=== PATIENT | male | born 1960 | race Asian ===

== ENCOUNTER 2020-03-11 10:15 | Outpatient (REF) | payer OTHER, SELFPAY ==
[2020-03-11 12:09] LABS: Hematocrit 39.6 % (42-52); Hemoglobin 13.7 g/dl (14.0-18.0); Mean Corpuscular HGB Conc 34.6 g/dl (31.0-36.0); Mean Corpuscular Hemoglobin 27.8 pg (27.0-33.0); Mean Corpuscular Volume 80.3 fL (80-98); Mean Platelet Volume 10.2 fL (9.4-12.4); Platelet Count 178 X10*3/uL (160-400); Red Blood Count 4.93 X10*6/uL (4.60-5.80); Red Cell Distribution Width 13.2 % (11.0-16.0); White Blood Count 4.4 X10*3/uL (4.8-10.8)
[2020-03-11 13:06] LABS: Folate 6.8 ng/mL (> or = 4.0); Vitamin B12 1566 pg/mL (200-900)
[2020-03-11 13:07] LABS: Erythrocyte Sedimentation Rate 48 MM/HR (0-15)
[2020-03-11 13:14] LABS: Lymphocytes Absolute Manual 0.8 X10*3/uL (0.6-4.8); Lymphocytes Percent Manual 18 % (20-40); Monocytes Absolute Manual 0.1 X10*3/uL (0.0-1.2); Monocytes Percent Manual 3 % (2-11); Neutrophils Percent Manual 79 % (45-73)
[2020-03-11 13:15] LABS: Band Neutrophils Percent 0 % (3-5); Platelet Estimate NORMAL (NORMAL); Platelet Morphology Comment NORMAL; RBC Morphology NORMAL
[2020-03-11 13:29] LABS: Neutrophils Absolute Manual 3.5 X10*3/uL (2.2-7.9)
[2020-03-11 13:39] LABS: Alanine Aminotransferase 20 U/L (0-40); Albumin Level 4.2 g/dL (3.5-5.0); Alkaline Phosphatase 53 U/L (39-117); Anion Gap 15 (12-20); Aspartate Amino Transferase 22 U/L (5-37); Bilirubin Total 0.9 mg/dL (0.0-1.0); Blood Urea Nitrogen 11 mg/dL (9-16); Calcium 8.7 mg/dL (8.4-10.2); Carbon Dioxide 29 mmol/L (22-29); Chloride 99 mmol/L (96-108); Estimated Glomerular Filt Rate > 60; Glucose Random 133 mg/dL (60-115); Lactate Dehydrogenase 407 U/L (118-273); Potassium 4.3 mmol/l (3.3-5.1); Sodium 139 mmol/L (135-145); Total Protein 6.8 g/dL (6.5-8.0)
[2020-03-11 13:47] LABS: Ferritin 816 ng/mL (20-250)
== END 2020-03-11 10:16 | disposition home or self-care (01) ==
LOC: HO.LAB 10:15
PROVIDERS: Visit Provider Internal Medicine Medical Oncology
DX: C83.00 Small cell B-cell lymphoma, unspecified site (principal); D70.9 Neutropenia, unspecified; I82.409 Acute embolism and thrombosis of unspecified deep veins of unspecified lower extremity
CPT/HCPCS: 36415; 80053; 82607; 82728; 82746; 83615; 85007; 85025; 85027; 85652; 87071; 87205

== ENCOUNTER 2020-03-15 13:07 | Outpatient (REF) | payer OTHER, SELFPAY ==
--- NOTE | 2020-03-15 | US_ITS ---
EXAMINATION: US VENOUS ULTRASOUND WITH DOPPLER LOWER EXTREMITY, RIGHT CLINICAL INFORMATION: Right leg pain and swelling. Lymphoma. Assess for occult DVT. COMPARISON: None TECHNIQUE: Ultrasound of the deep veins is performed from the hip to the calf with compression sonography and color and pulse Doppler assessment. Spectral analysis with color-flow imaging is performed. FINDINGS: There is normal venous compression and respiratory variation and augmented flow. The visualized common femoral vein, superficial femoral vein, profunda femoral vein, popliteal vein, and the trifurcation region shows no evidence of deep venous thrombosis. There is a small cystic area at the lateral calf in the area of symptoms with overall dimensions only 1.2 x 0.9 x 1.1 cm. This resides 2.7 cm deep to the skin. There is some surrounding hyperemia on color Doppler. No internal color flow. Finding is nonspecific. This may represent small residual extension of a popliteal fossa cyst, or, sequela from prior trauma. No solid mass soft tissue. No edema tracking in soft tissue planes. US/US venous duplex LE RT IMPRESSION: 1. No DVT demonstrated in the right lower extremity. 2. Small cystic area lateral calf in area of symptoms 1.2 cm in greatest dimension with some surrounding hyperemia on color Doppler. Finding is nonspecific, possibly residual extension of the popliteal fossa cyst, or sequela from prior trauma. No solid soft tissue mass or edema tracking in soft tissue planes.
== END 2020-03-15 13:08 | disposition home or self-care (01) ==
LOC: HO.HMGCX 13:07
PROVIDERS: Visit Provider Internal Medicine Medical Oncology
DX: C83.00 Small cell B-cell lymphoma, unspecified site (principal); I82.409 Acute embolism and thrombosis of unspecified deep veins of unspecified lower extremity
CPT/HCPCS: 93971

== ENCOUNTER 2020-04-12 13:59 | Outpatient (REF) | payer OTHER, SELFPAY ==
[2020-04-12 14:58] LABS: Blood Urea Nitrogen 8 mg/dL (9-16); Estimated Glomerular Filt Rate > 60
== END 2020-04-12 14:00 | disposition home or self-care (01) ==
LOC: HO.LAB 13:59
PROVIDERS: Visit Provider Internal Medicine Medical Oncology
DX: C83.00 Small cell B-cell lymphoma, unspecified site (principal)
CPT/HCPCS: 82565; 84520

== ENCOUNTER 2020-04-16 09:09 | Outpatient (REF) | payer OTHER, SELFPAY ==
--- NOTE | 2020-04-16 09:13 | CT_ITS ---
EXAMINATION: CT CHEST, ABDOMEN AND PELVIS WITH IV CONTRAST CLINICAL INFORMATION: Lymphoma COMPARISON: Previous CT scan most recent 08/08/2019 and PET/CT scan August 2017 TECHNIQUE: Axial images through the chest, abdomen and pelvis following oral and 85 mL Omnipaque 350 intravenous contrast. Sagittal and coronal reconstructions on the technologist workstation were performed. Patient dose 137+3 3 5 mg/cm. FINDINGS: Chest: The previously identified new small noncalcified right upper lobe nodules on August 2019 exam are no longer seen. There is a new 2 mm noncalcified left upper lobe nodule axial image 182 series 5. There is a 4 mm calcified superior segment left lower lobe nodule axial image 249 series 5 that is stable. The lungs are otherwise clear. There is a 2 cm left thyroid nodule that is stable. There are small mediastinal and hilar lymph nodes that are stable. No enlarged lymph nodes are seen. There is mild coronary artery calcification. The heart does not appear enlarged. There is no pericardial effusion. There is no pleural effusion or pleural thickening. No chest wall mass or enlarged axillary lymph nodes are seen. Abdomen and pelvis: There is a low-attenuation lesion in the posterior segment of the right lobe of the liver with slight peripheral enhancement. Probable likely represents a benign hemangioma. This is similar to previous exams. The liver is otherwise unremarkable. There is a small focus of low attenuation in the gallbladder questionable for cholesterol gallstone. The pancreas is unremarkable. The spleen is unremarkable. The adrenal glands and kidneys are unremarkable. Bladder is not optimally distended. There may be mild diffuse bladder wall thickening. The prostate gland does not appear enlarged. There is mild diverticulosis of the colon. No evidence of diverticulitis is seen. Small and large bowel is otherwise unremarkable. The appendix is unremarkable. The stomach is unremarkable. There are no enlarged lymph nodes. There is a small umbilical hernia containing fat. Vascular structures are unremarkable. There are mild degenerative changes of the spine. Bony structures are otherwise unremarkable. CT/CT abdomen pelvis w con IMPRESSION: Chest: Stable calcified left lower lobe nodule. New small noncalcified left upper lobe nodule. Previously identified small nodules in the right upper lobe on August 2019 exam are no longer seen. Coronary artery calcification. Stable thyroid nodule. Abdomen and pelvis: Stable liver lesion probably representing a hemangioma. Mild diverticulosis of the colon.
[2020-04-16] MEDS: iohexoL 350 MG/ML 100 ML INFUS..BTL 85 ML IV (09:48)
== END 2020-04-16 09:10 | disposition home or self-care (01) ==
LOC: HO.CT 09:09
PROVIDERS: Visit Provider Internal Medicine Medical Oncology
DX: C83.00 Small cell B-cell lymphoma, unspecified site (principal)
CPT/HCPCS: 71260; 74177; Q9967

== ENCOUNTER 2020-05-25 13:17 | Outpatient (REF) | payer OTHER, SELFPAY ==
[2020-05-25 13:56] LABS: Hematocrit 40.9 % (42-52); Hemoglobin 14.1 g/dl (14.0-18.0); Mean Corpuscular HGB Conc 34.5 g/dl (31.0-36.0); Mean Corpuscular Hemoglobin 27.6 pg (27.0-33.0); Mean Platelet Volume 9.9 fL (9.4-12.4); Platelet Count 193 X10*3/uL (160-400); Red Blood Count 5.11 X10*6/uL (4.60-5.80); Red Cell Distribution Width 13.5 % (11.0-16.0); White Blood Count 3.7 X10*3/uL (4.8-10.8)
[2020-05-25 14:25] LABS: Alanine Aminotransferase 22 U/L (0-40); Albumin Level 4.3 g/dL (3.5-5.0); Alkaline Phosphatase 64 U/L (39-117); Anion Gap 11 (12-20); Aspartate Amino Transferase 22 U/L (5-37); Bilirubin Total 0.4 mg/dL (0.0-1.0); Blood Urea Nitrogen 11 mg/dL (9-16); Calcium 9.6 mg/dL (8.4-10.2); Carbon Dioxide 33 mmol/L (22-29); Chloride 101 mmol/L (96-108); Estimated Glomerular Filt Rate > 60; Glucose Random 139 mg/dL (60-115); Lactate Dehydrogenase 318 U/L (118-273); Potassium 4.9 mmol/l (3.3-5.1); Sodium 140 mmol/L (135-145); Total Protein 6.4 g/dL (6.5-8.0)
[2020-05-25 14:40] LABS: Atypical Lymphs Percent Manual 1 % (0-6); Band Neutrophils Percent 2 % (3-5); Eosinophils Absolute Manual 0.2 X10*3/UL (0.0-0.8); Eosinophils Percent Manual 5 % (0-4); Lymphocytes Absolute Manual 0.7 X10*3/uL (0.6-4.8); Lymphocytes Percent Manual 18 % (20-40); Monocytes Absolute Manual 0.1 X10*3/uL (0.0-1.2); Monocytes Percent Manual 3 % (2-11); Myelocytes Percent 1 %; Neutrophils Absolute Manual 2.7 X10*3/uL (2.2-7.9); Neutrophils Percent Manual 70 % (45-73)
[2020-05-25 14:41] LABS: Platelet Estimate NORMAL (NORMAL); Platelet Morphology Comment NORMAL; RBC Morphology NORMAL
[2020-05-25 14:42] LABS: WBC Morphology Comment DYSMORPHIC
[2020-05-25 15:06] LABS: Erythrocyte Sedimentation Rate 14 MM/HR (0-15)
== END 2020-05-25 13:18 | disposition home or self-care (01) ==
LOC: HO.LAB 13:17
PROVIDERS: Visit Provider Internal Medicine Medical Oncology
DX: C83.00 Small cell B-cell lymphoma, unspecified site (principal); C88.0 Waldenstrom macroglobulinemia; E61.1 Iron deficiency
CPT/HCPCS: 36415; 80053; 83615; 85007; 85025; 85027; 85652

== ENCOUNTER → 2020-07-07 09:13 | Outpatient (BNVA) | payer OTHER, SELFPAY | PROVIDERS: Visit Provider Internal Medicine Cardiovascular Disease | DX: R06.00 Dyspnea, unspecified (principal); M79.603 Pain in arm, unspecified; I10 Essential (primary) hypertension; Z79.899 Other long term (current) drug therapy | CPT/HCPCS: 93005 ==

== ENCOUNTER 2020-07-30 06:25 | Outpatient (REF) | payer OTHER, SELFPAY ==
[2020-07-30 07:54] LABS: Basophils Percent Auto 1.1 % (0-2); Eosinophils Absolute Auto 0.2 X10*3/uL (0.0-0.4); Eosinophils Percent Auto 6.3 % (0-4); Hematocrit 41.4 % (42-52); Hemoglobin 14.3 g/dl (14.0-18.0); Imm Gran Abs Auto 0.05 X10*3/uL (0.00-0.03); Imm Gran Pct Auto 1.8 % (0.0-0.4); Lymphocytes Absolute Auto 0.7 X10*3/uL (1.2-4.9); Lymphocytes Percent Auto 24.3 % (20-40); MANUAL DIFF FLAG SCAN; Mean Corpuscular HGB Conc 34.5 g/dl (31.0-36.0); Mean Corpuscular Hemoglobin 27.7 pg (27.0-33.0); Mean Corpuscular Volume 80.2 fL (80-98); Mean Platelet Volume 10.2 fL (9.4-12.4); Monocytes Absolute Auto 0.3 X10*3/uL (0.1-1.2); Monocytes Percent Auto 8.8 % (2-11); Neutrophils Absolute Auto 1.6 X10*3/uL (2.0-8.3); Neutrophils Percent Auto 57.7 % (45-73); Platelet Count 165 X10*3/uL (160-400); Red Blood Count 5.16 X10*6/uL (4.60-5.80); Red Cell Distribution Width 13.5 % (11.0-16.0); SCAN SMEAR FLAG 1; White Blood Count 2.8 X10*3/uL (4.8-10.8)
[2020-07-30 08:00] LABS: Estimated Average Glucose 131 mg/dL; Hemoglobin A1c % 6.2 %
[2020-07-30 08:24] LABS: SLIDE REVIEW VERIFIED
[2020-07-30 08:28] LABS: Erythrocyte Sedimentation Rate 14 MM/HR (0-15)
[2020-07-30 08:29] LABS: Alanine Aminotransferase 23 U/L (0-40); Albumin Level 4.1 g/dL (3.5-5.0); Alkaline Phosphatase 64 U/L (39-117); Anion Gap 14 (12-20); Aspartate Amino Transferase 24 U/L (5-37); Bilirubin Total 0.7 mg/dL (0.0-1.0); Blood Urea Nitrogen 9 mg/dL (9-16); Calcium 8.7 mg/dL (8.4-10.2); Carbon Dioxide 29 mmol/L (22-29); Chloride 102 mmol/L (96-108); Cholesterol 114 mg/dL; Estimated Glomerular Filt Rate > 60; Glucose Random 142 mg/dL (60-115); HDL Cholesterol 38 mg/dL; LDL Cholesterol Calculated 54 mg/dl; Lactate Dehydrogenase 284 U/L (118-273); Potassium 3.5 mmol/L (3.3-5.1); Sodium 141 mmol/L (135-145); Total Protein 6.4 g/dL (6.5-8.0); Triglycerides 112 mg/dL
== END 2020-07-30 06:26 | disposition home or self-care (01) ==
LOC: HO.LAB 06:25
PROVIDERS: Visit Provider Internal Medicine Medical Oncology
DX: C83.00 Small cell B-cell lymphoma, unspecified site (principal); C88.0 Waldenstrom macroglobulinemia; D63.0 Anemia in neoplastic disease; E61.1 Iron deficiency; D69.6 Thrombocytopenia, unspecified; R73.9 Hyperglycemia, unspecified; E66.3 Overweight
CPT/HCPCS: 36415; 80053; 80061; 83036; 83615; 85025; 85652

== ENCOUNTER 2020-10-02 07:32 | Outpatient (REF) | payer OTHER, SELFPAY ==
[2020-10-02 08:03] LABS: MANUAL DIFF FLAG NO
[2020-10-02 08:19] LABS: Basophils Percent Auto 0.7 % (0-2); Eosinophils Absolute Auto 0.1 X10*3/uL (0.0-0.4); Eosinophils Percent Auto 2.1 % (0-4); Hemoglobin 14.1 g/dl (14.0-18.0); Imm Gran Abs Auto 0.09 X10*3/uL (0.00-0.03); Imm Gran Pct Auto 3.1 % (0.0-0.4); Lymphocytes Absolute Auto 0.7 X10*3/uL (1.2-4.9); Lymphocytes Percent Auto 24.3 % (20-40); Mean Corpuscular HGB Conc 34.4 g/dl (31.0-36.0); Mean Corpuscular Hemoglobin 27.9 pg (27.0-33.0); Mean Platelet Volume 9.9 fL (9.4-12.4); Monocytes Absolute Auto 0.3 X10*3/uL (0.1-1.2); Monocytes Percent Auto 11.6 % (2-11); Neutrophils Absolute Auto 1.7 X10*3/uL (2.0-8.3); Neutrophils Percent Auto 58.2 % (45-73); Platelet Count 180 X10*3/uL (160-400); Red Blood Count 5.06 X10*6/uL (4.60-5.80); Red Cell Distribution Width 13.4 % (11.0-16.0); White Blood Count 2.9 X10*3/uL (4.8-10.8)
[2020-10-02 08:35] LABS: Alanine Aminotransferase 26 U/L (0-40); Albumin Level 4.3 g/dL (3.5-5.0); Alkaline Phosphatase 71 U/L (39-117); Anion Gap 13 (12-20); Aspartate Amino Transferase 24 U/L (5-37); Bilirubin Total 0.7 mg/dL (0.0-1.0); Blood Urea Nitrogen 9 mg/dL (9-16); Calcium 10.1 mg/dL (8.4-10.2); Carbon Dioxide 30 mmol/L (22-29); Chloride 101 mmol/L (96-108); Estimated Glomerular Filt Rate > 60; Glucose Fasting 102 mg/dL (60-99); Sodium 140 mmol/L (135-145); Total Protein 6.4 g/dL (6.5-8.0)
[2020-10-02 08:39] LABS: Lactate Dehydrogenase 309 U/L (118-273)
[2020-10-02 09:11] LABS: Erythrocyte Sedimentation Rate 13 MM/HR (0-15)
[2020-10-05 11:56] LABS: IgA 15 mg/dL (47-310); IgG 328 mg/dL (600-1640); IgM 587 mg/dL (50-300)
[2020-10-06 08:27] LABS: Viscosity 1.6 rel to H2O (1.5-1.9)
== END 2020-10-02 07:33 | disposition home or self-care (01) ==
LOC: HO.LAB 07:32
PROVIDERS: Visit Provider Internal Medicine Medical Oncology
DX: C83.00 Small cell B-cell lymphoma, unspecified site (principal); D70.9 Neutropenia, unspecified; D69.6 Thrombocytopenia, unspecified
CPT/HCPCS: 36415; 80053; 82784; 83615; 85025; 85652; 85810; 86334

== ENCOUNTER 2020-11-30 17:40 | Outpatient (REF) | payer OTHER, SELFPAY ==
[2020-11-30 18:12] LABS: Mean Corpuscular Hemoglobin 27.8 pg (27.0-33.0); Mean Corpuscular Volume 79.4 fL (80-98); Mean Platelet Volume 9.9 fL (9.4-12.4); Platelet Count 182 X10*3/uL (160-400); Red Blood Count 5.04 X10*6/uL (4.60-5.80); Red Cell Distribution Width 13.4 % (11.0-16.0); White Blood Count 3.9 X10*3/uL (4.8-10.8)
[2020-11-30 18:26] LABS: Alanine Aminotransferase 25 U/L (0-40); Albumin Level 4.3 g/dL (3.5-5.0); Alkaline Phosphatase 75 U/L (39-117); Anion Gap 14 (12-20); Aspartate Amino Transferase 24 U/L (5-37); Bilirubin Total 0.8 mg/dL (0.0-1.0); Blood Urea Nitrogen 10 mg/dL (9-16); Calcium 9.4 mg/dL (8.4-10.2); Carbon Dioxide 27 mmol/L (22-29); Chloride 102 mmol/L (96-108); Estimated Glomerular Filt Rate > 60; Glucose Random 220 mg/dL (60-115); Lactate Dehydrogenase 360 U/L (118-273); Potassium 3.9 mmol/L (3.3-5.1); Sodium 139 mmol/L (135-145); Total Protein 6.5 g/dL (6.5-8.0)
[2020-11-30 19:04] LABS: Atypical Lymphs Percent Manual 1 % (0-6); Band Neutrophils Percent 5 % (3-5); Eosinophils Percent Manual 1 % (0-4); Lymphocytes Absolute Manual 0.5 X10*3/uL (0.6-4.8); Lymphocytes Percent Manual 14 % (20-40); Metamyelocytes Absolute 0.3 X10*3/uL; Metamyelocytes Percent 8 %; Monocytes Absolute Manual 0.4 X10*3/uL (0.0-1.2); Monocytes Percent Manual 9 % (2-11); Myelocytes Absolute 0.2 X10*/uL; Myelocytes Percent 6 %; Neutrophils Absolute Manual 2.4 X10*3/uL (2.2-7.9); Neutrophils Percent Manual 56 % (45-73)
[2020-11-30 19:05] LABS: RBC Morphology NORMAL
[2020-11-30 19:08] LABS: Platelet Estimate NORMAL (NORMAL); Platelet Morphology Comment NORMAL
[2020-11-30 19:18] LABS: Erythrocyte Sedimentation Rate 13 MM/HR (0-15)
== END 2020-11-30 17:41 | disposition home or self-care (01) ==
LOC: HO.LAB 17:40
PROVIDERS: Visit Provider Internal Medicine Medical Oncology
DX: C83.00 Small cell B-cell lymphoma, unspecified site (principal); D69.6 Thrombocytopenia, unspecified; D63.0 Anemia in neoplastic disease
CPT/HCPCS: 36415; 80053; 83615; 85007; 85027; 85652

== ENCOUNTER 2020-12-01 08:04 | Outpatient (REF) | payer OTHER, SELFPAY ==
--- NOTE | ~2020-12-01 | CT_ITS ---
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 COMPARISON: CT abdomen 04/16/2020, 08/08/2019. TECHNIQUE: Multidetector volumetric images were obtained from the superior aspect of the liver through the pubic symphysis following administration 85 mL of Omnipaque 350 intravenous and oral 450 mL Redicat contrast. Sagittal and coronal reformatted images were obtained on the technologist's workstation. Oral contrast: No This CT examination was performed using dose optimization techniques as appropriate, variously including the following: *Automated exposure control *Adjustment of mA and/or kV according to patient size (this includes techniques or standardized protocols for targeted exams where dose is matched to indication/reason for exam; i.e. extremities or head) *Use of iterative reconstruction technique DLP: 375 mGy-cm FINDINGS: LUNG BASES: The heart size is normal. Minimal dependent atelectasis right lung base. No visible pulmonary nodule in this exam obtained through the lung bases. LIVER, GALLBLADDER, AND BILIARY TREE: The liver is normal in size, shape, and attenuation. There is a 3 mm low-attenuation round lesion in the posterior segment right hepatic lobe, stable. It is best visualized on axial image 12/. No intrahepatic ductal dilation. The gallbladder is unremarkable with no evidence of radiopaque gallstones, gallbladder wall thickening, or obvious pericholecystic inflammatory changes. PANCREAS: Unremarkable. SPLEEN: Unremarkable. ADRENAL GLANDS: Unremarkable. KIDNEYS AND URETERS: The kidneys are normal in size, shape, and attenuation. No hydronephrosis, hydroureter, or calculi seen. No perinephric stranding. BLADDER: Unremarkable. GASTROINTESTINAL TRACT: There is scattered colonic diverticuli, gas and stool without diverticulitis or distention. Oral contrast opacified small bowel loops are normal caliber. The stomach is nondistended and appears unremarkable. ABDOMINAL WALL: No significant hernia is appreciated. LYMPH NODES: Normal. VASCULAR: Unremarkable. PELVIC VISCERA: The prostate gland is normal size with minimal indentation of the base of bladder. No abnormal pelvic lymph nodes. No free fluid. Bilateral inguinal canal appears unremarkable. OSSEOUS STRUCTURES: Mild degenerative disc changes with posterior spondylosis L4-L5 disc level is noted. There is an artifact running throughout the upper mid abdomen and L1 vertebra. CT/CT abdomen pelvis w con IMPRESSION: No acute intra-abdominal process. Stable punctate right hepatic lobe lesion and colonic diverticulosis without diverticulitis. No major change from previous exam 04/16/2020
[2020-12-01] MEDS: iohexoL 350 MG/ML 100 ML INFUS..BTL 85 ML IV (08:37)
== END 2020-12-01 08:05 | disposition home or self-care (01) ==
LOC: HO.CT 08:04
PROVIDERS: Visit Provider Internal Medicine Medical Oncology
DX: C83.00 Small cell B-cell lymphoma, unspecified site (principal)
CPT/HCPCS: 74177; Q9967

== ENCOUNTER 2021-02-05 10:12 | Outpatient (REF) | payer OTHER, SELFPAY ==
[2021-02-05 10:49] LABS: Hematocrit 41.6 % (42-52); Hemoglobin 14.5 g/dl (14.0-18.0); Mean Corpuscular HGB Conc 34.9 g/dl (31.0-36.0); Mean Corpuscular Hemoglobin 27.7 pg (27.0-33.0); Mean Corpuscular Volume 79.5 fL (80-98); Mean Platelet Volume 9.6 fL (9.4-12.4); Platelet Count 182 X10*3/uL (160-400); Red Blood Count 5.23 X10*6/uL (4.60-5.80); Red Cell Distribution Width 13.8 % (11.0-16.0); White Blood Count 3.3 X10*3/uL (4.8-10.8)
[2021-02-05 11:15] LABS: Alanine Aminotransferase 24 U/L (0-40); Albumin Level 4.2 g/dL (3.5-5.0); Alkaline Phosphatase 70 U/L (39-117); Anion Gap 12 (12-20); Aspartate Amino Transferase 22 U/L (5-37); Bilirubin Total 0.6 mg/dL (0.0-1.0); Blood Urea Nitrogen 7 mg/dL (9-16); Calcium 9.5 mg/dL (8.4-10.2); Carbon Dioxide 29 mmol/L (22-29); Chloride 104 mmol/L (96-108); Estimated Glomerular Filt Rate > 60; Glucose Random 167 mg/dL (60-115); Lactate Dehydrogenase 286 U/L (118-273); Potassium 3.5 mmol/L (3.3-5.1); Sodium 141 mmol/L (135-145); Total Protein 6.3 g/dL (6.5-8.0)
[2021-02-05 11:35] LABS: Atypical Lymphs Percent Manual 1 % (0-6); Band Neutrophils Percent 17 % (3-5); Eosinophils Absolute Manual 0.2 X10*3/UL (0.0-0.8); Eosinophils Percent Manual 7 % (0-4); Lymphocytes Absolute Manual 0.4 X10*3/uL (0.6-4.8); Lymphocytes Percent Manual 13 % (20-40); Metamyelocytes Absolute 0.1 X10*3/uL; Metamyelocytes Percent 3 %; Monocytes Absolute Manual 0.1 X10*3/uL (0.0-1.2); Monocytes Percent Manual 2 % (2-11); Neutrophils Absolute Manual 2.4 X10*3/uL (2.2-7.9); Neutrophils Percent Manual 57 % (45-73)
[2021-02-05 11:37] LABS: Nucleated Red Blood Cells 0 /100WBC (0-0)
[2021-02-05 11:40] LABS: Microcytosis 2+ (15-30) /OIF; Platelet Estimate NORMAL (NORMAL); Platelet Morphology Comment NORMAL; RBC Morphology NOTED
[2021-02-05 11:44] LABS: Erythrocyte Sedimentation Rate 12 MM/HR (0-15)
[2021-02-07 23:17] LABS: PES - Abn Protein Band 1 0.4 g/dL (NONE DETECTED); Prot Elec - Alpha1 0.3 g/dL (0.2-0.3); Prot Elec - Alpha2 0.8 g/dL (0.5-0.9); Prot Elec - Beta 1 0.5 g/dL (0.4-0.6); Prot Elec - Beta 2 0.3 g/dL (0.2-0.5); Prot Elec - Gamma 0.7 g/dL (0.8-1.7); Prot Elec - Total Protein 6.6 g/dL (6.1-8.1)
[2021-02-08 23:16] LABS: Viscosity 1.7 rel to H2O (1.5-1.9)
[2021-02-10 13:37] LABS: IgA 15 mg/dL (47-310); IgG 330 mg/dL (600-1640); IgM 577 mg/dL (50-300)
== END 2021-02-05 10:13 | disposition home or self-care (01) ==
LOC: HO.LAB 10:12
PROVIDERS: Visit Provider Internal Medicine Medical Oncology
DX: C88.0 Waldenstrom macroglobulinemia (principal); E61.1 Iron deficiency; D70.9 Neutropenia, unspecified
CPT/HCPCS: 36415; 80053; 82784; 83615; 84165; 85007; 85027; 85652; 85810; 86334

== ENCOUNTER 2021-04-14 09:00 | Outpatient (REF) | payer OTHER, SELFPAY ==
[2021-04-14 09:33] LABS: MANUAL DIFF FLAG NO
[2021-04-14 09:51] LABS: Basophils Percent Auto 0.6 % (0-2); Eosinophils Absolute Auto 0.1 X10*3/uL (0.0-0.4); Eosinophils Percent Auto 2.3 % (0-4); Hematocrit 42.4 % (42.0-52.0); Hemoglobin 14.5 g/dl (14.0-18.0); Imm Gran Abs Auto 0.06 X10*3/uL (0.00-0.03); Imm Gran Pct Auto 1.7 % (0.0-0.4); Lymphocytes Absolute Auto 0.8 X10*3/uL (1.2-4.9); Lymphocytes Percent Auto 22.4 % (20-40); Mean Corpuscular HGB Conc 34.2 g/dl (31.0-36.0); Mean Platelet Volume 9.7 fL (9.4-12.4); Monocytes Absolute Auto 0.3 X10*3/uL (0.1-1.2); Monocytes Percent Auto 7.7 % (2-11); Neutrophils Absolute Auto 2.3 x10*3/uL (2.0-8.3); Neutrophils Percent Auto 65.3 % (45-73); Platelet Count 176 X10*3/uL (160-400); Red Blood Count 5.37 X10*6/uL (4.60-5.80); Red Cell Distribution Width 13.7 % (11.0-16.0); White Blood Count 3.5 X10*3/uL (4.8-10.8)
[2021-04-14 10:36] LABS: Alanine Aminotransferase 30 U/L (0-40); Albumin Level 4.2 g/dL (3.5-5.0); Alkaline Phosphatase 71 U/L (39-117); Anion Gap 11 (12-20); Aspartate Amino Transferase 22 U/L (5-37); Bilirubin Total 0.6 mg/dL (0.0-1.0); Blood Urea Nitrogen 9 mg/dL (9-16); Calcium 9.5 mg/dL (8.4-10.2); Carbon Dioxide 31 mmol/L (22-29); Chloride 103 mmol/L (96-108); Cholesterol 114 mg/dL; Estimated Glomerular Filt Rate > 60; Glucose Fasting 153 mg/dL (60-99); HDL Cholesterol 30 mg/dL; LDL Cholesterol Calculated 61 mg/dl; Potassium 3.9 mmol/L (3.3-5.1); Sodium 141 mmol/L (135-145); Total Protein 6.4 g/dL (6.5-8.0); Triglycerides 118 mg/dL
[2021-04-14 10:50] LABS: Erythrocyte Sedimentation Rate 10 MM/HR (0-15)
[2021-04-14 14:17] LABS: Lactate Dehydrogenase 300 U/L (118-273)
[2021-04-14 14:23] LABS: Estimated Average Glucose 157 mg/dL; Hemoglobin A1c % 7.1 %
== END 2021-04-14 09:01 | disposition home or self-care (01) ==
LOC: HO.LAB 09:00
PROVIDERS: Visit Provider Internal Medicine Medical Oncology
DX: C88.0 Waldenstrom macroglobulinemia (principal); D70.9 Neutropenia, unspecified; D63.0 Anemia in neoplastic disease; E66.3 Overweight
CPT/HCPCS: 36415; 80053; 80061; 83036; 83615; 85025; 85652

== ENCOUNTER 2021-06-14 11:25 | Outpatient (REF) | payer OTHER, SELFPAY ==
[2021-06-14 12:11] LABS: Basophils Percent Auto 0.6 % (0-2); Eosinophils Absolute Auto 0.1 X10*3/uL (0.0-0.4); Eosinophils Percent Auto 3.1 % (0-4); Hemoglobin 14.5 g/dl (14.0-18.0); Imm Gran Abs Auto 0.06 X10*3/uL (0.00-0.03); Imm Gran Pct Auto 1.8 % (0.0-0.4); Lymphocytes Absolute Auto 0.8 X10*3/uL (1.2-4.9); Lymphocytes Percent Auto 24.6 % (20-40); MANUAL DIFF FLAG SCAN; Mean Corpuscular HGB Conc 34.5 g/dl (31.0-36.0); Mean Corpuscular Volume 78.1 fL (80.0-98.0); Mean Platelet Volume 9.6 fL (9.4-12.4); Monocytes Absolute Auto 0.4 X10*3/uL (0.1-1.2); Monocytes Percent Auto 11.1 % (2-11); Neutrophils Absolute Auto 1.9 x10*3/uL (2.0-8.3); Neutrophils Percent Auto 58.8 % (45-73); Platelet Count 201 X10*3/uL (160-400); Red Blood Count 5.38 X10*6/uL (4.60-5.80); Red Cell Distribution Width 13.3 % (11.0-16.0); SCAN SMEAR FLAG 1; White Blood Count 3.3 X10*3/uL (4.8-10.8)
[2021-06-14 12:31] LABS: Alanine Aminotransferase 31 U/L (0-40); Albumin Level 4.4 g/dL (3.5-5.0); Alkaline Phosphatase 76 U/L (39-117); Anion Gap 13 (12-20); Aspartate Amino Transferase 28 U/L (5-37); Bilirubin Total 0.9 mg/dL (0.0-1.0); Blood Urea Nitrogen 9 mg/dL (9-16); Carbon Dioxide 30 mmol/L (22-29); Chloride 100 mmol/L (96-108); Estimated Glomerular Filt Rate > 60; Glucose Random 106 mg/dL (60-115); Lactate Dehydrogenase 278 U/L (118-273); Potassium 3.9 mmol/L (3.3-5.1); Sodium 139 mmol/L (135-145); Total Protein 6.6 g/dL (6.5-8.0)
[2021-06-14 13:22] LABS: SLIDE REVIEW VERIFIED
[2021-06-17 21:27] LABS: IgA 13 mg/dL (47-310); IgG 341 mg/dL (600-1640); IgM 525 mg/dL (50-300)
[2021-06-19 07:31] LABS: Viscosity 1.5 rel to H2O (1.5-1.9)
== END 2021-06-14 11:26 | disposition home or self-care (01) ==
LOC: HO.LAB 11:25
PROVIDERS: Visit Provider Internal Medicine Medical Oncology
DX: C83.00 Small cell B-cell lymphoma, unspecified site (principal); D70.9 Neutropenia, unspecified; D69.6 Thrombocytopenia, unspecified
CPT/HCPCS: 36415; 80053; 82784; 83615; 85025; 85810; 86334

== ENCOUNTER 2021-07-28 08:15 | Outpatient (REF) | payer OTHER, SELFPAY ==
[2021-07-28 08:49] LABS: MANUAL DIFF FLAG NO
[2021-07-28 09:23] LABS: Basophils Percent Auto 0.6 % (0-2); Eosinophils Absolute Auto 0.1 X10*3/uL (0.0-0.4); Eosinophils Percent Auto 2.6 % (0-4); Hematocrit 42.9 % (42.0-52.0); Hemoglobin 14.4 g/dl (14.0-18.0); Imm Gran Abs Auto 0.05 X10*3/uL (0.00-0.03); Imm Gran Pct Auto 1.4 % (0.0-0.4); Lymphocytes Absolute Auto 0.8 X10*3/uL (1.2-4.9); Lymphocytes Percent Auto 22.8 % (20-40); Mean Corpuscular HGB Conc 33.6 g/dl (31.0-36.0); Mean Corpuscular Hemoglobin 26.6 pg (27.0-33.0); Mean Corpuscular Volume 79.2 fL (80.0-98.0); Mean Platelet Volume 9.8 fL (9.4-12.4); Monocytes Absolute Auto 0.3 X10*3/uL (0.1-1.2); Monocytes Percent Auto 9.4 % (2-11); Neutrophils Absolute Auto 2.2 x10*3/uL (2.0-8.3); Neutrophils Percent Auto 63.2 % (45-73); Platelet Count 190 X10*3/uL (160-400); Red Blood Count 5.42 X10*6/uL (4.60-5.80); Red Cell Distribution Width 13.6 % (11.0-16.0); White Blood Count 3.5 X10*3/uL (4.8-10.8)
[2021-07-28 10:02] LABS: Erythrocyte Sedimentation Rate 9 MM/HR (0-15)
[2021-07-28 10:08] LABS: Alanine Aminotransferase 26 U/L (0-40); Albumin Level 4.1 g/dL (3.5-5.0); Alkaline Phosphatase 68 U/L (39-117); Anion Gap 14 (12-20); Aspartate Amino Transferase 23 U/L (5-37); Bilirubin Total 0.7 mg/dL (0.0-1.0); Blood Urea Nitrogen 8 mg/dL (9-16); Calcium 9.6 mg/dL (8.4-10.2); Carbon Dioxide 27 mmol/L (22-29); Chloride 103 mmol/L (96-108); Estimated Glomerular Filt Rate > 60; Glucose Random 120 mg/dL (60-115); Potassium 3.8 mmol/L (3.3-5.1); Sodium 140 mmol/L (135-145); Total Protein 6.3 g/dL (6.5-8.0)
[2021-07-28 10:29] LABS: Lactate Dehydrogenase 320 U/L (118-273)
[2021-07-29 13:41] LABS: Beta-2 Microglobulin, Serum 2.04 mg/L (< OR = 2.51)
[2021-07-29 14:36] LABS: PES - Abn Protein Band 1 0.3 g/dL (NONE DETECTED); Prot Elec - Albumin 3.8 g/dL (3.8-4.8); Prot Elec - Alpha1 0.4 g/dL (0.2-0.3); Prot Elec - Alpha2 0.8 g/dL (0.5-0.9); Prot Elec - Beta 1 0.5 g/dL (0.4-0.6); Prot Elec - Beta 2 0.2 g/dL (0.2-0.5); Prot Elec - Gamma 0.6 g/dL (0.8-1.7); Prot Elec - Total Protein 6.2 g/dL (6.1-8.1)
[2021-08-01 11:21] LABS: IgA 13 mg/dL (47-310); IgG 328 mg/dL (600-1640); IgM 484 mg/dL (50-300)
[2021-08-01 20:25] LABS: Viscosity 1.7 rel to H2O (1.5-1.9)
== END 2021-07-28 08:16 | disposition home or self-care (01) ==
LOC: HO.LAB 08:15
PROVIDERS: Visit Provider Internal Medicine Medical Oncology
DX: C88.0 Waldenstrom macroglobulinemia (principal); D69.6 Thrombocytopenia, unspecified; E61.1 Iron deficiency
CPT/HCPCS: 36415; 80053; 82232; 82784; 83615; 84165; 85025; 85652; 85810; 86334

== ENCOUNTER 2021-07-29 08:42 | Outpatient (REF) | payer OTHER, SELFPAY ==
--- NOTE | ~2021-07-29 | CT_ITS ---
EXAMINATION: CT ABDOMEN AND PELVIS WITH CONTRAST CLINICAL INFORMATION: Small B-cell lymphoma. COMPARISON: Previous CT of the abdomen and pelvis most recent November 2020 TECHNIQUE: Multidetector volumetric images were obtained from the superior aspect of the liver through the pubic symphysis following administration 85 mL of Omnipaque 350 intravenous contrast. Sagittal and coronal reformatted images were obtained on the technologist's workstation. Oral contrast: Yes. This CT examination was performed using dose optimization techniques as appropriate, variously including the following: *Automated exposure control *Adjustment of mA and/or kV according to patient size (this includes techniques or standardized protocols for targeted exams where dose is matched to indication/reason for exam; i.e. extremities or head) *Use of iterative reconstruction technique DLP: 457 mGy-cm for combined CT of the chest, abdomen and pelvis FINDINGS: LUNG BASES: The visualized lung bases are unremarkable. LIVER, GALLBLADDER, AND BILIARY TREE: The liver is normal in size, shape, and attenuation. There are 2 tiny low-attenuation lesions in the lateral segment of the left lobe axial image 11 and posterior segment of the right lobe axial image 12 series 3. These are stable. These are difficult to characterize due to small size but probably represent small cysts. No other focal liver lesion. No biliary duct dilatation. There is high attenuation seen dependently in the gallbladder questionable for sludge or small stones. PANCREAS: The uncinate process of the head of the pancreas is prominent but stable from previous exams. The pancreas is otherwise unremarkable. SPLEEN: Unremarkable. ADRENAL GLANDS: Unremarkable. KIDNEYS AND URETERS: The kidneys are normal in size, shape, and attenuation. No hydronephrosis, hydroureter, or calculi seen. No perinephric stranding. BLADDER: Unremarkable. GASTROINTESTINAL TRACT: There is diverticulosis of the colon. The small and large bowel are otherwise unremarkable. The appendix is unremarkable. ABDOMINAL WALL: No significant hernia is appreciated. LYMPH NODES: Normal. VASCULAR: Unremarkable. PELVIC VISCERA: Unremarkable. OSSEOUS STRUCTURES: There are mild degenerative changes of the spine. CT/CT abdomen pelvis w con IMPRESSION: Dependent attenuation in the gallbladder questionable for sludge or small stones. Otherwise stable exam including small probable liver cysts and mild diverticulosis of the colon. No adenopathy is seen. Fleischner guidelines were followed.
--- NOTE | ~2021-07-29 | CT_ITS ---
EXAMINATION: CT CHEST WITH CONTRAST CLINICAL INFORMATION: Small B-cell lymphoma. COMPARISON: Previous chest CT most recent April 2020. TECHNIQUE: Multidetector volumetric CT imaging of the chest was obtained after the administration of 85 mL of Omnipaque 350 intravenous contrast without immediate adverse reactions. Axial MIP volume rendering provided. Sagittal and coronal reformatted images were obtained. This CT examination was performed using dose optimization techniques as appropriate, variously including the following: *Automated exposure control *Adjustment of mA and/or kV according to patient size (this includes techniques or standardized protocols for targeted exams where dose is matched to indication/reason for exam; i.e. extremities or head) *Use of iterative reconstruction technique DLP: 457 mGy-cm for combined CT of the chest, abdomen and pelvis. FINDINGS: LOOM SETTER FOURDRINIER: Unremarkable. LUNGS: The 4 mm calcified superior segment left lower lobe nodule axial image 168 series 7 is stable. The lungs are otherwise clear. The previously identified new 2 mm noncalcified left upper lobe nodule on April 2020 exam is no longer seen and may represent bronchial soft tissue opacification. MEDIASTINUM: There is a 2 cm nodule in the left lobe of the thyroid gland that is stable. There are no enlarged hilar or mediastinal lymph nodes. The heart does not appear enlarged. There is mild coronary artery calcification. PLEURA: There is no pleural effusion. No pleural mass or thickening. AXILLA: No lymphadenopathy. UPPER ABDOMEN: Unremarkable. OSSEOUS STRUCTURES: There are mild degenerative changes of the spine. CT/CT chest w con IMPRESSION: Stable small calcified superior segment left lower lobe nodule. Stable 2 cm left thyroid nodule. Coronary artery calcification. Fleischner guidelines were followed.
[2021-07-29] MEDS: iohexoL 350 MG/ML 100 ML INFUS..BTL IV (09:26)
== END 2021-07-29 08:43 | disposition home or self-care (01) ==
LOC: HO.CT 08:42
PROVIDERS: Visit Provider Internal Medicine Medical Oncology
DX: C83.00 Small cell B-cell lymphoma, unspecified site (principal)
CPT/HCPCS: 71260; 74177; Q9967

== ENCOUNTER 2021-11-15 07:10 | Outpatient (REF) | payer OTHER, SELFPAY ==
[2021-11-15 07:53] LABS: Hematocrit 41.5 % (42.0-52.0); Hemoglobin 14.2 g/dl (14.0-18.0); Mean Corpuscular HGB Conc 34.2 g/dl (31.0-36.0); Mean Corpuscular Hemoglobin 26.8 pg (27.0-33.0); Mean Corpuscular Volume 78.3 fL (80.0-98.0); Platelet Count 184 X10*3/uL (160-400); Red Cell Distribution Width 13.7 % (11.0-16.0)
[2021-11-15 08:01] LABS: Estimated Average Glucose 154 mg/dL
[2021-11-15 08:26] LABS: Alanine Aminotransferase 27 U/L (0-40); Albumin Level 4.2 g/dL (3.5-5.0); Alkaline Phosphatase 68 U/L (39-117); Anion Gap 10 (12-20); Aspartate Amino Transferase 23 U/L (5-37); Bilirubin Total 0.9 mg/dL (0.0-1.0); Blood Urea Nitrogen 8 mg/dL (9-16); Calcium 9.5 mg/dL (8.4-10.2); Carbon Dioxide 30 mmol/L (22-29); Chloride 104 mmol/L (96-108); Cholesterol 121 mg/dL; Estimated Glomerular Filt Rate > 60; Glucose Fasting 133 mg/dL (60-99); HDL Cholesterol 33 mg/dL; LDL Cholesterol Calculated 59 mg/dl; Potassium 3.9 mmol/L (3.3-5.1); Sodium 140 mmol/L (135-145); Total Protein 6.2 g/dL (6.5-8.0); Triglycerides 145 mg/dL
[2021-11-15 08:39] LABS: Lactate Dehydrogenase 268 U/L (118-273)
[2021-11-15 08:44] LABS: Band Neutrophils Percent 33 % (3-5); Basophils Abs Manual 0.1 X10*3/uL (0.0-0.2); Basophils Percent Manual 2 % (0-2); Eosinophils Absolute Manual 0.1 X10*3/uL (0.0-0.4); Eosinophils Percent Manual 2 % (0-4); Lymphocytes Absolute Manual 0.5 X10*3/uL (1.2-4.9); Lymphocytes Percent Manual 17 % (20-40); Metamyelocytes Absolute 0.1 X10*3/uL; Metamyelocytes Percent 2 %; Monocytes Absolute Manual 0.1 X10*3/uL (0.1-1.2); Monocytes Percent Manual 4 % (2-11); Neutrophils Absolute Manual 2.2 X10*3/uL (2.0-8.3); Neutrophils Percent Manual 40 % (45-73)
[2021-11-15 08:47] LABS: Prostate Specific Antigen 0.78 ng/mL (<0.05-4.0)
[2021-11-15 08:53] LABS: RBC Morphology NOTED
[2021-11-15 08:54] LABS: Microcytosis 1+ (5-14) /OIF; Platelet Estimate NORMAL (NORMAL); Platelet Morphology Comment NORMAL
[2021-11-15 09:06] LABS: Creatinine Urine 87.52 mg/dL; Microalbumin Urine < 5.0 mg/L
[2021-11-17 17:16] LABS: Beta-2 Microglobulin, Serum 1.92 mg/L (< OR = 2.51)
[2021-11-17 22:01] LABS: PES - Abn Protein Band 1 0.3 g/dL (NONE DETECTED); Prot Elec - Albumin 3.8 g/dL (3.8-4.8); Prot Elec - Alpha1 0.3 g/dL (0.2-0.3); Prot Elec - Alpha2 0.7 g/dL (0.5-0.9); Prot Elec - Beta 1 0.5 g/dL (0.4-0.6); Prot Elec - Beta 2 0.3 g/dL (0.2-0.5); Prot Elec - Gamma 0.6 g/dL (0.8-1.7); Prot Elec - Total Protein 6.1 g/dL (6.1-8.1)
[2021-11-18 12:02] LABS: IgA 13 mg/dL (47-310); IgG 318 mg/dL (600-1640); IgM 444 mg/dL (50-300)
== END 2021-11-15 07:11 | disposition home or self-care (01) ==
LOC: HO.LAB 07:10
PROVIDERS: Visit Provider Internal Medicine Medical Oncology
DX: Z12.5 Encounter for screening for malignant neoplasm of prostate (principal); C83.00 Small cell B-cell lymphoma, unspecified site; I10 Essential (primary) hypertension; I25.10 Atherosclerotic heart disease of native coronary artery without angina pectoris; E11.9 Type 2 diabetes mellitus without complications
CPT/HCPCS: 36415; 80053; 80061; 82043; 82232; 82784; 83036; 83615; 84153; 84165; 85007; 85027; 86334

== ENCOUNTER 2022-02-20 07:22 | Outpatient (REF) | payer OTHER, SELFPAY ==
--- NOTE | ~2022-02-20 | XR_ITS ---
EXAMINATION: XR CHEST CLINICAL INFORMATION: History of lymphoma. Fever. Rule out out pneumonia. COMPARISON: Previous chest x-ray August [address] July 2021 TECHNIQUE: 2 views of the chest were obtained. FINDINGS: The cardiac and mediastinal contours are normal. Stable left upper nodule compared with previous CT likely represents a calcified granuloma. This is in between the left anterior third and fourth ribs. The lungs are otherwise clear without evidence of pneumonia. No pleural effusion or pneumothorax. Degenerative changes of the spine. XR/XR chest 2V IMPRESSION: No evidence of pneumonia.
[2022-02-20 08:11] LABS: Hematocrit 38.6 % (42.0-52.0); Hemoglobin 12.9 g/dl (14.0-18.0); Mean Corpuscular HGB Conc 33.4 g/dl (31.0-36.0); Mean Corpuscular Hemoglobin 25.5 pg (27.0-33.0); Mean Corpuscular Volume 76.4 fL (80.0-98.0); Mean Platelet Volume 9.5 fL (9.4-12.4); Platelet Count 196 X10*3/uL (160-400); Red Blood Count 5.05 X10*6/uL (4.60-5.80); Red Cell Distribution Width 13.2 % (11.0-16.0)
[2022-02-20 08:14] LABS: White Blood Count 2.3 X10*3/uL (4.8-10.8)
[2022-02-20 08:29] LABS: Appearance Urine Clear; Color Urine Yellow; Glucose Urine UA Negative (Negative); Leukocyte Esterase Urine Negative (Negative); Nitrite Urine Negative (Negative); PH 7.5 (5.0-9.0); Urine Blood Negative (Negative); Urine Ketones Negative (Negative); Urine Protein Negative (Neg-Trace)
[2022-02-20 08:40] LABS: Band Neutrophils Percent 33 % (3-5); Lymphocytes Absolute Manual 0.4 X10*3/uL (1.2-4.9); Lymphocytes Percent Manual 17 % (20-40); Monocytes Absolute Manual 0.1 X10*3/uL (0.1-1.2); Monocytes Percent Manual 6 % (2-11); Neutrophils Absolute Manual 1.8 X10*3/uL (2.0-8.3); Neutrophils Percent Manual 44 % (45-73)
[2022-02-20 08:44] LABS: Alanine Aminotransferase 18 U/L (0-40); Alkaline Phosphatase 47 U/L (39-117); Anion Gap 18 (12-20); Aspartate Amino Transferase 27 U/L (5-37); Bilirubin Total 0.7 mg/dL (0.0-1.0); Blood Urea Nitrogen 6 mg/dL (9-16); Calcium 9.3 mg/dL (8.4-10.2); Carbon Dioxide 25 mmol/L (22-29); Chloride 103 mmol/L (96-108); Dohle Bodies PRESENT; Estimated Glomerular Filt Rate > 60; Glucose Random 108 mg/dL (60-115); Lactate Dehydrogenase 379 U/L (118-273); Microcytosis 1+ (5-14) /OIF; Ovalocytes 1+ (5-14) /OIF; Polychromasia 1+ (0-2) /OIF; Potassium 3.9 mmol/L (3.3-5.1); RBC Morphology NOTED; Sodium 142 mmol/L (135-145); Total Protein 6.2 g/dL (6.5-8.0)
[2022-02-20 08:45] LABS: Platelet Estimate NORMAL (NORMAL); Platelet Morphology Comment NORMAL; WBC Morphology Comment DYSMORPHIC
[2022-02-20 09:07] LABS: Ferritin 377 ng/mL (20-250)
[2022-02-22 14:46] LABS: Beta-2 Microglobulin, Serum 3.12 mg/L (< OR = 2.51); IgA 12 mg/dL (47-310); IgG 283 mg/dL (600-1640); IgM 316 mg/dL (50-300)
[2022-02-22 21:55] LABS: PES - Abn Protein Band 1 0.2 g/dL (NONE DETECTED); Prot Elec - Albumin 3.3 g/dL (3.8-4.8); Prot Elec - Alpha1 0.5 g/dL (0.2-0.3); Prot Elec - Alpha2 1.2 g/dL (0.5-0.9); Prot Elec - Beta 1 0.4 g/dL (0.4-0.6); Prot Elec - Beta 2 0.3 g/dL (0.2-0.5); Prot Elec - Gamma 0.5 g/dL (0.8-1.7); Prot Elec - Total Protein 6.1 g/dL (6.1-8.1)
== END 2022-02-20 07:23 | disposition home or self-care (01) ==
LOC: HO.XRAY 07:22
PROVIDERS: Visit Provider Internal Medicine Medical Oncology
DX: C83.00 Small cell B-cell lymphoma, unspecified site (principal); D70.9 Neutropenia, unspecified; D63.0 Anemia in neoplastic disease; R30.0 Dysuria; R50.81 Fever presenting with conditions classified elsewhere
CPT/HCPCS: 36415; 71046; 80053; 81003; 82232; 82728; 82784; 83615; 84165; 85007; 85025; 85027

== ENCOUNTER 2022-03-02 14:03 | Outpatient (REF) | payer OTHER, SELFPAY ==
--- NOTE | ~2022-03-02 | CT_ITS ---
EXAMINATION: CT CHEST, ABDOMEN AND PELVIS WITH CONTRAST CLINICAL INFORMATION: Small cell B-cell lymphoma. COMPARISON: CT chest, abdomen and pelvis 07/29/2021. TECHNIQUE: Multidetector volumetric imaging was performed from the thoracic inlet through the pubic symphysis following administration of 85 mL Omnipaque 350. Sagittal and coronal reformatted images were obtained on the technologist's workstation. This CT examination was performed using dose optimization techniques as appropriate, variously including the following: *Automated exposure control *Adjustment of mA and/or kV according to patient size (this includes techniques or standardized protocols for targeted exams where dose is matched to indication/reason for exam; i.e. extremities or head) *Use of iterative reconstruction technique DLP: 755 mGy-cm FINDINGS: CHEST: Lung: No suspicious lung masses are seen. Some pleural thickening is noted along the major fissure on the right laterally. Some nonspecific ground-glass changes are seen with one large area in the right middle lobe measuring about 3.5 cm in size (7:284). An additional area is seen in the right lower lobe with infrahilar ground-glass changes and some small nodular densities (7:286). All of these findings are new when compared to the prior study. Mediastinum: A 2.3 x 1.8 x 2.4 cm mass is seen in the left lobe of the thyroid. A peripheral punctate calcification is present. Appearances are unchanged when compared to the prior. Mild coronary calcifications are present. Pericardium/Pleura: No significant effusion. No pleural mass or thickening. Chest Wall/Axilla: Unremarkable. ABDOMEN/PELVIS: Peritoneal Space: No significant free air or free fluid identified. Liver, Gallbladder, Biliary Tree: The liver is normal in size, shape, and attenuation. A tiny hypodensity is seen in a subcapsular position medially in the right lobe of the liver under a centimeter in size (15:54). No additional focal hepatic lesion or biliary ductal dilatation is present. The gallbladder is contracted and contains gallstones without obvious pericholecystic inflammatory changes. Pancreas: Unremarkable. Spleen: The spleen is mildly enlarged at 12.4 cm. Adrenal Glands: Unremarkable. Kidneys and Ureters: The kidneys are normal in size, shape, and attenuation. No hydronephrosis, hydroureter, or calculi seen. No perinephric stranding. Bladder: Unremarkable. Gastrointestinal Tract: The small and large bowel are unremarkable. The appendix is unremarkable. Abdominal Wall: No significant hernia is appreciated. Lymph Nodes: No lymphadenopathy. Vascular: Calcific plaque in the aorta and iliac vessels without aneurysm. The IVC appears unremarkable. PELVIC VISCERA: Mildly prominent prostate. Normal seminal vesicles. OSSEUS STRUCTURES: Mild degenerative changes are noted in the spine. No bony destructive lesions are seen. CT/CT abdomen pelvis w IV con IMPRESSION: 1. No evidence of lymphoma in the chest, abdomen or pelvis. 2. New ground-glass changes in the right lung as described above. These are most likely inflammatory. 3. Stable left thyroid mass. 4. Other incidental findings as described above. Fleischner guidelines were followed.
[2022-03-02 15:01] LABS: MANUAL DIFF FLAG NO
[2022-03-02 16:13] LABS: Basophils Percent Auto 0.6 % (0-2); Eosinophils Percent Auto 0.6 % (0-4); Hematocrit 38.7 % (42.0-52.0); Hemoglobin 12.8 g/dl (14.0-18.0); Imm Gran Abs Auto 0.05 X10*3/uL (0.00-0.03); Imm Gran Pct Auto 1.6 % (0.0-0.4); Lymphocytes Absolute Auto 0.8 X10*3/uL (1.2-4.9); Lymphocytes Percent Auto 24.8 % (20-40); Mean Corpuscular HGB Conc 33.1 g/dl (31.0-36.0); Mean Corpuscular Volume 75.7 fL (80.0-98.0); Mean Platelet Volume 9.7 fL (9.4-12.4); Monocytes Absolute Auto 0.4 X10*3/uL (0.1-1.2); Monocytes Percent Auto 11.8 % (2-11); Neutrophils Absolute Auto 1.9 x10*3/uL (2.0-8.3); Neutrophils Percent Auto 60.6 % (45-73); Platelet Count 233 X10*3/uL (160-400); Red Blood Count 5.11 X10*6/uL (4.60-5.80); Red Cell Distribution Width 13.2 % (11.0-16.0); White Blood Count 3.1 X10*3/uL (4.8-10.8)
[2022-03-02] MEDS: iohexoL 350 MG/ML 100 ML INFUS..BTL IV (16:31)
[2022-03-02] MEDS: Barium Sulfate Oral (Mocha) 450 ML ORAL.SUSP 900 ML PO (16:32)
[2022-03-02 16:38] LABS: Alanine Aminotransferase 22 U/L (0-40); Alkaline Phosphatase 47 U/L (39-117); Anion Gap 16 (12-20); Aspartate Amino Transferase 27 U/L (5-37); Bilirubin Total 0.9 mg/dL (0.0-1.0); Blood Urea Nitrogen 7 mg/dL (9-16); Calcium 9.2 mg/dL (8.4-10.2); Carbon Dioxide 26 mmol/L (22-29); Chloride 103 mmol/L (96-108); Estimated Glomerular Filt Rate > 60; Glucose Random 76 mg/dL (60-115); Sodium 141 mmol/L (135-145); Total Protein 6.3 g/dL (6.5-8.0)
[2022-03-02 16:44] LABS: Erythrocyte Sedimentation Rate 62 MM/HR (0-15)
[2022-03-04 14:33] LABS: Beta-2 Microglobulin, Serum 2.44 mg/L (< OR = 2.51)
[2022-03-05 03:17] LABS: TS Negative Control Passed; TS Panel A 0; TS Panel B 7; TS Positive Control Passed; TSpotTB Borderline (Negative)
== END 2022-03-02 14:04 | disposition home or self-care (01) ==
LOC: HO.CT 14:03
PROVIDERS: Visit Provider Internal Medicine Medical Oncology
DX: Z11.1 Encounter for screening for respiratory tuberculosis (principal); C88.0 Waldenstrom macroglobulinemia; F50.81 Binge eating disorder; D72.819 Decreased white blood cell count, unspecified; E53.8 Deficiency of other specified B group vitamins
CPT/HCPCS: 36415; 71260; 74177; 80053; 82232; 85025; 85652; 86481; Q9967

== ENCOUNTER 2022-03-15 10:48 | Outpatient (REF) | payer OTHER, SELFPAY ==
[2022-03-15 12:21] LABS: MANUAL DIFF FLAG NO
[2022-03-15 12:36] LABS: Basophils Percent Auto 0.3 % (0-2); Hematocrit 37.9 % (42.0-52.0); Hemoglobin 12.8 g/dl (14.0-18.0); Imm Gran Abs Auto 0.11 X10*3/uL (0.00-0.03); Imm Gran Pct Auto 1.8 % (0.0-0.4); Lymphocytes Absolute Auto 0.7 X10*3/uL (1.2-4.9); Lymphocytes Percent Auto 11.2 % (20-40); Mean Corpuscular HGB Conc 33.8 g/dl (31.0-36.0); Mean Corpuscular Hemoglobin 25.2 pg (27.0-33.0); Mean Corpuscular Volume 74.8 fL (80.0-98.0); Mean Platelet Volume 9.9 fL (9.4-12.4); Monocytes Absolute Auto 0.5 X10*3/uL (0.1-1.2); Monocytes Percent Auto 7.5 % (2-11); Neutrophils Absolute Auto 4.8 x10*3/uL (2.0-8.3); Neutrophils Percent Auto 79.2 % (45-73); Platelet Count 195 X10*3/uL (160-400); Red Blood Count 5.07 X10*6/uL (4.60-5.80); Red Cell Distribution Width 13.9 % (11.0-16.0)
[2022-03-15 13:05] LABS: Alanine Aminotransferase 15 U/L (0-40); Albumin Level 3.9 g/dL (3.5-5.0); Alkaline Phosphatase 44 U/L (39-117); Anion Gap 14 (12-20); Aspartate Amino Transferase 21 U/L (5-37); Bilirubin Total 0.7 mg/dL (0.0-1.0); Blood Urea Nitrogen 8 mg/dL (9-16); Calcium 9.2 mg/dL (8.4-10.2); Carbon Dioxide 27 mmol/L (22-29); Chloride 107 mmol/L (96-108); Estimated Glomerular Filt Rate > 60; Glucose Random 113 mg/dL (60-115); Lactate Dehydrogenase 322 U/L (118-273); Potassium 4.4 mmol/L (3.3-5.1); Sodium 144 mmol/L (135-145); Total Protein 6.3 g/dL (6.5-8.0)
== END 2022-03-15 10:49 | disposition home or self-care (01) ==
LOC: HO.LAB 10:48
PROVIDERS: Internal Medicine; Visit Provider Internal Medicine Medical Oncology
DX: R06.00 Dyspnea, unspecified (principal); C83.00 Small cell B-cell lymphoma, unspecified site; D70.9 Neutropenia, unspecified
CPT/HCPCS: 80053; 83615; 85025; 86403

== ENCOUNTER 2022-04-06 14:15 | Outpatient (REF) | payer OTHER, SELFPAY ==
--- NOTE | ~2022-04-06 | XR_ITS ---
EXAMINATION: XR CHEST CLINICAL INFORMATION: CT chest 03/02/2022 and chest x-ray 02/20/2022. COMPARISON: None TECHNIQUE: 2 views of the chest were obtained. FINDINGS: The lungs are fairly well-expanded with minimal haziness in right middle lobe and lingular segments suspicious of residual old inflammatory process. The upper lungs are clear. The heart size and pulmonary vascularity is normal. There is mild spondylosis of dorsal spine. No lytic or sclerotic process seen. XR/XR chest 2V IMPRESSION: Minimal haziness in right middle lobe and lingular segments likely residual old inflammatory process. No new acute pneumonic process seen.
[2022-04-06 14:51] LABS: Hematocrit 36.7 % (42.0-52.0); Hemoglobin 11.7 g/dl (14.0-18.0); Mean Corpuscular HGB Conc 31.9 g/dl (31.0-36.0); Mean Corpuscular Hemoglobin 23.8 pg (27.0-33.0); Mean Corpuscular Volume 74.6 fL (80.0-98.0); Mean Platelet Volume 9.6 fL (9.4-12.4); Platelet Count 180 X10*3/uL (160-400); Red Blood Count 4.92 X10*6/uL (4.60-5.80); Red Cell Distribution Width 15.1 % (11.0-16.0)
[2022-04-06 15:19] LABS: Anion Gap 11 (12-20); Blood Urea Nitrogen 8 mg/dL (9-16); Calcium 9.2 mg/dL (8.4-10.2); Carbon Dioxide 30 mmol/L (22-29); Chloride 103 mmol/L (96-108); Estimated Glomerular Filt Rate > 60; Glucose Random 111 mg/dL (60-115); Potassium 3.7 mmol/L (3.3-5.1); Sodium 140 mmol/L (135-145)
[2022-04-06 15:29] LABS: Atypical Lymph Absolute Manual 0.1 x10*3/uL; Atypical Lymphs Percent Manual 2 % (0-6); Band Neutrophils Percent 16 % (3-5); Eosinophils Absolute Manual 0.1 X10*3/uL (0.0-0.4); Eosinophils Percent Manual 3 % (0-4); Lymphocytes Absolute Manual 0.6 X10*3/uL (1.2-4.9); Lymphocytes Percent Manual 14 % (20-40); Metamyelocytes Absolute 0.1 X10*3/uL; Metamyelocytes Percent 2 %; Monocytes Absolute Manual 0.4 X10*3/uL (0.1-1.2); Monocytes Percent Manual 9 % (2-11); Myelocytes Percent 1 %; Neutrophils Absolute Manual 2.8 X10*3/uL (2.0-8.3); Neutrophils Percent Manual 53 % (45-73)
[2022-04-06 15:30] LABS: Dohle Bodies PRESENT
[2022-04-06 15:31] LABS: Erythrocyte Sedimentation Rate 53 MM/HR (0-15); Microcytosis 1+ (5-14) /OIF; RBC Morphology NOTED
[2022-04-06 15:32] LABS: Burr Cells 1+ (0-2) /OIF
[2022-04-06 15:33] LABS: Platelet Estimate NORMAL (NORMAL); Platelet Morphology Comment NORMAL; Polychromasia 1+ (0-2) /OIF
[2022-04-08 02:27] LABS: Immunoglobulin E 3 kU/L (<OR=114)
[2022-04-09 13:28] LABS: Anti Nuclear Antibody Screen NEGATIVE (NEGATIVE)
[2022-04-10 11:19] LABS: IgA 10 mg/dL (47-310); IgG 286 mg/dL (600-1640); IgM 257 mg/dL (50-300)
[2022-04-10 13:07] LABS: Immunoglobulin G Subclass 1 157 mg/dL (382-929); Immunoglobulin G Subclass 2 82 mg/dL (241-700); Immunoglobulin G Subclass 3 12 mg/dL (22-178); Immunoglobulin G Subclass 4 11.4 mg/dL (4-86); Immunoglobulin G Total 279 mg/dL (600-1640)
[2022-04-11 13:13] LABS: SARS COV2 IgG Negative (Negative)
[2022-04-14 13:44] LABS: Asperg fumigatus Precip Abs NEGATIVE (NEGATIVE); Micropoly faeni Abs NEGATIVE (NEGATIVE); Pigeon serum Abs NEGATIVE (NEGATIVE); Saccharo pora viridis Abs NEGATIVE (NEGATIVE); Thermo candidus Abs NEGATIVE (NEGATIVE); Thermoa vulgaris #1 NEGATIVE (NEGATIVE)
== END 2022-04-06 14:16 | disposition home or self-care (01) ==
LOC: HO.LAB 14:15
PROVIDERS: Visit Provider Hospitalist
DX: J18.9 Pneumonia, unspecified organism (principal); R91.8 Other nonspecific abnormal finding of lung field
CPT/HCPCS: 36415; 71046; 80048; 82784; 82785; 85007; 85027; 85652; 86038; 86039; 86331; 86606; 86609; 86769

== ENCOUNTER 2022-04-27 07:40 | Day surgery (SDC) | payer OTHER, SELFPAY ==
[2022-04-24 09:34] VITALS: BMI 24.5
--- NOTE | 2022-04-26 09:06 | P.CONAN_ITS ---
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 (Acute) Fever (Acute) Pneumonitis (Acute) Pneumonia (Acute) Waldenstrom macroglobulinemia (Acute) Essential hypertension (Acute) Dyspnea (Acute) Arm pain (Acute) Past Medical History Medical History Hypogammaglobulinemia Pneumonia Pneumonitis Waldenstrom macroglobulinemia Social History Social History Alcohol intake: current Alcohol intake frequency: does not drink Patient Tobacco Use Status: Former Tobacco user Tobacco use type: Cigarette Years Smoked: 10+ Years Are you DNR?: No Advance Directives: No Advance Directives Information Provided: Yes Meds Allergies Allergy/AdvReac Type Severity Reaction Status Date / Time No Known Allergies Allergy Verified 04/12/22 10:42 [No Known Allergies*] Home Medications Medication Instructions Recorded Confirmed Last Taken Type ibrutinib 280 mg tablet 280 mg PO .COMPLEX 07/07/20 07/07/20 Unknown History metformin 500 mg tablet 500 mg PO DAILY 03/27/22 Unknown History rituximab 10 mg/mL mg IV 04/12/22 Unknown History concentrate,intravenous (Rituxan) Exam Exam Date and Time: April 26, 2022 0906 Height,Weight and Vital Signs: Height 5 ft 6 in Weight 68.946 kg Pertinent Lab Results Pertinent Lab Results: Laboratory Tests 04/06/22 04/06/22 14:30 14:30 WBC 4.0 L Hgb 11.7 L Hct 36.7 L Plt Count 180 Sodium 140 Potassium 3.7 Chloride 103 Carbon Dioxide 30 H BUN 8 L Creatinine 0.80 Assessment and Plan Assessment Anesthesia Assessment: Chart Reviewed Documented by User: Olivier Edgar MD 04/27/22 08:30 [facility] Past Medical History Medical History Hypogammaglobulinemia Pneumonia Pneumonitis Waldenstrom macroglobulinemia Family History Family history of problems with anesthesia: No Surgical History History of Problems with Anesthesia: No Social History Social History Alcohol intake: current Alcohol intake frequency: does not drink Patient Tobacco Use Status: Former Tobacco user Tobacco use type: Cigarette Years Smoked: 10+ Years Are you DNR?: No Advance Directives: No Advance Directives Information Provided: Yes Meds Allergies Allergy/AdvReac Type Severity Reaction Status Date / Time No Known Allergies Allergy Verified 04/12/22 10:42 [No Known Allergies*] Home Medications Medication Instructions Recorded Confirmed Last Taken Type ibrutinib 280 mg tablet 280 mg PO .COMPLEX 07/07/20 07/07/20 Unknown History metformin 500 mg tablet 500 mg PO DAILY 03/27/22 Unknown History rituximab 10 mg/mL mg IV 04/12/22 Unknown History concentrate,intravenous (Rituxan) Exam Airway Mallampati Class: II TM Dist: >3cm Neck ROM: Full Loose/Missing/Broken Teeth: No Heart: [id number] Lungs: cta b/l Assessment and Plan Assessment Anesthesia Assessment: Anesthesia Plan Discussed Final Anesthetic Review Family History of Problems with Anesthesia: No History of Problems with Anesthesia: No NPO: Yes ASA Class: III Final Preanesthetic Review: No Changes in Pt Med Stat, Meds/Allgs Chart Reviewed, Consent Obtained/Reviewed and Anes Risks/Benef Reviewed Patient Risk: Intermediate Procedure Risk: Intermediate Assessment/Block/Sedation in SS: Assess/Block/Sedation-SS Anesthetic Plan Anesthetic Plan: GA and Agree w/ Assess. and Plan Disposition: Standard PACU
[2022-04-27] VITALS (8 sets, daily range): BP systolic 125–155; BP diastolic 68–84; PULSE 68–73; RESP 16–19; TEMP 36.3–36.6; O2SAT 95–100
[2022-04-27 07:53] LABS: Glucose, Whole Blood 104 mg/dL (60-115)
[2022-04-27] MEDS: Lactated Ringers 1,000 ML 100 ML IVCONT (08:09)
--- NOTE | 2022-04-27 08:31 | MHC.SHP ---
Pre-Procedural Eval Section A Date of Service: 04/27/22 The patient is an INPATIENT: No Changes since office visit: No Cold of Flu in the past 2 weeks, No New Medical Problems, No Changes in Medication and No Patient answered all questions Section B Chief Complaint: Pneumonia, unspecified organism Allergies: Allergies Allergy/AdvReac Type Severity Reaction Status Date / Time No Known Allergies Allergy Verified 04/12/22 10:42 [No Known Allergies*] Plan I have reviewed the history and physical and performed a pertinent physical examination on my patient. No changes have occurred unless specified. Time Spent With Patient Time: Total time managing care of this patient today ____ minutes.
--- NOTE | 2022-04-27 10:07 | PM.OP ---
Brief Operative Note Date of Service: 04/27/22 Pre-op diagnosis: pneumonitis Post-op diagnosis: other (bronchitis, pneumonitis) Procedure: Bronchoscopy with BAL and brushings, washings Implants: Surgeon: Sam Mcbride MD Anesthesia: GLMA Was an Java Swing Developer used for this Procedure?: No Estimated blood loss (mL): 0 Condition: stable Disposition: same day
[2022-04-27 12:43] LABS: Lymphocytes Bronchial 45 %; Neutrophils Bronchial 5 %; RBC Bronchial Washing 75 MM*3; WBC Bronchial Washing 21 MM*3
[2022-04-27 12:44] LABS: Other Bronchial 50 %
[2022-05-04 21:13] LABS: Pneumocystis jir Ql PCR NOT DETECTED; Pneumocystis jir source BAL
--- NOTE | 2022-05-08 11:55 | OP_ITS ---
SURGEON: Sam Mcbride MD PREOPERATIVE DIAGNOSIS: POSTOPERATIVE DIAGNOSIS: PROCEDURE PERFORMED: Bronchoscopy with BAL brushings and washings. ESTIMATED BLOOD LOSS: COMPLICATIONS: None. ANESTHESIA: LMA. The consent was obtained from the patient. ASSISTANTS: SPECIMENS: INDICATION: Pneumonitis and pneumonia. POSTOPERATIVE DIAGNOSES: Bronchitis, pneumonitis. INTERPRETATION: 1. Slightly abnormal asymmetrical vocal cords with sluggish right cord. 2. Evidence of bronchitis. 3. History of pneumonitis. KITCHEN STEWARD/STEWARDESS: None. DESCRIPTION OF PROCEDURE: After the patient adequately sedated and LMA in place, a flexible digital bronchoscope was inserted over the LMA to the level of the vocal cords. The vocal cords appeared to be a little asymmetrical with minimal movements due to anesthesia and also seem to be sluggish right vocal cord. After instilling lidocaine, the bronchoscope was then passed to the level of the trachea. Additional lidocaine was administered. The tracheobronchial tree was examined to the subsegmental level. No evidence of any endobronchial lesions or masses. The patient did have evidence of bronchitis with erythema of the mucosa. The patient had some minimal degree of bronchomalacia. There was some degree of mucoid secretions with some mucus plugs primarily on the left side. The bronchoscope was navigated to the right upper lobe where BAL was done with 50 mL of normal saline. The patient did have some bronchomalacia, so therefore, minimal return approximately 15 mL of fluid with some foamy material. No significant plugs. That was sent for cell count and also for microbiology. Bronchial washings were also collected throughout. These were sent for both Cytology and Microbiology. Brushings were also administered. The bronchoscope was then removed. The total endoscopic time approximately 12 minutes. The patient tolerated the procedure well. Vital signs were stable. MD CLAUDIA Garcia/HARMEET / [id number]
== END 2022-04-27 10:26 | disposition home or self-care (01) ==
PROVIDERS: PCP Internal Medicine Medical Oncology; Visit Provider Hospitalist
PROC: 0BJ08ZZ Inspection of Tracheobronchial Tree, Via Natural or Artificial Opening Endoscopic (ICD-10-PCS; CPT 31622; principal; 2022-04-27 09:30)
DX: J40 Bronchitis, not specified as acute or chronic (principal); J98.09 Other diseases of bronchus, not elsewhere classified; J38.3 Other diseases of vocal cords; C88.0 Waldenstrom macroglobulinemia; U09.9 Post COVID-19 condition, unspecified; R50.9 Fever, unspecified; Z87.891 Personal history of nicotine dependence
CPT/HCPCS: 31624; 31623; 36415; 82947; 87070; 87102; 87205; 87798; 88112; 88305; 89051; J0171; J1100; J2250; J2405; J3010

== ENCOUNTER 2022-05-17 11:25 | Outpatient (REF) | payer OTHER, SELFPAY | END 2022-05-17 11:26 | disposition home or self-care (01) | LOC: HO.MDS 11:25 | PROVIDERS: Visit Provider Hospitalist | DX: D80.1 Nonfamilial hypogammaglobulinemia (principal) | CPT/HCPCS: 96365; 96366 ==

== ENCOUNTER 2022-05-25 08:27 | Outpatient (REF) | payer OTHER, SELFPAY ==
[2022-05-25 08:49] LABS: MANUAL DIFF FLAG NO
[2022-05-25 09:16] LABS: Basophils Percent Auto 0.7 % (0-2); Hematocrit 43.8 % (42.0-52.0); Hemoglobin 13.4 g/dl (14.0-18.0); Imm Gran Pct Auto 5.4 % (0.0-0.4); Lymphocytes Absolute Auto 1.4 X10*3/uL (1.2-4.9); Lymphocytes Percent Auto 24.5 % (20-40); Mean Corpuscular HGB Conc 30.6 g/dl (31.0-36.0); Mean Corpuscular Hemoglobin 22.8 pg (27.0-33.0); Mean Corpuscular Volume 74.6 fL (80.0-98.0); Mean Platelet Volume 9.7 fL (9.4-12.4); Monocytes Absolute Auto 0.3 X10*3/uL (0.1-1.2); Monocytes Percent Auto 6.1 % (2-11); Neutrophils Absolute Auto 3.5 x10*3/uL (2.0-8.3); Neutrophils Percent Auto 63.3 % (45-73); Platelet Count 229 X10*3/uL (160-400); Red Blood Count 5.87 X10*6/uL (4.60-5.80); Red Cell Distribution Width 18.4 % (11.0-16.0); SCAN SMEAR FLAG 1; White Blood Count 5.5 X10*3/uL (4.8-10.8)
[2022-05-25 09:53] LABS: Alanine Aminotransferase 29 U/L (0-40); Albumin Level 3.9 g/dL (3.5-5.0); Alkaline Phosphatase 60 U/L (39-117); Anion Gap 14 (12-20); Aspartate Amino Transferase 30 U/L (5-37); Bilirubin Total 0.4 mg/dL (0.0-1.0); Blood Urea Nitrogen 11 mg/dL (9-16); Calcium 9.4 mg/dL (8.4-10.2); Carbon Dioxide 26 mmol/L (22-29); Chloride 107 mmol/L (96-108); Cholesterol 186 mg/dL; Estimated Glomerular Filt Rate > 60; Glucose Fasting 148 mg/dL (60-99); HDL Cholesterol 41 mg/dL; LDL Cholesterol Calculated 123 mg/dl; Lactate Dehydrogenase 364 U/L (118-273); Potassium 4.3 mmol/L (3.3-5.1); Sodium 143 mmol/L (135-145); Total Protein 6.9 g/dL (6.5-8.0); Triglycerides 114 mg/dL
[2022-05-26 14:37] LABS: Beta-2 Microglobulin, Serum 1.83 mg/L (< OR = 2.51)
[2022-05-26 21:04] LABS: PES - Abn Protein Band 1 0.4 g/dL (NONE DETECTED); Prot Elec - Albumin 3.8 g/dL (3.8-4.8); Prot Elec - Alpha1 0.4 g/dL (0.2-0.3); Prot Elec - Beta 1 0.4 g/dL (0.4-0.6); Prot Elec - Beta 2 0.3 g/dL (0.2-0.5); Prot Elec - Gamma 1.1 g/dL (0.8-1.7)
[2022-05-30 18:07] LABS: IgA 14 mg/dL (47-310); IgG 1083 mg/dL (600-1640); IgM 432 mg/dL (50-300)
== END 2022-05-25 08:28 | disposition home or self-care (01) ==
LOC: HO.LAB 08:27
PROVIDERS: Visit Provider Internal Medicine Medical Oncology
DX: D72.819 Decreased white blood cell count, unspecified (principal); C88.0 Waldenstrom macroglobulinemia; C70.9 Malignant neoplasm of meninges, unspecified; I25.10 Atherosclerotic heart disease of native coronary artery without angina pectoris; E11.9 Type 2 diabetes mellitus without complications
CPT/HCPCS: 36415; 80053; 80061; 82232; 82784; 83615; 84165; 85025; 86334

== ENCOUNTER 2022-06-14 09:08 | Outpatient (REF) | payer OTHER, SELFPAY | END 2022-06-14 09:09 | disposition home or self-care (01) | LOC: HO.MDS 09:08 | PROVIDERS: Visit Provider Hospitalist | DX: D80.1 Nonfamilial hypogammaglobulinemia (principal) | CPT/HCPCS: 96365; 96366; 96375 ==

== ENCOUNTER 2022-12-30 07:42 | Outpatient (REF) | payer OTHER, SELFPAY ==
[2022-12-30 08:05] LABS: MANUAL DIFF FLAG NO
[2022-12-30 08:35] LABS: Eosinophils Absolute Auto 0.1 X10*3/uL (0.0-0.4); Hematocrit 42.7 % (42.0-52.0); Hemoglobin 14.9 g/dl (14.0-18.0); Imm Gran Abs Auto 0.06 X10*3/uL (0.00-0.03); Lymphocytes Absolute Auto 1.1 X10*3/uL (1.2-4.9); Lymphocytes Percent Auto 34.7 % (20-40); Mean Corpuscular HGB Conc 34.9 g/dl (31.0-36.0); Mean Corpuscular Hemoglobin 26.4 pg (27.0-33.0); Mean Corpuscular Volume 75.7 fL (80.0-98.0); Mean Platelet Volume 10.1 fL (9.4-12.4); Monocytes Absolute Auto 0.2 X10*3/uL (0.1-1.2); Monocytes Percent Auto 6.3 % (2-11); Neutrophils Absolute Auto 1.6 x10*3/uL (2.0-8.3); Platelet Count 192 X10*3/uL (160-400); Red Blood Count 5.64 X10*6/uL (4.60-5.80); Red Cell Distribution Width 14.3 % (11.0-16.0)
[2022-12-30 08:39] LABS: Estimated Average Glucose 114 mg/dL; Hemoglobin A1c % 5.6 % (<6.0)
[2022-12-30 09:12] LABS: Alanine Aminotransferase 14 U/L (0-40); Albumin Level 4.2 g/dL (3.5-5.0); Alkaline Phosphatase 65 U/L (39-117); Anion Gap 12 (12-20); Aspartate Amino Transferase 21 U/L (5-37); Bilirubin Total 0.6 mg/dL (0.0-1.0); Blood Urea Nitrogen 11 mg/dL (9-16); Calcium 9.4 mg/dL (8.4-10.2); Carbon Dioxide 25 mmol/L (22-29); Chloride 108 mmol/L (96-108); Cholesterol 180 mg/dL (<200); Estimated Glomerular Filt Rate > 60; Glucose Fasting 134 mg/dL (60-99); HDL Cholesterol 34 mg/dL (>40); LDL Cholesterol Calculated 105 mg/dL (<100); Potassium 3.6 mmol/L (3.3-5.1); Sodium 141 mmol/L (135-145); Total Protein 6.6 g/dL (6.5-8.0); Triglycerides 207 mg/dL (<150)
[2022-12-30 09:27] LABS: Ferritin 231 ng/mL (20-250)
[2023-01-01 11:37] LABS: Beta-2 Microglobulin, Serum 1.83 mg/L (< OR = 2.51)
[2023-01-02 12:19] LABS: IgA 12 mg/dL (70-320); IgG 374 mg/dL (600-1540); IgM 351 mg/dL (50-300)
[2023-01-02 16:09] LABS: PES - Abn Protein Band 1 0.2 g/dL (NONE DETECTED); Prot Elec - Alpha1 0.3 g/dL (0.2-0.3); Prot Elec - Alpha2 0.6 g/dL (0.5-0.9); Prot Elec - Beta 1 0.5 g/dL (0.4-0.6); Prot Elec - Beta 2 0.3 g/dL (0.2-0.5); Prot Elec - Gamma 0.5 g/dL (0.8-1.7); Prot Elec - Total Protein 6.2 g/dL (6.1-8.1)
== END 2022-12-30 07:43 | disposition home or self-care (01) ==
LOC: HO.LAB 07:42
PROVIDERS: Visit Provider Internal Medicine Medical Oncology
DX: C83.00 Small cell B-cell lymphoma, unspecified site (principal); D72.819 Decreased white blood cell count, unspecified; E11.9 Type 2 diabetes mellitus without complications
CPT/HCPCS: 36415; 80053; 80061; 82232; 82728; 82784; 83036; 84165; 85025; 86334

== ENCOUNTER → 2023-01-11 07:25 | Outpatient (BNV) | payer OTHER, SELFPAY | PROVIDERS: PCP Internal Medicine Medical Oncology; Visit Provider Internal Medicine | DX: R06.09 Other forms of dyspnea (principal) | CPT/HCPCS: 94060; 94727; 94729 ==

== ENCOUNTER 2023-01-11 07:28 | Outpatient (REF) | payer OTHER, SELFPAY ==
--- NOTE | 2023-01-11 | PFT_ITS ---
Forced vital capacity is 68%, FEV1 80%, FEV1/FVC ratio is 89. [id number] 140%, MVV 67%. Post bronchodilator therapy, there is no improvement, rather there is some decrease in the flow volumes. Total lung capacity 61% and residual volume 89%. Diffusion capacity 77%. CONCLUSION: There is evidence of moderately severe restrictive pulmonary disorder. No obstructive airway disorder and no positive response to bronchodilator therapy. MD URBAN Campbell/HARMEET / [id number]
== END 2023-01-11 07:29 | disposition home or self-care (01) ==
LOC: HO.RESP 07:28
PROVIDERS: PCP Internal Medicine Medical Oncology; Visit Provider Internal Medicine Medical Oncology
DX: C83.00 Small cell B-cell lymphoma, unspecified site (principal); R06.02 Shortness of breath
CPT/HCPCS: 94010; 94727; 94729

== ENCOUNTER 2023-01-23 09:14 | Outpatient (REF) | payer OTHER, SELFPAY ==
--- NOTE | ~2023-01-23 | PE_ITS ---
EXAMINATION: Fluorine-18 FDG PET/CT Scan CLINICAL INDICATION: Subsequent treatment management. Lymphoplasmacytic lymphoma restaging. PROCEDURE: 64 minutes following the intravenous administration of 15.6 mCi of fluorine 18 FDG, images from the base of the skull to the mid thighs were obtained using a combined PET/CT scanner with CT scan based attenuation correction. No oral contrast was administered. No intravenous contrast was administered. Transverse, coronal, sagittal, and volume reconstruction projections were obtained. The patient's blood glucose as determined by a finger stick, was 107 mg/dl immediately prior to injection. Total CT exam dose-length product 655.23 mGy-cm * These CT images were obtained using dose optimization techniques as appropriate, variously including the following: Automated exposure control * Adjustment of mA and/or kV according to patient size (this includes techniques or standardized protocols for targeted exams where dose is matched to indication/reason for exam; i.e. extremities or head) * Use of iterative reconstruction technique COMPARISON: The previous PET CT scan dated 08/23/2017 is available for comparison. The diagnostic CT scan of the chest, abdomen, and pelvis, dated 03/02/2022, is available for comparison. FINDINGS: (Slice numbers described in this report are numbered superiorly to inferiorly with slice #1 in the head) NECK AND VISUALIZED HEAD: No foci of abnormal FDG activity are noted. The distribution of FDG activity is physiological. There is no cervical lymphadenopathy. A stable appearing left hypodense thyroid nodule is again visualized measuring 2.1 x 1.6 cm in largest transverse dimensions and continuing to show no abnormal FDG activity (this is actually FDG photopenic) and additional hypodense subcentimeter nodule in the upper pole of the right lobe is visualized, but is less well delineated than on prior studies and also shows no abnormal FDG activity but this is too small to be well characterized on the FDG images. Right maxillary sinus mucosal thickening visualized on the prior 08/23/2017 PET/CT scan is no longer present. THORAX: There are no foci of abnormal FDG activity in the chest. There is a 0.4 cm calcified granuloma posterolaterally in the superior segment of the left lower lobe, slice 82/267, unchanged in appearance from prior studies and much too small to be characterized on the FDG PET images. No other pulmonary nodules are visualized. Groundglass opacities in the right middle lobe visualized on the 03/02/[address] scan are no longer present. There is no pleural or pericardial fluid, or pneumothorax. There is no mediastinal, supraclavicular, or axillary lymphadenopathy. ABDOMEN AND PELVIS: There are no foci of abnormal FDG activity in the abdomen or pelvis. Mild FDG activity throughout the gastrointestinal tract is noted without a suspicious focal component, likely physiological. There is diverticulosis without evidence of diverticulitis. The hollow viscera are otherwise unremarkable. The liver is unremarkable. A subcentimeter hypodensity visualized on the IV contrast enhanced diagnostic 03/02/2022 CT scan is not visualized on these nondiagnostic CT images. This focus is too small to be characterized on the FDG PET images. Gallbladder calculi are present unchanged in appearance from 03/02/2022 but these were not present on the less recent 08/23/2017 PET/CT scan. The gallbladder is otherwise unremarkable. The spleen is unremarkable. Splenomegaly and diffusely increased FDG activity in the spleen noted on the 08/23/2017 PET/CT scan are no longer present. The kidneys, adrenal glands, and pancreas are unremarkable. The pelvic organs are unremarkable. There is no retroperitoneal, mesenteric, pelvic or inguinal lymphadenopathy. Small bilateral fat-containing inguinal hernias are noted. MUSCULOSKELETAL: There are no foci of abnormal FDG activity in the osseous structures. Diffuse FDG activity in the visualized osseous structures present on the 08/23/2017 PET/CT scan is no longer present. There are degenerative changes in the spine, most prominently in the mid and lower thoracic spine. No suspicious sclerotic or lytic lesions are visualized. VASCULAR: Vascular calcifications including coronary are noted. PET/PET CT fusion skull to thigh IMPRESSION: 1. No abnormalities suspicious for metastatic or recurrent malignancy are noted. Using the 5 point Deauville scale, this patient would be classified as a Deauville score of 1. 2. A stable hypodense left thyroid nodule is again noted and shows no abnormal FDG activity and is likely benign. A subcentimeter right thyroid nodule also appears stable. 3. Cholelithiasis. 4. Vascular calcifications including coronary. Reference: Deauville Score: Score 1: No uptake above the background Score 2: Uptake not greater than mediastinum Score 3: Uptake greater than mediastinum but less than liver Score 4: Uptake moderately increased compared to the liver Score 5: Uptake markedly increased compared to the liver or any new lesion Score X: Foci of uptake unlikely to be related to lymphoma
== END 2023-01-23 09:15 | disposition home or self-care (01) ==
LOC: HO.PET 09:14
PROVIDERS: PCP Internal Medicine Medical Oncology; Visit Provider Internal Medicine Medical Oncology
DX: Z13.89 Encounter for screening for other disorder (principal)

== ENCOUNTER 2023-03-10 07:43 | Outpatient (REF) | payer OTHER, SELFPAY ==
[2023-03-10 08:02] LABS: MANUAL DIFF FLAG NO
[2023-03-10 08:50] LABS: Basophils Percent Auto 0.3 % (0-2); Eosinophils Absolute Auto 0.1 X10*3/uL (0.0-0.4); Eosinophils Percent Auto 1.7 % (0-4); Hematocrit 41.7 % (42.0-52.0); Hemoglobin 14.5 g/dl (14.0-18.0); Imm Gran Abs Auto 0.03 X10*3/uL (0.00-0.03); Imm Gran Pct Auto 0.5 % (0.0-0.4); Lymphocytes Absolute Auto 1.1 X10*3/uL (1.2-4.9); Lymphocytes Percent Auto 16.6 % (20-40); Mean Corpuscular HGB Conc 34.8 g/dl (31.0-36.0); Mean Corpuscular Volume 77.7 fL (80.0-98.0); Mean Platelet Volume 9.9 fL (9.4-12.4); Monocytes Absolute Auto 0.4 X10*3/uL (0.1-1.2); Monocytes Percent Auto 6.1 % (2-11); Neutrophils Absolute Auto 4.9 x10*3/uL (2.0-8.3); Neutrophils Percent Auto 74.8 % (45-73); Platelet Count 157 X10*3/uL (160-400); Red Blood Count 5.37 X10*6/uL (4.60-5.80); Red Cell Distribution Width 14.7 % (11.0-16.0); White Blood Count 6.6 X10*3/uL (4.8-10.8)
[2023-03-10 09:19] LABS: Alanine Aminotransferase 16 U/L (0-40); Albumin Level 3.9 g/dL (3.5-5.0); Alkaline Phosphatase 58 U/L (39-117); Anion Gap 13 (12-20); Aspartate Amino Transferase 15 U/L (5-37); Bilirubin Total 0.6 mg/dL (0.0-1.0); Blood Urea Nitrogen 8 mg/dL (9-16); Calcium 9.2 mg/dL (8.4-10.2); Carbon Dioxide 26 mmol/L (22-29); Chloride 106 mmol/L (96-108); Cholesterol 171 mg/dL (<200); Estimated Glomerular Filt Rate > 60; Glucose Fasting 123 mg/dL (60-99); HDL Cholesterol 33 mg/dL (>40); LDL Cholesterol Calculated 108 mg/dL (<100); Potassium 3.7 mmol/L (3.3-5.1); Sodium 141 mmol/L (135-145); Total Protein 6.4 g/dL (6.5-8.0); Triglycerides 150 mg/dL (<150)
[2023-03-12 23:24] LABS: PES - Abn Protein Band 1 0.3 g/dL (NONE DETECTED); Prot Elec - Albumin 3.7 g/dL (3.8-4.8); Prot Elec - Alpha1 0.4 g/dL (0.2-0.3); Prot Elec - Alpha2 0.7 g/dL (0.5-0.9); Prot Elec - Beta 1 0.4 g/dL (0.4-0.6); Prot Elec - Beta 2 0.3 g/dL (0.2-0.5); Prot Elec - Gamma 0.5 g/dL (0.8-1.7)
[2023-03-13 12:38] LABS: IgA 14 mg/dL (70-320); IgG 335 mg/dL (600-1540); IgM 328 mg/dL (50-300)
== END 2023-03-10 07:44 | disposition home or self-care (01) ==
LOC: HO.LAB 07:43
PROVIDERS: Visit Provider Internal Medicine Medical Oncology
DX: C83.00 Small cell B-cell lymphoma, unspecified site (principal); D72.819 Decreased white blood cell count, unspecified; E78.5 Hyperlipidemia, unspecified
CPT/HCPCS: 36415; 80053; 80061; 82784; 84165; 84550; 85025; 86334

== ENCOUNTER 2023-05-26 07:25 | Outpatient (REF) | payer OTHER, SELFPAY ==
[2023-05-26 07:41] LABS: MANUAL DIFF FLAG NO
[2023-05-26 07:49] LABS: Basophils Percent Auto 0.3 % (0-2); Eosinophils Absolute Auto 0.1 X10*3/uL (0.0-0.4); Eosinophils Percent Auto 1.9 % (0-4); Hematocrit 42.8 % (42.0-52.0); Hemoglobin 14.7 g/dl (14.0-18.0); Imm Gran Abs Auto 0.05 X10*3/uL (0.00-0.03); Imm Gran Pct Auto 0.8 % (0.0-0.4); Lymphocytes Absolute Auto 1.4 X10*3/uL (1.2-4.9); Lymphocytes Percent Auto 22.3 % (20-40); Mean Corpuscular HGB Conc 34.3 g/dl (31.0-36.0); Mean Corpuscular Hemoglobin 27.7 pg (27.0-33.0); Mean Corpuscular Volume 80.8 fL (80.0-98.0); Mean Platelet Volume 9.5 fL (9.4-12.4); Monocytes Absolute Auto 0.5 X10*3/uL (0.1-1.2); Monocytes Percent Auto 7.9 % (2-11); Neutrophils Absolute Auto 4.2 x10*3/uL (2.0-8.3); Neutrophils Percent Auto 66.8 % (45-73); Platelet Count 183 X10*3/uL (160-400); Red Cell Distribution Width 14.1 % (11.0-16.0); White Blood Count 6.3 X10*3/uL (4.8-10.8)
[2023-05-26 07:57] LABS: Estimated Average Glucose 117 mg/dL; Hemoglobin A1c % 5.7 % (<6.0)
[2023-05-26 08:22] LABS: Alanine Aminotransferase 18 U/L (0-40); Albumin Level 4.1 g/dL (3.5-5.0); Alkaline Phosphatase 68 U/L (39-117); Anion Gap 13 (12-20); Aspartate Amino Transferase 15 U/L (5-37); Bilirubin Total 0.6 mg/dL (0.0-1.0); Blood Urea Nitrogen 12 mg/dL (9-16); Calcium 9.5 mg/dL (8.4-10.2); Carbon Dioxide 28 mmol/L (22-29); Chloride 108 mmol/L (96-108); Cholesterol 188 mg/dL (<200); Estimated Glomerular Filt Rate > 60; Glucose Fasting 119 mg/dL (60-99); HDL Cholesterol 35 mg/dL (>40); LDL Cholesterol Calculated 125 mg/dL (<100); Potassium 4.7 mmol/L (3.3-5.1); Sodium 144 mmol/L (135-145); Total Protein 6.5 g/dL (6.5-8.0); Triglycerides 144 mg/dL (<150)
[2023-05-26 09:04] LABS: Creatinine Urine 176.53 mg/dL; Microalbum/Creatinine Ratio Ur 28.8 ug/mg cr (<30)
[2023-05-28 12:48] LABS: PES - Abn Protein Band 1 0.2 g/dL (NONE DETECTED); Prot Elec - Albumin 3.9 g/dL (3.8-4.8); Prot Elec - Alpha1 0.3 g/dL (0.2-0.3); Prot Elec - Alpha2 0.6 g/dL (0.5-0.9); Prot Elec - Beta 1 0.5 g/dL (0.4-0.6); Prot Elec - Beta 2 0.3 g/dL (0.2-0.5); Prot Elec - Gamma 0.5 g/dL (0.8-1.7)
[2023-05-28 22:24] LABS: Beta-2 Microglobulin, Serum 2.23 mg/L (< OR = 2.51)
== END 2023-05-26 07:26 | disposition home or self-care (01) ==
LOC: HO.LAB 07:25
PROVIDERS: Visit Provider Internal Medicine Medical Oncology
DX: C83.00 Small cell B-cell lymphoma, unspecified site (principal); E11.9 Type 2 diabetes mellitus without complications; E66.3 Overweight
CPT/HCPCS: 36415; 80053; 80061; 82043; 82232; 82570; 83036; 84165; 85025

== ENCOUNTER 2023-06-22 15:41 | Outpatient (AMB) | payer OTHER, SELFPAY ==
[2023-06-22 15:50] VITALS: BP 142/82; PULSE 68; O2SAT 99; BMI 27.6
--- NOTE | 2023-06-22 15:50 | A.OFFVIS_ITS ---
Intake Vital Signs 06/22/23 15:50 Height 5 ft 6 in Weight 170 lb 13.732 oz BMI 27.6 BP 142/82 H Blood Pressure Location Lt brachial Position Sitting Pulse 68 Pulse Source Pulse Oximeter Pulse Oximetry (%) 99 Oxygen Delivery Method Room Air Intake Visit Reasons: Shortness of breath Intake Note: pt is here for follow up and states little short of breath when climbing stairs. Precision Filer Hand Required: No Allergies No Known Allergies [No Known Allergies*] Allergy (Verified 06/22/23 15:53) HPI HPI Comments History of Present Illness Details The patient is a 61-year-old gentleman with background history of Waldenstrom macroglobulinemia and malignant lymphoplasmacytic lymphoma presenting with on going fevers and an abnormal CT chest. Apparently the patient was in usual state health until early fall and developed COVID-19. The patient was sick with cough during that time. He did recover in the hospitalization. Subsequently after that he has had ongoing fevers. Also been having some night sweats. He a also has some weight loss partly related to the GI symptoms related to the COVID-19. Although his appetite continues to be affected. She did undergo a recent CT scan of the chest that was personally by me in the office with the patient. He does have bilateral areas of ground-glass opacities primarily in the right lower lobe area were coalesces more. Appears to be in a bronchovascular distribution. During the same period of time the patient was placed on a course of levofloxacin which she completed. He also developed doubt of his left foot and was started on a prednisone course. Respiratory chang patient is doing well. He does have a nonproductive cough intermittently. Mild in severity. Denies any congestion denies any pleuritic chest discomfort. He denies any shortness of breath. She was evaluated by Infectious Disease in a fungal evaluation was started specially with his history of blood dyscrasias and likely some component of immunodeficiency. During the office visit we did go for brief walking oximetry and pulse ox was within normal limits throughout the ambulation. At this point based on the fact the patient is doing relatively well will go ahead and start him on a 2nd course of antibiotics to treat for postviral bacterial infections in the will reassess with repeat chest x-ray. If the patient is no better or if she continues to have fevers will go ahead and perform a bronchoscopy. But at this point based on the patient's presentation it is reasonable to request additional blood work and requesting repeat chest x-ray prior to bronchoscopy. 04/12/2022 the patient is here for pulmon rob follow-up visit. He completed the antibiotics. His fevers did improved. He still getting low-grade fevers. We did review his blood work demonstrating critically low IgG levels. The patient also had significant bandemia suggesting of infection. He did have a repeat chest x-ray still demonstrating some haziness. At this point the patient is at risk for immuno compromising conditions specially with the immunodeficiency and the chemotherapy medications including the Rituxan. Patient will still require bronchoscopy. However, in the meantime will start the process to get him on IVIG in view of his critical levels. He needs to be on IVIG before his next Rituxan dose. I am also hopeful that once he gets his IVIG he can get his COVID booster and also other vaccines necessary. The patient does not have any evidence of any antibodies against COVID even after having COVID relatively recently. 06/22/2023 the patient is here for a pulmonary follow-up visit. Overall the patient has been doing very well. He initially has started the IVIG therapy which was very effective for him. Subsequently he started having issues with high blood pressure and at some point. The infusions. Clinically he has been feeling better. Most likely the effects of the rituximab have decrease in therefore his B lymphocytes have been able to replenish. Will go ahead and recheck his levels. I am hoping that his immunoglobulins are stable. If not if they are still low then will talk about considering restarting infusions. In the meantime the patient has been noticing a cough. The cough is been intermittent. Kujf-wi-xytjiswn severity. Is typically hacky cough. On examination he does have some expiratory wheezing. Likely postviral reactive airway disease. Will go ahead and start him on a rescue inhaler this time. [facility] Medical History (Updated 06/25/23 @ 23:02 by Sam Mcbride MD) Cough Hypogammaglobulinemia Pneumonitis Pneumonia Waldenstrom macroglobulinemia Social History Alcohol intake: current Alcohol intake frequency: does not drink Patient Tobacco Use Status: Former Tobacco user Tobacco use type: Cigarette Years Smoked: 10+ Years Review of Systems Const Denies fatigue, Denies fever(s) and Denies weight loss Eyes Denies change in vision ENT Reports no additional complaints Card Denies chest pain, Denies dyspnea and Denies dyspnea on exertion Resp Denies chest congestion, Reports cough, Denies hemoptysis, Denies dyspnea and Denies dyspnea on exertion GI Denies abdominal pain Musc Reports no additional complaints Skin/Breast Denies rash Neuro Reports no additional complaints Endo Denies fatigue Sarbjit/Lymph Denies easy bleeding and Denies easy bruising Physical Exam Vital Signs: Last Vital Signs Pulse 68 06/22/23 15:50 BP 142/82 H 06/22/23 15:50 Pulse Ox 99 06/22/23 15:50 Oxygen Delivery Method Room Air 06/22/23 15:50 BMI result Body Mass Index 27.6 Const General: healthy appearing and comfortable HEENT Head: Yes atraumatic Neck Neck: Yes no lymphadenopathy, Yes trachea midline and Yes supple Chest Chest palpation & inspection: normal inspection of the chest Resp Effort & Inspection: normal respiratory effort Auscultation: clear to auscultation bilaterally and wheezes Cardio Rate: regular rate Rhythm: regular rhythm Heart sounds: S1 normal heart sound present and S2 normal heart sound present GI Auscultation: normal bowel sounds Extrem General: Yes no clubbing, cyanosis or edema Assessment & Plan Assessment & Plan (1) Hypogammaglobulinemia: Code(s): D80.1 - Nonfamilial hypogammaglobulinemia (2) Waldenstrom macroglobulinemia: Code(s): C88.0 - Waldenstrom macroglobulinemia (3) Cough: Comment: with wheezing Code(s): R05.9 - Cough, unspecified Qualifiers: Cough type: chronic Qualified Code(s): R05.3 - Chronic cough Plan bloodwork TG as needed F/U 12 months Orders: Orders Immunoglobulin G Subclasses 06/22/23 D80.1 - Nonfamilial hypogammaglobulinemia Immunoglobulins,IgG IgA IgM 06/22/23 D80.1 - Nonfamilial hypogammaglobulinemia Coding Level of Care Code Est Pt Level 4 (77560) Diagnoses Hypogammaglobulinemia D80.1 Waldenstrom macroglobulinemia C88.0 Chronic cough R05.3 Cough type: chronic Time Spent (min) 17
== END 2023-06-22 16:21 | disposition home or self-care (01) ==
PROVIDERS: PCP Internal Medicine Medical Oncology; Visit Provider Hospitalist
DX: D80.1 Nonfamilial hypogammaglobulinemia (principal); C88.0 Waldenstrom macroglobulinemia; R05.3 Chronic cough
CPT/HCPCS: 99214

== ENCOUNTER → 2023-06-22 15:41 | Outpatient (BNVA) | payer OTHER, SELFPAY | PROVIDERS: PCP Internal Medicine Medical Oncology; Visit Provider Hospitalist ==

== ENCOUNTER 2023-09-12 06:58 | Outpatient (REF) | payer OTHER, SELFPAY ==
[2023-09-12 07:10] LABS: MANUAL DIFF FLAG NO
[2023-09-12 08:02] LABS: Basophils Percent Auto 0.3 % (0-2); Eosinophils Absolute Auto 0.1 X10*3/uL (0.0-0.4); Eosinophils Percent Auto 1.9 % (0-4); Hemoglobin 14.1 g/dl (14.0-18.0); Imm Gran Abs Auto 0.05 X10*3/uL (0.00-0.03); Imm Gran Pct Auto 0.8 % (0.0-0.4); Lymphocytes Absolute Auto 1.4 X10*3/uL (1.2-4.9); Lymphocytes Percent Auto 23.4 % (20-40); Mean Corpuscular HGB Conc 35.3 g/dl (31.0-36.0); Mean Corpuscular Hemoglobin 28.3 pg (27.0-33.0); Mean Corpuscular Volume 80.2 fL (80.0-98.0); Mean Platelet Volume 10.8 fL (9.4-12.4); Monocytes Absolute Auto 0.4 X10*3/uL (0.1-1.2); Monocytes Percent Auto 7.1 % (2-11); Neutrophils Absolute Auto 3.9 x10*3/uL (2.0-8.3); Neutrophils Percent Auto 66.5 % (45-73); Platelet Count 172 X10*3/uL (160-400); Red Blood Count 4.99 X10*6/uL (4.60-5.80); White Blood Count 5.9 X10*3/uL (4.8-10.8)
[2023-09-12 08:19] LABS: Estimated Average Glucose 131 mg/dL; Hemoglobin A1c % 6.2 % (<6.0)
[2023-09-12 08:36] LABS: Alanine Aminotransferase 17 U/L (0-40); Albumin Level 3.8 g/dL (3.5-5.0); Alkaline Phosphatase 64 U/L (39-117); Anion Gap 12 (12-20); Aspartate Amino Transferase 14 U/L (5-37); Bilirubin Total 0.6 mg/dL (0.0-1.0); Blood Urea Nitrogen 8 mg/dL (9-16); Calcium 9.1 mg/dL (8.4-10.2); Carbon Dioxide 25 mmol/L (22-29); Chloride 108 mmol/L (96-108); Cholesterol 181 mg/dL (<200); Estimated Glomerular Filt Rate > 60; Glucose Fasting 131 mg/dL (60-99); HDL Cholesterol 37 mg/dL (>40); LDL Cholesterol Calculated 112 mg/dL (<100); Potassium 4.1 mmol/L (3.3-5.1); Sodium 141 mmol/L (135-145); Total Protein 6.1 g/dL (6.5-8.0); Triglycerides 162 mg/dL (<150)
[2023-09-12 08:49] LABS: Prostate Specific Antigen 1.07 ng/mL (<0.05-4.0)
[2023-09-13 12:54] LABS: PES - Abn Protein Band 1 0.2 g/dL (NONE DETECTED); Prot Elec - Albumin 3.8 g/dL (3.8-4.8); Prot Elec - Alpha1 0.3 g/dL (0.2-0.3); Prot Elec - Alpha2 0.5 g/dL (0.5-0.9); Prot Elec - Beta 1 0.5 g/dL (0.4-0.6); Prot Elec - Beta 2 0.2 g/dL (0.2-0.5); Prot Elec - Gamma 0.5 g/dL (0.8-1.7); Prot Elec - Total Protein 5.8 g/dL (6.1-8.1)
[2023-09-13 14:13] LABS: Beta-2 Microglobulin, Serum 1.93 mg/L (< OR = 2.51)
[2023-09-15 22:28] LABS: Viscosity 1.5 rel to H2O (1.5-1.9)
[2023-09-17 17:29] LABS: IgA 15 mg/dL (70-320); IgG 304 mg/dL (600-1540); IgM 326 mg/dL (50-300)
== END 2023-09-12 06:59 | disposition home or self-care (01) ==
LOC: HO.LAB 06:58
PROVIDERS: Visit Provider Internal Medicine Medical Oncology
DX: Z12.5 Encounter for screening for malignant neoplasm of prostate (principal); C83.00 Small cell B-cell lymphoma, unspecified site; I10 Essential (primary) hypertension; E11.9 Type 2 diabetes mellitus without complications; D72.819 Decreased white blood cell count, unspecified; N40.0 Benign prostatic hyperplasia without lower urinary tract symptoms
CPT/HCPCS: 36415; 80053; 80061; 82232; 82784; 83036; 84153; 84165; 85025; 85810; 86334

== ENCOUNTER 2023-09-22 09:48 | Outpatient (REF) | payer OTHER, SELFPAY ==
--- NOTE | ~2023-09-22 | XR_ITS ---
EXAMINATION: XR CHEST CLINICAL INFORMATION: Lymphoma, patient says to check his chest COMPARISON: PET/CT 01/23/2023. Chest radiographs 04/06/2022. TECHNIQUE: 2 views of the chest were obtained. FINDINGS: There is no gross pneumothorax. Heart size is normal. No pleural effusion. No focal consolidation to suggest pneumonia. Mild degenerative changes in the thoracic spine. XR/XR chest 2V IMPRESSION: No evidence of pneumonia.
[2023-09-25 17:28] LABS: Immunoglobulin G Subclass 1 172 mg/dL (382-929); Immunoglobulin G Subclass 2 89 mg/dL (241-700); Immunoglobulin G Subclass 3 15 mg/dL (22-178); Immunoglobulin G Subclass 4 12.6 mg/dL (4-86); Immunoglobulin G Total 291 mg/dL (600-1540)
[2023-09-26 18:13] LABS: IgA 11 mg/dL (70-320); IgG 308 mg/dL (600-1540); IgM 345 mg/dL (50-300)
== END 2023-09-22 09:49 | disposition home or self-care (01) ==
LOC: HO.XRAY 09:48
PROVIDERS: Absent Provider Hospitalist; Visit Provider Internal Medicine Medical Oncology
DX: D80.1 Nonfamilial hypogammaglobulinemia (principal); C83.00 Small cell B-cell lymphoma, unspecified site; R50.9 Fever, unspecified
CPT/HCPCS: 36415; 71046; 82784

== ENCOUNTER 2024-05-08 10:16 | Outpatient (REF) | payer OTHER, SELFPAY ==
--- NOTE | ~2024-05-08 | XR_ITS ---
CLINICAL HISTORY: MALIGNANT LYMPHOPLASMACTIC LYMPHOMA,ACUTE COUGH 2 view chest x-ray. Comparison: CR/SR - XR CHEST 2V - 09/22/23 10:16 EDT CR/SR - XR CHEST 2V - 04/06/22 15:04 EST Findings: Normal lung volumes. Lungs are clear. No pneumothorax or pleural effusion. Heart size normal. No passive venous congestion. No midline shift or tracheal deviation. No acute fracture. Impression: 1. No acute cardiopulmonary disease. This document has been electronically signed by: Ktoa Dalton MD on 05/08/2024 11:37:42
--- OUTSIDE RECORDS SUMMARY | 2024-05-08 10:35 | XMS_ITS ---
Author Organization Humza Munroe III, MD Address [address] [place] [address] [place] [address] Care Team Providers Care Speech Language Pathologist Assistant Name Role Phone Humza Munroe Primary Care Provider REASON FOR VISIT Needs call back from Social History Sex Assigned At : Social History Observation Description Sex Assigned At Male Encounters Encounter Location Date Provider Diagnosis Humza Munroe III, MD [address] [place] [address] [place] [address] 05/05/2024 Humza Munroe Plan Of Treatment Next Appt Details Provider Name:Humza Munroe, 05/20/2024 02:30:00 PM, [address] [place] [address] [place], [address], Progress Notes * Kyleigh FORMANbaronDOB:1960 (63 yo M)Acc No.[id number]:05/05/2024 Patient:?Ranjan FORMAN :1960???Age:63 Y???Sex:Male Address:[address] [place] [address], [address] * true * Date:? Generated for Chilang[place] wendi/Jc/eTransmitting on:?05/08/2024 10:34 AM EST
--- OUTSIDE RECORDS SUMMARY | 2024-05-08 10:35 | XMS_ITS ---
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 Social History Sex Assigned At : Social History Observation Description Sex Assigned At Male Encounters Encounter Location Date Provider Diagnosis Humza Munroe III, MD [address] [place] [address] [address] [place] [facility] [place] [address] 10/11/2023 Humza Munroe Plan Of Treatment Next Appt Details Provider Name:Humza Munroe, 05/20/2024 02:30:00 PM, [address] [place] [address] [place], [address], Progress Notes * Kyleigh FORMANbaronDOB:1960 (63 yo M)Acc No.[id number]:10/11/2023 Patient:?Ranjan Forman :1960???Age:63 Y???Sex:Male Address:[address] [place] [address], [address] * true * Date:? Generated for Chilang[place] wendi/Jc/eTransmitting on:?05/08/2024 10:34 AM EST
--- OUTSIDE RECORDS SUMMARY | 2024-05-08 10:35 | XMS_ITS ---
Author Organization Humza Munroe III, MD Address [address] [place] [address] Care Team Providers Care Wool Supplier Name Role Phone Humza Munroe Primary Care Provider Allergies Allergen (clinical drug ingredient) Drug/Non Drug Allergy documented on EMR Reaction Allergy Type Onset Date Status No Known Drug Allergy Unknown Drug Allergy Active REASON FOR VISIT Phlegm, Severe coughing, Fever, Headaches, Unable to sleep due to the cough x 2 weeks, white sputum Medications Medication SIG (Take, Route, Fr equency, Duration) Notes Start Date End Date Status Allopurinol 100 MG TAKE 1 TABLET BY STEVEN TH EVERY DAY FOR 30 DAYS Active Valsartan 160 MG TAKE 1 TABLET BY STEVEN TH EVERY DAY FOR 30 DAYS Active Imbruvica 280 MG 1 tablet Oral Once a day Active Social History Tobacco Use: Social History Observation Description Date Details (start date - stop date) Former Smoker NA - NA Sex Assigned At : Social History Observation Description Sex Assigned At Male Tobacco Use/Smoking Question Answer Notes Patient is a former smoker How long has it been since you last smoked? 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 The IgM level has decreased. The abnormal protein level on electrophoresis has remained stable. His beta-2 microglobulin is normal. Observation will continue. He will continue on ibrutinib. 05/08/2024 Former smoker (ICD-1 0 - Z87.891) 05/08/2024 Acute cough (ICD-10 - R05.1) 05/08/2024 Type 2 diabetes mellitus without complication, unspecified whether director long term care insulin use (ICD-10 - E11.9) Plan Of Treatment Medication Medication Name Sig Start Date Stop Date Notes Allopurinol 100 MG TAKE 1 TABLET BY STEVEN TH EVERY DAY FOR 30 DAYS Valsartan 160 MG TAKE 1 TABLET BY STEVEN TH EVERY DAY FOR 30 DAYS Imbruvica 280 MG 1 tablet Oral Once a day Pending Test Test Name Order Date PROFILE, FASTING (COMPREHENSIVE METABOLI C) 05/08/2024 LDH 05/08/2024 CBC w DIFF 05/08/2024 SED RATE (ESR) 05/08/2024 IMMUNOFIXATION PANEL, SERUM (IEP) 2024 PROTEIN ELECTROPHORESIS, SERUM XR CHEST 2 VIEW PA & LAT 05/08/2024 Lipid Panel 05/08/2024 Beta-2 Microglobulin, Serum 05/08/2024 Microalbumin, Random 05/08/2024 T Spot TB 05/08/2024 Hemoglobin A1c 05/08/2024 Sputum Culture 05/08/2024 Next Appt Details Follow Up: 10-14 days, Reaso n: OV review labs and cxr done at Provider Name:Humza Munroe, 05/20/2024 02:30:00 PM, [address] [place] [address] JULY MÉNDEZ, YEIMI, [place], [address], Progress Notes * Juliet FORMAN:1960 (63 yo M)Acc No.[id number]:05/08/2024 Progress Notes Patient:Ranjan MARION Provider:?Humza Munroe MD :1960???Age:63 Y???Sex:Male Rick e:05/08/2024 Address:[address] [place] [address] Subjective: * Chief Complaints: * ???1. Phlegm, Severe coughin g, Fever, Headaches, Unable to sleep due to the cough x 2 weeks, white sputum. * HPI: ???COVID-19 Screening:?Questions?Have you had any new onset fever, chills, cough, congestion, sore throat, shortness of breath, muscle aches??Yes Chills, Muscle Aches, Cough, SOB, Sore Throat, Fever * ROS:?General/Constitutional:?pain?only normal aches and pains.?Chills?denies.?Fatigue?admits.?Fever?denies.?ENT:?Decreased hearing?denies.?Respiratory:?Cough?worse at night.?Cardiovascular:?Chest pain with exertion?denies.?Dyspnea on exertion?denies.?Shortness of breath?denies.?Gastrointestinal:?Constipation?denies.?Decreased appetite?denies.?Diarrhea?denies.?Heartburn?denies.?Nausea?denies.?Rectal bleeding?denies.?Vomiting?denies.?Hematology:?bruising?denies.?petechiae?denies.?Swollen glands?none have been noted.?Genitourinary:?Frequent urination?once a night.?Musculoskeletal:?Muscle aches?denies.?Painful joints?denies.?Sciatica?denies.?Weakness?denies.?Skin:?Itching?denies.?Rash?denies.?Skin lesion(s)?denies.?Neurologic:?Difficulty speaking?denies.?Dizziness?denies.?Headache?denies.?Low back pain?denies.?Psychiatric:?Depressed mood?denies.? * Medical History:?Iron defici ency, low B12, monoclonal IgM-k, Splenomegaly, Gerd, Gout, Lymphoplasmacytic lymphoma, Waldenstrohms macroglobulinemia, hyperviscosity syndrome. * Surgical History:?bone marro w biopsy 08/2017. * Hospitalization/Major Diagno stic Procedure:?Denies Past Hospitalization. * Family History:?Father: dece ased 71 yrs, Stroke.?Mother: 53 yrs, itp, complications of cholecystectomy.?1 brother(s) , 1 sister(s) - healthy. 1 son(s) . .? There is no history of bone marrow disorders, transfusion requirements, coagulopathy or thrombophilia. * Social History:?Tobacco Use:?Tobacco Use/Smoking?Patient is a?former smoker ?How long has it been since you last smoked??5-10 years ?Additional Findings: Tobacco Non-User?Ex-cigarette smoker ???He has been to [facility] for 31 years. He was born near [facility]. He is employed and has one healthy son. * Medications:?Taking Valsarta n 160 MG Tablet TAKE 1 TABLET BY MOUTH EVERY DAY FOR 30 DAYS , Taking Allopurinol 100 MG Tablet TAKE 1 TABLET BY MOUTH EVERY DAY FOR 30 DAYS , Taking Imbruvica 280 MG Tablet 1 tablet Oral Once a day , Medication List reviewed and reconciled with the patient * Allergies:?No Known Drug All ergy. Objective: * Vitals:?Ht: 66, Wt: 170, BMI :27.44, HR: 70, Temp: 99.7, Wt-k.11. * Examination: ???General Examination: ?GENERAL APPEARANCE:?pleasant, well nourished, well developed, in no acute distress, calm and relaxed.?HEAD:?atraumatic, normocephalic.?EYES:?eomi, perrla, anicteric, conjugate.?EARS:?normal.?NOSE:?septum intact.?ORAL CAVITY:?normal, unremarkable.?NECK/THYROID:?no jugular venous distention, no carotid bruit, thyroid normal.?LYMPH NODES:?no enlarged lymph nodes,spleen normal.?SKIN:?no suspicious lesions, anicteric.?HEART:?no clicks, gallops, murmurs, or rubs, regular rhythm, S1, S2 normal, no s3, or vascular bruits.?LUNGS:?clear to auscultation .?BREASTS:??no masses palpable bilaterally.?ABDOMEN:?bowel sounds normal, no ascites, no organomegaly, no mass.?RECTAL EXAM:?not examined.?MUSCULOSKELETAL:?extremities unremarkable, no clubbing, cyanosis or edema.?PERIPHERAL PULSES:?normal.?NEUROLOGIC:?alert and oriented, cranial nerves 2-12 grossly intact, deep tendon reflexes 2+ symmetrical, motor strength normal upper and lower extremities, sensory exam intact.?PSYCH:?alert, oriented.? Assessment: * Assessment: 1.?Malignant lymphoplasmacyt ic lymphoma - C83.00???Notes :There is no sign of disease recurrence or progression today. The IgM level has decreased. The abnormal protein level on electrophoresis has remained stable. His beta-2 microglobulin is normal. Observation will continue. He will continue on ibrutinib.???2.?Former smoker - Z87.891???3.?Acute cough - R05.1???4.?Type 2 diabetes mellitus without complication, unspecified whether director long term care insulin use - E11.9??? Plan: * Treatment: 2.?Former smoker?LAB: PROFILE, FASTING (COMPREHENSIVE METABOLIC) ?LAB: LDH ?LAB: CBC w DIFF ?LAB: SED RATE (ESR) ?LAB: IMMUNOFIXATION PANEL, SERUM (IEP) ?LAB: PROTEIN ELECTROPHORESIS, SERUM ?LAB: Lipid Panel ?LAB: Beta-2 Microglobulin, Serum ?LAB: Microalbumin, Random ?LAB: T Spot TB ?LAB: Hemoglobin A1c ?LAB: Sputum Culture ?Imaging: XR CHEST 2 VIEW PA & LAT 3.?Acute cough?LAB: PROFILE, FASTING (COMPREHENSIVE METABOLIC) ?LAB: LDH ?LAB: CBC w DIFF ?LAB: SED RATE (ESR) ?LAB: IMMUNOFIXATION PANEL, SERUM (IEP) ?LAB: PROTEIN ELECTROPHORESIS, SERUM ?LAB: Lipid Panel ?LAB: Beta-2 Microglobulin, Serum ?LAB: Microalbumin, Random ?LAB: T Spot TB ?LAB: Hemoglobin A1c ?LAB: Sputum Culture ?Imaging: XR CHEST 2 VIEW PA & LAT 4.?Type 2 diabetes mellitus without complication, unspecified whether director long term care insulin use?LAB: PROFILE, FASTING (COMPREHENSIVE METABOLIC) ?LAB: LDH ?LAB: CBC w DIFF ?LAB: SED RATE (ESR) ?LAB: IMMUNOFIXATION PANEL, SERUM (IEP) ?LAB: PROTEIN ELECTROPHORESIS, SERUM ?LAB: Lipid Panel ?LAB: Beta-2 Microglobulin, Serum ?LAB: Microalbumin, Random ?LAB: T Spot TB ?LAB: Hemoglobin A1c 5.?Others? Continue Valsartan Tablet, 160 MG, TAKE 1 TABLET BY MOUTH EVERY DAY FOR 30 DAYS;?Continue Allopurinol Tablet, 100 MG, TAKE 1 TABLET BY MOUTH EVERY DAY FOR 30 DAYS.?? * Follow Up:?10-14 days (Reaso n: OV review labs and cxr done at ) * Images: * The named appointment provid er may or may not be the originator of this progress note, and it is not deemed complete until electronically signed by the appointment provider. Sign off status: Pending * Provider:?Humza Munroe MD Date:?06/2024 Generated for Debbie adame/Jc/Kathyitting on:?05/08/2024 10:34 AM EST History and Physical Notes * HPI (History of Present Illness) Category Sub-Category Detail Notes COVID-19 Screening Questions Have you had any new onset fever, chills, cough, congestion, sore throat, shortness of breath, muscle aches?: Yes Chills, Muscle Aches, Cough, SOB, Sore Throat, Fever Examination Category Sub-Category Detail Notes General Examination GENERAL APPEARANCE: pleasant , well nourished, well developed, in no acute distress, calm and relaxed HEAD: atraumatic, normocep halic EYES: eomi, perrla, anicte alejandro, conjugate EARS: normal NOSE: septum intact NECK/THYROID: no jugular venous di stention, no carotid bruit, thyroid normal HEART: no clicks, gallops, murmurs, or rubs, regular rhythm, S1, S2 normal, no s3, or vascular bruits LUNGS: clear to auscultatio n ABDOMEN: bowel sounds normal, no ascites, no organomegaly, no mass NEUROLOGIC: alert and oriented, cranial nerves 2-12 grossly intact, deep tendon reflexes 2+ symmetrical, motor strength normal upper and lower extremities, sensory exam intact SKIN: no suspicious lesion s, anicteric PERIPHERAL PULSES: normal BREASTS: no masses palpable b ilaterally MUSCULOSKELETAL: extremities unremark able, no clubbing, cyanosis or edema LYMPH NODES: no enlarged lymph no eben,spleen normal RECTAL EXAM: not examined PSYCH: alert, oriented ORAL CAVITY: normal, unremarkable
--- OUTSIDE RECORDS SUMMARY | 2024-05-08 10:35 | XMS_ITS | Patient Health Record ---
Author Organization Humza Munroe III, MD Address [address] [place] [address] Care Team Providers Care Banquet Prep Cook Name Role Phone Humza Munroe Primary Care Provider Allergies Allergen (clinical drug ingredient) Drug/Non Drug Allergy documented on EMR Reaction Allergy Type Onset Date Status No Known Drug Allergy Unknown Drug Allergy Active Results Component Value Reference Range Notes Complete Blood Count Auto Di ff Reviewed date:05/27/2023 08:35:20 AM Interpretation: Performing Lab:[facility], [address] [place] [phone] Notes/Report: White Blood Count 6.3 4.8-10.8 X10*3/uL Red Blood Count 5.30 4.60-5.80 X10*6/uL Hemoglobin 14.7 14.0-18.0 g/dl Hematocrit 42.8 42.0-52.0 % Mean Corpuscular Volume 80.8 80.0-98.0 fL Mean Corpuscular Hemoglobin 27.7 27.0-33.0 pg Mean Corpuscular HGB Conc 34.3 31.0-36.0 g/dl Red Cell Distribution Width 14.1 11.0-16.0 % Platelet Count 183 160-400 X10*3/uL Mean Platelet Volume 9.5 9.4-12.4 fL Neutrophils Percent Auto 66.8 45-73 % Imm Gran Pct Auto 0.8 0.0-0.4 % Lymphocytes Percent Auto 22.3 20-40 % Monocytes Percent Auto 7.9 2-11 % Eosinophils Percent Auto 1.9 0-4 % Basophils Percent Auto 0.3 0-2 % NRBC Pct Auto 0.0 0.0-0.2 /100WBC Neutrophils Absolute Auto 4.2 2.0-8.3 x10*3/u L Imm Gran Abs Auto 0.05 0.00-0.03 X10*3/uL Lymphocytes Absolute Auto 1.4 1.2-4.9 X10*3/u L Monocytes Absolute Auto 0.5 0.1-1.2 X10*3/uL Eosinophils Absolute Auto 0.1 0.0-0.4 X10*3/u L Basophils Absolute Auto 0.0 0.0-0.2 X10*3/uL NRBC Abs Auto 0.000 0.0-0.012 X10*3/uL Comprehensive [place]. Panel Fa st Reviewed date:05/27/2023 08:35:20 AM Interpretation: Performing Lab:[facility], [address] [place] [phone] Notes/Report: Sodium 144 135-145 mmol/L Potassium 4.7 3.3-5.1 mmol/L Chloride 108 96-108 mmol/L Carbon Dioxide 28 22-29 mmol/L Anion Gap 13 12-20 Blood Urea Nitrogen 12 9-16 mg/dL Creatinine 1.05 0.5-1.4 mg/dL Estimated Glomerular Filt Rate > 60 NOTE: For -Cuban individuals, multiply the result by 1.210. Chronic Kidney Disease: Estimated GFR < 60 mL/min/1.73m2 Severe Kidney Disease: Estimated GFR < 15 mL/min/1.73m2 Glucose Fasting 119 60-99 mg/dL A fasting glucose from 100-125 mg/dl is considered impaired (pre-diabetes). Calcium 9.5 8.4-10.2 mg/dL Bilirubin Total 0.6 0.0-1.0 mg/dL Aspartate Amino Transferase 15 5-37 U/L Alanine Aminotransferase 18 0-40 U/L Total Protein 6.5 6.5-8.0 g/dL Albumin Level 4.1 3.5-5.0 g/dL Alkaline Phosphatase 68 39-117 U/L Lipid Panel Reviewed date:05/27/2023 08:35:20 AM Interpretation: Performing Lab:[facility], [address] [place] [phone] Notes/Report: Triglycerides 144 <150 mg/dL Desirable Triglyceride: less than 150 mg/dL Borderline High Triglyceride 150-199 mg/dL High Triglyceride: 200-499 mg/dL Very High Triglyceride: greater than or equal to 5OO mg/dL Cholesterol 188 <200 mg/dL Desirable Cholesterol: less than 200 mg/dL Borderline High Cholesterol: 200-239 mg/dL High Cholesterol: greater than 239 mg/dL LDL Cholesterol Calculated 125 <100 mg/dL Desirable LDL: less than 100 mg/dL Near Optimal/Above Optimal LDL: 110-129 mg/dL Borderline High LDL: 130-159 mg/dL High LDL: 160-189 mg/dL Very High LDL: greater than or equal to 190 mg/dL HDL Cholesterol 35 >40 mg/dL Desirable HDL: greater than 40 mg/dL Note: This HDL assay may give artificially low results in patients with liver disease. Beta-2 Microglobulin, Serum Reviewed date:05/29/2023 04:13:59 AM Interpretation: Performing Lab:[facility], [address] [place] [phone] Notes/Report: Beta-2 Microglobulin, Serum 2.23 < OR = 2.51 mg/L THIS TEST WAS PERFORMED AT: [facility] [address] [place] [phone] REBECCA CHI MD Microalbumin, Random Reviewed date:05/27/2023 08:35:20 AM Interpretation: Performing Lab:[facility], [address] [place] [phone] Notes/Report: Creatinine Urine 176.53 Microalbumin Urine 51.0 Microalbum/Creatinine Ratio Ur 28.8 <30 ug/mg cr Albumin/Creatinine Ratio Reference Ranges: Normal: < 30 ug/mg creatinine Microalbuminuria: 30 - 300 ug/mg creatinine Clinical Albuminuria: > 300 ug/mg creatinine Protein Electrophoresis, Ser um Reviewed date:06/02/2023 01:04:40 PM Interpretation: Performing Lab:[facility], [address] [place] [phone] Notes/Report: Prot Elec - Total Protein 6.0 6.1-8.1 g/dL Prot Elec - Albumin 3.9 3.8-4.8 g/dL Prot Elec - Alpha1 0.3 0.2-0.3 g/dL Prot Elec - Alpha2 0.6 0.5-0.9 g/dL Prot Elec - Beta 1 0.5 0.4-0.6 g/dL Prot Elec - Beta 2 0.3 0.2-0.5 g/dL Prot Elec - Gamma 0.5 0.8-1.7 g/dL PES - Abn Protein Band 1 0.2 NONE DE TECTED g/dL PES-Abn Protein Band 2 TNP PES-Abn Protein Band 3 TNP Prot Elec - Interpretation SEE NOTE Evaluation reveals a faint restricted band (M-spike) migrating in the gamma globulin region. If not already requested, Immunofixation should be considered. THIS TEST WAS PERFORMED AT: [facility] [address] [place] [phone] REBECCA CHI MD Hemoglobin A1c Reviewed date:05/27/2023 08:35:20 AM Interpretation: Performing Lab:[facility], [address] [place] [phone] Notes/Report: Hemoglobin A1c % 5.7 <6.0 % Hemoglobin A1C Reference Range Adults: 4.8 - 6.0 % Non diabetic: < 6.0 % Goal: < 7.0 % Additional Action Suggested: > 8.0 % Note: Hemoglobin A1c results are invalid for patients with abnormal amounts of HbF. Blood transfusions may impact the HbA1c concentration in the patient sample. Estimated Average Glucose 117 eAG = Estimated average glucose which is %A1C expressed as average glucose, using the formula of the [id number] Average Glucose study (ADAG), Diabetes Care, Vol.31,#8, Dec. 2007 Complete Blood Count Auto Di ff Reviewed date:09/18/2023 04:38:14 PM Interpretation: Performing Lab:[facility], [address] [place] [phone] Notes/Report: White Blood Count 5.9 4.8-10.8 X10*3/uL Red Blood Count 4.99 4.60-5.80 X10*6/uL Hemoglobin 14.1 14.0-18.0 g/dl Hematocrit 40.0 42.0-52.0 % Mean Corpuscular Volume 80.2 80.0-98.0 fL Mean Corpuscular Hemoglobin 28.3 27.0-33.0 pg Mean Corpuscular HGB Conc 35.3 31.0-36.0 g/dl Red Cell Distribution Width 14.0 11.0-16.0 % Platelet Count 172 160-400 X10*3/uL Mean Platelet Volume 10.8 9.4-12.4 fL Neutrophils Percent Auto 66.5 45-73 % Imm Gran Pct Auto 0.8 0.0-0.4 % Lymphocytes Percent Auto 23.4 20-40 % Monocytes Percent Auto 7.1 2-11 % Eosinophils Percent Auto 1.9 0-4 % Basophils Percent Auto 0.3 0-2 % NRBC Pct Auto 0.0 0.0-0.2 /100WBC Neutrophils Absolute Auto 3.9 2.0-8.3 x10*3/u L Imm Gran Abs Auto 0.05 0.00-0.03 X10*3/uL Lymphocytes Absolute Auto 1.4 1.2-4.9 X10*3/u L Monocytes Absolute Auto 0.4 0.1-1.2 X10*3/uL Eosinophils Absolute Auto 0.1 0.0-0.4 X10*3/u L Basophils Absolute Auto 0.0 0.0-0.2 X10*3/uL NRBC Abs Auto 0.000 0.0-0.012 X10*3/uL Comprehensive [place]. Panel Fa st Reviewed date:09/18/2023 04:38:14 PM Interpretation: Performing Lab:[facility], [address] [place] [phone] Notes/Report: Sodium 141 135-145 mmol/L Potassium 4.1 3.3-5.1 mmol/L Chloride 108 96-108 mmol/L Carbon Dioxide 25 22-29 mmol/L Anion Gap 12 12-20 Blood Urea Nitrogen 8 9-16 mg/dL Creatinine 0.90 0.5-1.4 mg/dL Estimated Glomerular Filt Rate > 60 NOTE: For -Cuban individuals, multiply the result by 1.210. Chronic Kidney Disease: Estimated GFR < 60 mL/min/1.73m2 Severe Kidney Disease: Estimated GFR < 15 mL/min/1.73m2 Glucose Fasting 131 60-99 mg/dL A fasting glucose of 126 mg/dl or greater on more than one occasion is considered diagnostic of diabetes. Calcium 9.1 8.4-10.2 mg/dL Bilirubin Total 0.6 0.0-1.0 mg/dL Aspartate Amino Transferase 14 5-37 U/L Alanine Aminotransferase 17 0-40 U/L Total Protein 6.1 6.5-8.0 g/dL Albumin Level 3.8 3.5-5.0 g/dL Alkaline Phosphatase 64 39-117 U/L Lipid Panel Reviewed date:09/18/2023 04:38:14 PM Interpretation: Performing Lab:[address] [phone] Notes/Report: Triglycerides 162 <150 mg/dL Desirable Triglyceride: less than 150 mg/dL Borderline High Triglyceride 150-199 mg/dL High Triglyceride: 200-499 mg/dL Very High Triglyceride: greater than or equal to 5OO mg/dL Cholesterol 181 <200 mg/dL Desirable Cholesterol: less than 200 mg/dL Borderline High Cholesterol: 200-239 mg/dL High Cholesterol: greater than 239 mg/dL LDL Cholesterol Calculated 112 <100 mg/dL Desirable LDL: less than 100 mg/dL Near Optimal/Above Optimal LDL: 110-129 mg/dL Borderline High LDL: 130-159 mg/dL High LDL: 160-189 mg/dL Very High LDL: greater than or equal to 190 mg/dL HDL Cholesterol 37 >40 mg/dL Desirable HDL: greater than 40 mg/dL Note: This HDL assay may give artificially low results in patients with liver disease. Prostate Specific Antigen Reviewed date:09/18/2023 04:38:14 PM Interpretation: Performing Lab:[address] [phone] Notes/Report: Prostate Specific Antigen 1.07 <0.05-4.0 ng/mL PSA methodology: Kessler Alinity i Chemiluminescent Microparticle Immunoassay (CMIA) Beta-2 Microglobulin, Serum Reviewed date:09/18/2023 04:38:14 PM Interpretation: Performing Lab:[address] [phone] Notes/Report: Beta-2 Microglobulin, Serum 1.93 < OR = 2.51 mg/L THIS TEST WAS PERFORMED AT: [facility] [address] [place] [phone] REBECCA CHI MD Protein Electrophoresis, Ser um Reviewed date:09/29/2023 04:47:25 AM Interpretation: Performing Lab:[facility], [address] [place] [phone] Notes/Report: Prot Elec - Total Protein 5.8 6.1-8.1 g/dL Prot Elec - Albumin 3.8 3.8-4.8 g/dL Prot Elec - Alpha1 0.3 0.2-0.3 g/dL Prot Elec - Alpha2 0.5 0.5-0.9 g/dL Prot Elec - Beta 1 0.5 0.4-0.6 g/dL Prot Elec - Beta 2 0.2 0.2-0.5 g/dL Prot Elec - Gamma 0.5 0.8-1.7 g/dL PES - Abn Protein Band 1 0.2 NONE DE TECTED g/dL PES-Abn Protein Band 2 TNP PES-Abn Protein Band 3 TNP Prot Elec - Interpretation SEE NOTE Evaluation reveals a faint restricted band (M-spike) migrating in the gamma globulin region. If not already requested, Immunofixation should be considered. THIS TEST WAS PERFORMED AT: [facility] [address] [place] [phone] REBECCA CHI MD Immunofixation Pnl, Serum Reviewed date:09/29/2023 04:47:25 AM Interpretation: Performing Lab:[facility], [address] [place] [phone] Notes/Report: IgG 066 650-3617 mg/dL IgA 15 70-320 mg/dL IgM 326 50-300 mg/dL THIS TEST WAS PERFORMED AT: [facility] [address] [place] [phone] REBECCA CHI MD Immunofixation Interpretation SEE NOTE IgM kappa monoclonal band present. Viscosity Reviewed date:09/18/2023 04:38:14 PM Interpretation: Performing Lab:[facility], [address] [place] [phone] Notes/Report: Viscosity 1.5 1.5-1.9 rel to H2O Units = Relative to Water THIS TEST WAS PERFORMED AT: [employer]/[facility] [address] [place] [address] RANDA ALVES MD,PHD Hemoglobin A1c Reviewed date:09/18/2023 04:38:14 PM Interpretation: Performing Lab:[facility], [address] [place] [phone] Notes/Report: Hemoglobin A1c % 6.2 <6.0 % Hemoglobin A1C Reference Range Adults: 4.8 - 6.0 % Non diabetic: < 6.0 % Goal: < 7.0 % Additional Action Suggested: > 8.0 % Note: Hemoglobin A1c results are invalid for patients with abnormal amounts of HbF. Blood transfusions may impact the HbA1c concentration in the patient sample. Estimated Average Glucose 131 eAG = Estimated average glucose which is %A1C expressed as average glucose, using the formula of the [id number] Average Glucose study (ADAG), Diabetes Care, Vol.31,#8, 2007 Immunoglobulins,IgG IgA IgM Reviewed date:09/29/2023 04:47:25 AM Interpretation: Performing Lab:[facility], [address] [place] [phone] Notes/Report: IgG 580 439-6956 mg/dL IgA 11 70-320 mg/dL IgM 345 50-300 mg/dL THIS TEST WAS PERFORMED AT: [facility] [address] [place] [phone] REBECCA CHI MD Immunoglobulin G Subclasses Reviewed date:09/29/2023 04:47:25 AM Interpretation: Performing Lab:[facility], [address] [place] [phone] Notes/Report: Immunoglobulin G Subclass 1 172 382-929 mg/dL Immunoglobulin G Subclass 2 89 241-700 mg/dL Immunoglobulin G Subclass 3 15 22-178 mg/dL Immunoglobulin G Subclass 4 12.6 4-86 mg/dL Immunoglobulin G Total 391 378-7018 mg/dL THIS TEST WAS PERFORMED AT: [facility] [address] [place] [phone] REBECCA CHI MD XR chest 2V Reviewed date:12/23/2023 09:05:07 AM Interpretation: Performing Lab: Notes/Report: [address] [address] XRay Report Signed Patient: Ranjan Forman MR#: [id number] 3 : 1960 Acct:[id number] Age/Sex: 63 / M ADM Date: 09/22/23 Loc: HO.XRAY Attending Dr: Humza Munroe MD Ordering Physician: Humza Munroe MD Date of Service: 09/22/23 Procedure(s): XR chest 2V Accession Number(s): [id number] cc: Humza Munroe MD EXAMINATION: XR CHEST CLINICAL INFORMATION: Lymphoma, patient says to check his chest COMPARISON: PET/CT 01/23/2023. Chest radiographs 04/06/2022. TECHNIQUE: 2 views of the chest were obtained. FINDINGS: There is no gross pneumothorax. Heart size is normal. No pleural effusion. No focal consolidation to suggest pneumonia. Mild degenerative changes in the thoracic spine. XR/XR chest 2V IMPRESSION: No evidence of pneumonia. Dictated By: Angela Santiago MD Signed By: <Electronically signed by Angela Santiago MD in [place]> 10/10/23529 DD/ 1008 TD/TT: X Ray Developer: [place] [id number] XRay Report Signed Patient: Ranjan Forman MR#: [id number] 3 : 1960 Acct:[id number] Age/Sex: 63 / M ADM Date: 09/22/23 Loc: HO.XRYUSUF Attending Dr: Humza Munroe MD Ordering Physician: Humza Munroe MD Date of Service: 09/22/23 Procedure(s): XR chest 2V Accession Number(s): [id number] cc: Humza Munroe MD EXAMINATION: XR CHEST CLINICAL INFORMATION: Lymphoma, patient says to check his chest COMPARISON: PET/CT 01/23/2023. Chest radiographs 04/06/2022. TECHNIQUE: 2 views of the chest were obtained. FINDINGS: There is no gross pneumothorax. Heart size is normal. No pleural effusion. No focal consolidation to suggest pneumonia. Mild degenerative changes in the thoracic spine. XR/XR chest 2V IMPRESSION: No evidence of pneumonia. Dictated By: Angela Santiago MD Signed By: <Electronically signed by Angela Santiago MD in [place]> 10/10/23 0530 DD/ 1008 TD/TT: X Ray Developer: Reason For Referral No Information Medications Medication SIG (Take, Route, Fr equency, Duration) Notes Start Date End Date Status Allopurinol 100 MG TAKE 1 TABLET BY STEVEN TH EVERY DAY FOR 30 DAYS Active Valsartan 160 MG TAKE 1 TABLET BY STEVEN TH EVERY DAY FOR 30 DAYS Active Imbruvica 280 MG 1 tablet Oral Once a day Active Immunizations Vaccine Route Administration Date Status Comme nts COVID- 19 Vaccine Unknown 06/20/2022 Administered Social History Tobacco Use: Social History Observation Description Date Details (start date - stop date) Former Smoker NA - NA Sex Assigned At : Social History Observation Description Sex Assigned At Male Tobacco Use/Smoking Question Answer Notes Patient is a former smoker How long has it been since you last smoked? 5-10 years Additional Findings: Tobacco Non-User Ex-cigaret te smoker Alcohol Screen Question Answer Notes Did you have a drink containing alcohol in the p ast year? No Points 0 Interpretation Negative Problems Problem Type SNOMED Code ICD Code Onset Dates Problem Status W/U Status Risk Notes Problem 3309623 Former smoker (Z87.891) Active confirmed He remains highly motivated to remain abstinent. Problem 563856056 Waldenstrom macroglobulinemia (C88.0) Active confirmed His viscosity has been acceptable. The IgM level is lower. The value will be repeated periodically. No change in his therapy is needed today. Problem Coronary artery disease (97650042) Coronary artery disease (I25.10) Active confirmed He has had no angina recently. He denies any peripheral edema or chest pain. Problem Benign prostatic hyperplasia (119621547) BPH (benign prostatic hyperplasia) (N40.0) Active confirmed He rises from sleep once or twice nightly to urinate. We have discussed lifestyle modification as way to reduce nocturia. Problem 81594259 Essential hypertension (I10) Active confirmed He will c ome to the office to measure his blood pressure which may need better control. 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 The IgM level has decreased. The abnormal protein level on electrophoresis has remained stable. His beta-2 microglobulin is normal. Observation will continue. He will continue on ibrutinib. Problem 716146838 Gastroesophageal reflux disease without esophagitis (K21.9) Active confirmed His reflux is well-controlled at this time with medication. No change in his regimen. He was needed. Problem Leukopenia (58377151) Chronic leukopenia (D72.819) Active confirmed His white blood cell count remains normal. Problem 941359065 Type 2 diabetes mellitus without complication, without long-term current use of insulin (E11.9) Active confirmed His hemoglob in A1c is 5.7. No change in his regimen was made today. Diabetes is controlled well. I have recommended weight loss and adherence to a diabetic diet. Problem 280119311 Type 2 diabetes mellitus without complication, unspecified whether roasterman insulin use (E11.9) Active confirmed Problem 527069185 Chronic gout without tophus, unspecified cause, unspecified site (M1A.9XX0) Active confirmed Since his last visit he has not had any episodes of gout. Vital Signs Heart Rate 70 /min 05/08/2024 Temperature 99.7 degrees Fahrenheit 05/08/2024 Blood pressure diastolic 80 mm Hg 10/03/2023 Height 66 in 05/08/2024 Blood pressure systolic 136 mm Hg 10/03/2023 Weight 170 lbs 05/08/2024 BMI 27.44 kg/m2 05/08/2024 Encounters Encounter Location Date Provider Diagnosis Humza Munroe III, MD [address] [place] [address] [place] [phone] 05/08/2024 Humza Munroe Malignant lymphoplasmacytic lymphoma C83.00 ; Former smoker Z87.891 ; Acute cough R05.1 and Type 2 diabetes mellitus without complication, unspecified whether senior care insulin use E11.9 Humza Munroe III, MD [address] [place] [address] [place] [address] 06/01/2023 Humza Munroe Malignant lymphoplasmacytic lymphoma C83.00 ; Essential hypertension I10 ; Type 2 diabetes mellitus without complication, without long-term current use of insulin E11.9 ; Chronic leukopenia D72.819 and BPH (benign prostatic hyperplasia) N40.0 Humza Munroe III, MD [address] [place] [address] [place] [phone] 09/18/2023 Humza Munroe Malignant lymphoplasmacytic lymphoma C83.00 ; Gastroesophageal reflux disease without esophagitis K21.9 ; Waldenstrom macroglobulinemia C88.0 ; Essential hypertension I10 ; Coronary artery disease I25.10 ; Type 2 diabetes mellitus without complication, without long-term current use of insulin E11.9 ; Chronic leukopenia D72.819 ; Chronic gout without tophus, unspecified cause, unspecified site M1A.9XX0 ; BPH (benign prostatic hyperplasia) N40.0 ; 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 and Former smoker Z87.891 Humza Munroe III, MD [address] [place] [address] [place] [address] 10/03/2023 Humza Munroe Malignant lymphoplasmacytic lymphoma C83.00 ; Gastroesophageal reflux disease without esophagitis K21.9 ; Waldenstrom macroglobulinemia C88.0 ; Essential hypertension I10 ; Coronary artery disease I25.10 ; BPH (benign prostatic hyperplasia) N40.0 and Chronic gout without tophus, unspecified cause, unspecified site M1A.9XX0 Humza Munroe III, MD [address] [place] [address] [place] [address] 10/10/2023 Humza Munroe Malignant lymphoplasmacytic lymphoma C83.00 ; Essential hypertension I10 ; Coronary artery disease I25.10 ; BPH (benign prostatic hyperplasia) N40.0 and Chronic gout without tophus, unspecified cause, unspecified site M1A.9XX0 Humza Munroe III, MD [address] [place] [address] [place] [address] 08/22/2023 Humza Munroe III, MD [address] [place] [address] [place] [address] 08/22/2023 Humza Munroe III, MD [address] [place] [address] [place] [address] 08/27/2023 Humza Munroe III, MD [address] [place] [address] [place] [phone] 09/10/2023 Humza Munroe III, MD [address] [place] [address] [place] [phone] 10/11/2023 Humza Munroe III, MD [address] [place] [address] [place] [address] 05/05/2024 Humza Munroe Assessments Encounter Date Diagnosis (ICD Code) Assessment Notes T reatment Notes Treatment Clinical Notes 05/08/2024 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 The IgM level has decreased. The abnormal protein level on electrophoresis has remained stable. His beta-2 microglobulin is normal. Observation will continue. He will continue on ibrutinib. 06/01/2023 Essential hypertensi on (ICD-10 - I10) His blood pressure is in the normal range and no change in his regimen was necessary today. 06/01/2023 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 The IgM level has decreased. The abnormal protein level on electrophoresis has remained stable. His beta-2 microglobulin is normal. Observation will continue. He will continue on ibrutinib. 09/18/2023 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 The IgM level has decreased. The abnormal protein level on electrophoresis has remained stable. His beta-2 microglobulin is normal. Observation will continue. He will continue on ibrutinib. 09/18/2023 Gastroesophageal reflux disease without esophagitis (ICD-10 - K21.9) His reflux is well-controlled at this time with medication. No change in his regimen. He was needed. 10/03/2023 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 The IgM level has decreased. The abnormal protein level on electrophoresis has remained stable. His beta-2 microglobulin is normal. Observation will continue. He will continue on ibrutinib. 10/03/2023 Gastroesophageal reflux disease without esophagitis (ICD-10 - K21.9) His reflux is well-controlled at this time with medication. No change in his regimen. He was needed. 10/10/2023 Essential hypertensi on (ICD-10 - I10) He will come to the office to measure his blood pressure which may need better control. 10/10/2023 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 The IgM level has decreased. The abnormal protein level on electrophoresis has remained stable. His beta-2 microglobulin is normal. Observation will continue. He will continue on ibrutinib. 05/08/2024 Former smoker (ICD-1 0 - Z87.891) 06/01/2023 Type 2 diabetes mellitus without complication, without long-term current use of insulin (ICD-10 - E11.9) His hemoglobin A1c is 5.7. No change in his regimen was made today. Diabetes is controlled well. I have recommended weight loss and adherence to a diabetic diet. 09/18/2023 Waldenstrom macroglobulinemia (ICD-10 - C88.0) His viscosity has been acceptable. The IgM level is lower. The value will be repeated periodically. No change in his therapy is needed today. 10/03/2023 Waldenstrom macroglobulinemia (ICD-10 - C88.0) His viscosity has been acceptable. The IgM level is lower. The value will be repeated periodically. No change in his therapy is needed today. 10/10/2023 Coronary artery disease (ICD-10 - I25.10) He has had no angina recently. He denies any peripheral edema or chest pain. 05/08/2024 Acute cough (ICD-10 - R05.1) 06/01/2023 Chronic leukopenia (ICD-10 - D72.819) His white blood cell count remains normal. 09/18/2023 Essential hypertensi on (ICD-10 - I10) His blood pressure is in the normal range and no change in his regimen was necessary today. 10/03/2023 Essential hypertensi on (ICD-10 - I10) His blood pressure is in the normal range at 136/80 and no change in his regimen was necessary today. 10/10/2023 BPH (benign prostati c hyperplasia) (ICD-10 - N40.0) He rises from sleep once or twice nightly to urinate. We have discussed lifestyle modification as way to reduce nocturia. 05/08/2024 Type 2 diabetes mellitus without complication, unspecified whether roasterman insulin use (ICD-10 - E11.9) 06/01/2023 BPH (benign prostati c hyperplasia) (ICD-10 - N40.0) He rises from sleep once or twice nightly to urinate. We have discussed lifestyle modification as way to reduce nocturia. 09/18/2023 Coronary artery disease (ICD-10 - I25.10) He has had no angina recently. He denies any peripheral edema or chest pain. 10/03/2023 Coronary artery disease (ICD-10 - I25.10) He has had no angina recently. He denies any peripheral edema or chest pain. 10/10/2023 Chronic gout without tophus, unspecified cause, unspecified site (ICD-10 - M1A.9XX0) Since his last visit he has not had any episodes of gout. 09/18/2023 Type 2 diabetes mellitus without complication, without long-term current use of insulin (ICD-10 - E11.9) His hemoglobin A1c is 5.7. No change in his regimen was made today. Diabetes is controlled well. I have recommended weight loss and adherence to a diabetic diet. 10/03/2023 BPH (benign prostati c hyperplasia) (ICD-10 - N40.0) He rises from sleep once or twice nightly to urinate. We have discussed lifestyle modification as way to reduce nocturia. 09/18/2023 Chronic leukopenia (ICD-10 - D72.819) His white blood cell count remains normal. 10/03/2023 Chronic gout without tophus, unspecified cause, unspecified site (ICD-10 - M1A.9XX0) Since his last visit he has not had any episodes of gout. 09/18/2023 Chronic gout without tophus, unspecified cause, unspecified site (ICD-10 - M1A.9XX0) Since his last visit he has not had any episodes of gout. 09/18/2023 BPH (benign prostati c hyperplasia) (ICD-10 - N40.0) He rises from sleep once or twice nightly to urinate. We have discussed lifestyle modification as way to reduce nocturia. 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 There was no sign of recurrent lymphoma. Observation will continue. 09/18/2023 Former smoker (ICD-1 0 - Z87.891) He remains highly motivated to remain abstinent. Plan Of Treatment Pending Test Test Name Order Date PROFILE, FASTING (COMPREHENSIVE METABOLI C) 08/03/2020 PROFILE, FASTING (COMPREHENSIVE METABOLI C) 12/29/2022 PROFILE, FASTING (COMPREHENSIVE METABOLI C) 06/01/2023 PROFILE, FASTING (COMPREHENSIVE METABOLI C) 05/08/2024 PROFILE, FASTING (COMPREHENSIVE METABOLI C) 01/31/2023 PROFILE, FASTING (COMPREHENSIVE METABOLI C) 03/16/2023 PROFILE, FASTING (COMPREHENSIVE METABOLI C) 02/08/2021 PROFILE, RANDOM (COMPREHENSIVE METABOLIC ) 06/20/2021 PROFILE, RANDOM (COMPREHENSIVE METABOLIC ) 02/03/2019 PROFILE, RANDOM (COMPREHENSIVE METABOLIC ) 04/18/2021 PROFILE, RANDOM (COMPREHENSIVE METABOLIC ) 10/05/2020 PROFILE, RANDOM (COMPREHENSIVE METABOLIC ) 03/29/2020 PROFILE, RANDOM (COMPREHENSIVE METABOLIC ) 11/21/2021 PROFILE, RANDOM (COMPREHENSIVE METABOLIC ) 10/06/2019 PROFILE, RANDOM (COMPREHENSIVE METABOLIC ) 08/05/2019 PROFILE, RANDOM (COMPREHENSIVE METABOLIC ) 02/02/2020 PROFILE, RANDOM (COMPREHENSIVE METABOLIC ) 08/22/2021 PROFILE, RANDOM (COMPREHENSIVE METABOLIC ) 12/01/2019 PROFILE, RANDOM (COMPREHENSIVE METABOLIC ) 02/27/2022 PROFILE, RANDOM (COMPREHENSIVE METABOLIC ) 03/11/2020 PROFILE, RANDOM (COMPREHENSIVE METABOLIC ) 03/11/2019 PROFILE, RANDOM (COMPREHENSIVE METABOLIC ) 12/07/2020 PROFILE, RANDOM (COMPREHENSIVE METABOLIC ) 06/01/2020 PROFILE, RANDOM (COMPREHENSIVE METABOLIC ) 05/30/2022 HEMOGLOBIN A1C (GLYCOHEMOGLOBIN) 021 HEMOGLOBIN A1C (GLYCOHEMOGLOBIN) 021 HEMOGLOBIN A1C (GLYCOHEMOGLOBIN) 023 HEMOGLOBIN A1C (GLYCOHEMOGLOBIN) 022 HEMOGLOBIN A1C (GLYCOHEMOGLOBIN) 019 BUN 04/06/2020 CREATININE 04/06/2020 URIC ACID 01/31/2023 LIPID PANEL 01/31/2023 LIPID PANEL 06/01/2020 LIPID PANEL 02/08/2021 LIPID PANEL 12/29/2022 LIPID PANEL 08/22/2021 LDH 12/07/2020 LDH 08/22/2021 LDH 05/30/2022 LDH 06/20/2021 LDH 08/03/2020 LDH 04/18/2021 LDH 10/05/2020 LDH 03/29/2020 LDH 06/01/2020 LDH 02/08/2021 LDH 11/21/2021 LDH 05/08/2024 LDH 10/06/2019 LDH 08/05/2019 LDH 02/02/2020 LDH 12/01/2019 LDH 03/11/2020 FERRITIN 03/11/2020 FERRITIN 12/29/2022 FERRITIN 11/21/2021 VITAMIN B12 AND FOLATE 03/11/2020 PSA, TOTAL 08/22/2021 PSA, TOTAL 06/01/2023 RHEUMATOID FACTOR (RA, RF) 02/02/2020 MICROALBUMIN, RANDOM 08/22/2021 CBC w DIFF 02/02/2020 CBC w DIFF 03/11/2019 CBC w DIFF 12/07/2020 CBC w DIFF 05/30/2022 CBC w DIFF 01/31/2023 CBC w DIFF 03/11/2020 CBC w DIFF 06/20/2021 CBC w DIFF 08/03/2020 CBC w DIFF 04/18/2021 CBC w DIFF 10/05/2020 CBC w DIFF 03/29/2020 CBC w DIFF 08/22/2021 CBC w DIFF 06/01/2020 CBC w DIFF 02/08/2021 CBC w DIFF 05/08/2024 CBC w DIFF 10/06/2019 CBC w DIFF 02/27/2022 CBC w DIFF 12/29/2022 CBC w DIFF 08/05/2019 CBC w DIFF 11/21/2021 CBC w DIFF 12/01/2019 CBC with MANUAL DIFFERENTIAL 02/03/2019 SED RATE (ESR) 10/06/2019 SED RATE (ESR) 02/27/2022 SED RATE (ESR) 12/01/2019 SED RATE (ESR) 02/02/2020 SED RATE (ESR) 12/07/2020 SED RATE (ESR) 08/03/2020 SED RATE (ESR) 03/11/2020 SED RATE (ESR) 06/20/2021 SED RATE (ESR) 10/05/2020 SED RATE (ESR) 03/29/2020 SED RATE (ESR) 06/01/2020 SED RATE (ESR) 02/08/2021 SED RATE (ESR) 05/08/2024 URINALYSIS - CLEAN CATCH (UA) 02/15/2022 IMMUNOFIXATION PANEL, SERUM (IEP) 2019 IMMUNOFIXATION PANEL, SERUM (IEP) 2021 IMMUNOFIXATION PANEL, SERUM (IEP) 2024 IMMUNOFIXATION PANEL, SERUM (IEP) 2019 IMMUNOFIXATION PANEL, SERUM (IEP) 2018 IMMUNOFIXATION PANEL, SERUM (IEP) 2019 IMMUNOFIXATION PANEL, SERUM (IEP) 2018 IMMUNOFIXATION PANEL, SERUM (IEP) 2022 IMMUNOFIXATION PANEL, SERUM (IEP) 2022 IMMUNOFIXATION PANEL, SERUM (IEP) 2021 IMMUNOFIXATION PANEL, SERUM (IEP) 2020 IMMUNOFIXATION PANEL, SERUM (IEP) 2020 IMMUNOFIXATION PANEL, SERUM (IEP) 2020 IMMUNOFIXATION PANEL, SERUM (IEP) 2021 IMMUNOFIXATION PANEL, SERUM (IEP) 2021 PROTEIN ELECTROPHORESIS, SERUM 2 PROTEIN ELECTROPHORESIS, SERUM 3 PROTEIN ELECTROPHORESIS, SERUM 3 PROTEIN ELECTROPHORESIS, SERUM 2 PROTEIN ELECTROPHORESIS, SERUM 5 PROTEIN ELECTROPHORESIS, SERUM 3 PROTEIN ELECTROPHORESIS, SERUM 3 PROTEIN ELECTROPHORESIS, SERUM 2 PROTEIN ELECTROPHORESIS, SERUM 1 PROTEIN ELECTROPHORESIS, SERUM 2 VISCOSITY 12/07/2020 VISCOSITY 06/20/2021 VISCOSITY 08/05/2019 VISCOSITY 10/06/2019 VISCOSITY 02/03/2019 VISCOSITY 04/18/2021 VISCOSITY 08/03/2020 BETA-2 MICROGLOBULIN, SERUM 08/22/2021 BETA-2 MICROGLOBULIN, SERUM 02/27/2022 BETA-2 MICROGLOBULIN, SERUM 12/29/2022 BETA-2 MICROGLOBULIN, SERUM 11/21/2021 IMMUNOFIXATION PANEL, URINE 24 HR (IEP) 03/16/2023 ROUTINE CULTURE 03/11/2020 CT ABD & PELVIS WITH CONTRAST 02/21/2022 CT CHEST WITH CONTRAST 02/21/[address] SKULL TO THIGHS 12/29/[address] SKULL TO THIGHS 10/02/2018 XR CHEST 2 VIEW PA & LAT 02/15/2022 XR CHEST 2 VIEW PA & LAT 09/18/2023 XR CHEST 2 VIEW PA & LAT 05/08/2024 US LEG RT VENOUS DOPPLER 03/11/2020 YESSENIA (ARABELLA) 02/02/2020 Echocardiogram 08/18/2019 Stress Test 08/13/2019 Stress Test 08/19/2019 PFT with DLCO 12/29/2022 CBC WITH AUTO DIFF 06/01/2023 CBC WITH AUTO DIFF 03/16/2023 T SPOT TB 02/27/2022 Lipid Panel 06/01/2023 Lipid Panel 05/08/2024 Lipid Panel 03/16/2023 Beta-2 Microglobulin, Serum 06/20/2021 Beta-2 Microglobulin, Serum 06/01/2023 Beta-2 Microglobulin, Serum 05/08/2024 Beta-2 Microglobulin, Serum 03/16/2023 Beta-2 Microglobulin, Serum 05/30/2022 Microalbumin, Random 03/16/2023 Microalbumin, Random 05/08/2024 Protein Electrophoresis, Serum Immunofixation Pnl, Serum 06/01/2023 T Spot TB 05/08/2024 Viscosity 06/01/2023 Urine Culture 02/15/2022 Hemoglobin A1c 03/16/2023 Hemoglobin A1c 06/01/2023 Hemoglobin A1c 05/08/2024 Sputum Culture 05/08/2024 Next Appt Details Provider Name:Humza Munroe, 05/20/2024 02:30:00 PM, [address] [place] [address] [facility] Janeen, [place], [address], Insurance Providers Payer Name Payer Address Payer Phone Subscriber Number Group Number Insured Name Patient Relationship to Insured Coverage Start Date Coverage End Date [employer] [address] [place] [phone] [id number] Ranjan Forman Self - patient is the insured Medical (General) History Medical History History ICD Code iron deficiency low B12 monoclonal IgM-k splenomegaly gerd gout lymphoplasmacytic lymphoma Waldenstrohms macroglobulinemia hyperviscosity syndrome Surgical History Surgery Date(Month/Year) bone marrow biopsy 08/2017
[2024-05-08 10:43] LABS: MANUAL DIFF FLAG NO
[2024-05-08 11:21] LABS: Basophils Percent Auto 0.4 % (0-2); Eosinophils Absolute Auto 0.1 X10*3/uL (0.0-0.4); Eosinophils Percent Auto 1.1 % (0-4); Hematocrit 40.1 % (42.0-52.0); Hemoglobin 14.2 g/dl (14.0-18.0); Imm Gran Abs Auto 0.07 X10*3/uL (0.00-0.03); Imm Gran Pct Auto 0.8 % (0.0-0.4); Lymphocytes Absolute Auto 1.2 X10*3/uL (1.2-4.9); Lymphocytes Percent Auto 12.7 % (20-40); Mean Corpuscular HGB Conc 35.4 g/dl (31.0-36.0); Mean Corpuscular Hemoglobin 28.4 pg (27.0-33.0); Mean Corpuscular Volume 80.2 fL (80.0-98.0); Mean Platelet Volume 9.9 fL (9.4-12.4); Monocytes Absolute Auto 0.5 X10*3/uL (0.1-1.2); Monocytes Percent Auto 4.9 % (2-11); Neutrophils Absolute Auto 7.4 x10*3/uL (2.0-8.3); Neutrophils Percent Auto 80.1 % (45-73); Platelet Count 212 X10*3/uL (160-400); Red Cell Distribution Width 13.5 % (11.0-16.0); White Blood Count 9.2 X10*3/uL (4.8-10.8)
[2024-05-08 11:23] LABS: Estimated Average Glucose 143 mg/dL; Hemoglobin A1C 173.0281 umol/L; Hemoglobin A1c % 6.6 % (<6.0); Total Hemoglobin (HGBA1C) 3547.3559 umol/L
[2024-05-08 11:52] LABS: Alanine Aminotransferase 23 U/L (0-40); Albumin Level 4.1 g/dL (3.5-5.0); Alkaline Phosphatase 64 U/L (39-117); Anion Gap 12 (12-20); Aspartate Amino Transferase 20 U/L (5-37); Bilirubin Total 0.6 mg/dL (0.0-1.0); Blood Urea Nitrogen 7 mg/dL (9-16); Carbon Dioxide 28 mmol/L (22-29); Chloride 105 mmol/L (96-108); Cholesterol 178 mg/dL (<200); Estimated Glomerular Filt Rate > 60; Glucose Fasting 124 mg/dL (60-99); HDL Cholesterol 36 mg/dL (>40); LDL Cholesterol Calculated 117 mg/dL (<100); Potassium 3.7 mmol/L (3.3-5.1); Sodium 141 mmol/L (135-145); Total Protein 6.6 g/dL (6.5-8.0); Triglycerides 126 mg/dL (<150)
[2024-05-08 11:56] LABS: Erythrocyte Sedimentation Rate 28 MM/HR (0-15)
[2024-05-08 12:10] LABS: Creatinine Urine 107.28 mg/dL; Microalbum/Creatinine Ratio Ur 31.6 ug/mg cr (<30)
[2024-05-08 12:13] LABS: Lactate Dehydrogenase 164 U/L (118-273)
[2024-05-10 02:19] LABS: Beta-2 Microglobulin, Serum 1.92 mg/L (< OR = 2.51)
[2024-05-11 03:53] LABS: TS Negative Control Passed; TS Panel A 0; TS Panel B 3; TS Positive Control Passed; TSpotTB Negative (Negative)
[2024-05-15 04:33] LABS: IgA 10 mg/dL (70-320); IgG 330 mg/dL (600-1540); IgM 286 mg/dL (50-300)
[2024-05-15 18:48] LABS: PES - Abn Protein Band 1 0.2 g/dL (NONE DETECTED); Prot Elec - Albumin 4.1 g/dL (3.8-4.8); Prot Elec - Alpha1 0.5 g/dL (0.2-0.3); Prot Elec - Alpha2 0.9 g/dL (0.5-0.9); Prot Elec - Beta 1 0.5 g/dL (0.4-0.6); Prot Elec - Beta 2 0.3 g/dL (0.2-0.5); Prot Elec - Gamma 0.5 g/dL (0.8-1.7); Prot Elec - Total Protein 6.7 g/dL (6.1-8.1)
== END 2024-05-08 10:17 | disposition home or self-care (01) ==
LOC: HO.XRAY 10:16
PROVIDERS: Visit Provider Internal Medicine Medical Oncology
DX: C83.00 Small cell B-cell lymphoma, unspecified site (principal); Z87.891 Personal history of nicotine dependence; R05.1 Acute cough; E11.9 Type 2 diabetes mellitus without complications
CPT/HCPCS: 36415; 71046; 80053; 80061; 82043; 82232; 82570; 82784; 83036; 83615; 84165; 85025; 85652; 86334; 86481; 87070; 87185; 87205

== ENCOUNTER → 2024-05-08 10:50 | Outpatient (BNV) | payer OTHER, SELFPAY | PROVIDERS: Visit Provider Radiology Diagnostic Radiology | DX: R05.1 Acute cough (principal); Z85.72 Personal history of non-Hodgkin lymphomas | CPT/HCPCS: 71046 ==

== ENCOUNTER 2024-08-18 07:08 | Outpatient (REF) | payer OTHER, SELFPAY ==
--- OUTSIDE RECORDS SUMMARY | 2024-08-18 07:11 | XMS_ITS ---
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 Assessments Encounter Date Diagnosis (ICD Code) Assessment Notes Treat ment Notes Treatment Clinical Notes 08/12/2024 Waldenstrom macroglobulinemia (ICD-10 - C88.0) 08/12/2024 Malignant lymphoplasmacytic lymphoma (ICD-10 - C83.00) Plan Of Treatment Pending Test Test Name Order Date CBC w DIFF 08/12/2024 Next Appt Details Provider Name:Humza Munroe, 09/19/2024 04:00:00 PM, [address] [place] [address] [place], [address], Progress Notes * DASIA, RanjanDOB:1960 (63 yo M)Acc No.[id number]:08/12/2024 Patient:?aRnjan FORMAN :1960???Age:63 Y???Sex:Male Address:[address] [place] [address] [place], [address] Subjective: * Chief Complaints: * ???Needs call back from MD * Medical History:? * Surgical History:? * Hospitalization/Major Diagno stic Procedure:? * Medications:? Objective: * Vitals:? * Physical Examination:? 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 Plan: * Treatment: * Procedure Codes:? * true * Date:? Generated for Debbie adame/Jc/eTransmitting on:?08/18/2024 07:10 AM EDT
--- OUTSIDE RECORDS SUMMARY | 2024-08-18 07:11 | XMS_ITS ---
Author Organization Humza Munroe III, MD Address [address] [place] [address] [place] [address] Care Team Providers Care Brim Ironer Hand Name Role Phone Humza Munroe [phone] REASON FOR VISIT Message Social History Sex Assigned At : Social History Observation Description Sex Assigned At Male Encounters Encounter Location Date Provider Diagnosis Humza Munroe III, MD [address] [place] [address] [place] [address] 07/31/2024 Humza Munroe Plan Of Treatment Next Appt Details Provider Name:Humza Munroe, 09/19/2024 04:00:00 PM, [address] [place] [address] [place], [address], Progress Notes * DASIA, RanjanDOB:1960 (63 yo M)Acc No.[id number]:07/31/2024 Patient:?Kyleigh FORMANbaron :1960???Age:63 Y???Sex:Male Address:[address] [place] [address], [address] * true * Date:? Generated for Chilangoi wendi/Jc/eTransmitting on:?08/18/2024 07:11 AM EDT
--- OUTSIDE RECORDS SUMMARY | 2024-08-18 07:11 | XMS_ITS | Patient Health Record ---
Author Organization Humza Munroe III, MD Address [address] [place] [address] [place] [address] Care Team Providers Care Youth Counselor Name Role Phone Humza Munroe [phone] Allergies Allergen (clinical drug ingredient) Drug/Non Drug Allergy documented on EMR Reaction Allergy Type Onset Date Status No Known Drug Allergy Unknown Drug Allergy Active Results Component Value Reference Range Notes Lipid Panel Reviewed date:05/13/2024 04:20:15 PM Interpretation: Performing Lab:[address] [address] Notes/Report: Triglycerides 126 <150 mg/dL Desirable Triglyceride: less than 150 mg/dL Borderline High Triglyceride 150-199 mg/dL High Triglyceride: 200-499 mg/dL Very High Triglyceride: greater than or equal to 5OO mg/dL Cholesterol 178 <200 mg/dL Desirable Cholesterol: less than 200 mg/dL Borderline High Cholesterol: 200-239 mg/dL High Cholesterol: greater than 239 mg/dL LDL Cholesterol Calculated 117 <100 mg/dL Desirable LDL: less than 100 mg/dL Near Optimal/Above Optimal LDL: 110-129 mg/dL Borderline High LDL: 130-159 mg/dL High LDL: 160-189 mg/dL Very High LDL: greater than or equal to 190 mg/dL HDL Cholesterol 36 >40 mg/dL Desirable HDL: greater than 40 mg/dL Note: This HDL assay may give artificially low results in patients with liver disease. Beta-2 Microglobulin, Serum Reviewed date:05/13/2024 04:20:15 PM Interpretation: Performing Lab:[facility], [address] [place] [phone] Notes/Report: Beta-2 Microglobulin, Serum 1.92 < OR = 2.51 mg/L THIS TEST WAS PERFORMED AT: [facility] [address] [place] [phone] REBECCA CHI MD Microalbumin, Random Reviewed date:05/13/2024 04:20:15 PM Interpretation: Performing Lab:[address] [address] Notes/Report: Creatinine Urine 107.28 Microalbumin Urine 34.0 Microalbum/Creatinine Ratio Ur 31.6 <30 ug/mg cr Albumin/Creatinine Ratio Reference Ranges: Normal: < 30 ug/mg creatinine Microalbuminuria: 30 - 300 ug/mg creatinine Clinical Albuminuria: > 300 ug/mg creatinine Hemoglobin A1c Reviewed date:05/13/2024 04:20:15 PM Interpretation: Performing Lab:[address] [address] Notes/Report: Hemoglobin A1c % 6.6 <6.0 % Hemoglobin A1C Reference Range Adults: 4.8 - 6.0 % Non diabetic: < 6.0 % Goal: < 7.0 % Additional Action Suggested: > 8.0 % Note: Hemoglobin A1c results are invalid for patients with abnormal amounts of HbF. Blood transfusions may impact the HbA1c concentration in the patient sample. Estimated Average Glucose 143 eAG = Estimated average glucose which is %A1C expressed as average glucose, using the formula of the V3W-Nqxbjgg Average Glucose study (ADAG), Diabetes Care, Vol.31,#8, 2007 Sputum Culture Reviewed date:05/13/2024 04:20:15 PM Interpretation: Performing Lab:[facility], [address] [place] [phone] Notes/Report: Sputum Culture BAP Sputum Culture 4+ mixed upper-resp thomas O:HAESPE Haemophilus species Sputum Culture B-Lac Susc (reported) Sputum Culture Beta-lactamase not produced; suggests PEN/AMP susceptibility Sputum Culture Quant Org ID Sputum Culture 3+ Complete Blood Count Auto Di ff Reviewed date:09/18/2023 04:38:14 PM Interpretation: Performing Lab:[address] [address] Notes/Report: White Blood Count 5.9 4.8-10.8 X10*3/uL [...] 0.0-0.2 /100WBC Neutrophils Absolute Auto 3.9 2.0-8.3 x10*3/uL Imm Gran Abs Auto 0.05 0.00-0.03 X10*3/uL Lymphocytes Absolute Auto 1.4 1.2-4.9 X10*3/uL Monocytes Absolute Auto 0.4 0.1-1.2 X10*3/uL Eosinophils Absolute Auto 0.1 0.0-0.4 X10*3/uL Basophils Absolute Auto 0.0 0.0-0.2 X10*3/uL NRBC Abs Auto 0.000 0.0-0.012 X10*3/uL Comprehensive [place]. Panel Fa st Reviewed date:09/18/2023 04:38:14 PM Interpretation: Performing Lab:[facility], [address] [place] [phone] Notes/Report: Sodium 141 135-145 mmol/L Potassium 4.1 3.3-5.1 mmol/L Chloride 108 96-108 mmol/L Carbon Dioxide 25 22-29 mmol/L Anion Gap 12 12-20 Blood Urea Nitrogen 8 9-16 mg/dL Creatinine 0.90 0.5-1.4 mg/dL Estimated Glomerular Filt Rate > 60 NOTE: For -[place]oz[place] individuals, multiply the result by 1.210. Chronic [...] Panel Reviewed date:09/18/2023 04:38:14 PM Interpretation: Performing Lab:[address] [address] Notes/Report: Triglycerides 162 <150 mg/dL Desirable Triglyceride: [...] Antigen Reviewed date:09/18/2023 04:38:14 PM Interpretation: Performing Lab:[address] [address] Notes/Report: Prostate Specific Antigen 1.07 <0.05-4.0 ng/mL PSA methodology: Kessler Alinity i Chemiluminescent Microparticle Immunoassay (CMIA) Beta-2 Microglobulin, Serum Reviewed date:09/18/2023 04:38:14 PM Interpretation: Performing Lab:[facility], [address] [place] [phone] Notes/Report: Beta-2 Microglobulin, Serum 1.93 < OR = 2.51 mg/L THIS TEST WAS PERFORMED AT: [facility] [address] [place] [phone] REBECCA CHI MD Protein Electrophoresis, Ser um Reviewed date:09/29/2023 04:47:25 AM Interpretation: Performing Lab:[facility], [address] [place] [phone] Notes/Report: Prot Elec - Total Protein 5.8 [...] be considered. THIS TEST WAS PERFORMED AT: [facility] [address] [place] [phone] REBECCA CHI MD Immunofixation Pnl, Serum Reviewed date:09/29/2023 04:47:25 AM Interpretation: Performing Lab:[facility], [address] [place] [phone] Notes/Report: IgG 655 350-9541 mg/dL IgA 15 70-320 mg/dL IgM 326 50-300 mg/dL THIS TEST WAS PERFORMED AT: [facility] [address] [place] [phone] REBECCA CHI MD Immunofixation Interpretation SEE NOTE IgM kappa monoclonal band present. Viscosity Reviewed date:09/18/2023 04:38:14 PM Interpretation: Performing Lab:[facility], [address] [place] [phone] Notes/Report: Viscosity 1.5 1.5-1.9 rel to H2O Units = Relative to Water THIS TEST WAS PERFORMED AT: [facility] [address] RANDA ALVES MD,PHD Hemoglobin A1c Reviewed date:09/18/2023 04:38:14 PM Interpretation: Performing Lab:[facility], [address] [place] [phone] Notes/Report: Hemoglobin A1c % 6.2 <6.0 % [...] average glucose, using the formula of the Q0B-Ttdtybx Average Glucose study (ADAG), Diabetes Care, Vol.31,#8, Dec. 2007 Immunoglobulins,IgG IgA IgM Reviewed date:09/29/2023 04:47:25 AM Interpretation: Performing Lab:[address] [address] Notes/Report: IgG 221 765-5190 mg/dL IgA 11 70-320 mg/dL IgM 345 50-300 mg/dL THIS TEST WAS PERFORMED AT: [facility] [address] [place] [phone] REBECCA CHI MD Immunoglobulin G Subclasses Reviewed date:09/29/2023 04:47:25 AM Interpretation: Performing Lab:[facility], [address] [place] [phone] Notes/Report: Immunoglobulin G Subclass 1 172 382-929 mg/dL Immunoglobulin G Subclass 2 89 241-700 mg/dL Immunoglobulin G Subclass 3 15 22-178 mg/dL Immunoglobulin G Subclass 4 12.6 4-86 mg/dL Immunoglobulin G Total 579 722-2275 mg/dL THIS TEST WAS PERFORMED AT: [facility] [address] [place] [phone] REBECCA CHI MD XR chest 2V Reviewed date:12/23/2023 09:05:07 AM Interpretation: Performing Lab: Notes/Report: [address] [address] XRay Report Signed Patient: Ranjan Forman MR#: [id number] 3 : 1960 Acct:[id number] Age/Sex: 63 / M ADM Date: 09/22/23 Loc: ASIM[facility] Attending Dr: Humza Munroe MD Ordering Physician: Humza Munroe MD Date of Service: 09/22/23 Procedure(s): XR chest 2V Accession Number(s): [id number] cc: Humza Munroe MD EXAMINATION: XR CHEST [...] in OV> 10/10/23 0530 DD/ 1008 TD/TT: Jewish History Professor: [address] [address] XRay Report Signed Patient: Marybel Forman MR#: [id number] 3 : 1960 Acct:[id number] Age/Sex: 63 / M ADM Date: 09/22/23 Loc: STEFANI Attending Dr: Humza Munroe MD Ordering Physician: Humza Munroe MD Date of Service: 09/22/23 Procedure(s): XR cayla st 2V Accession Number(s): [id number] cc: Humza Munroe MD EXAMINATION: XR CHEST CLINICAL INFORMATION: Lymphoma, patient sa ys to check his chest COMPARISON: PET/CT 01/23/2023. Ch est radiographs 04/06/2022. TECHNIQUE: 2 views of the [...] in OV> 10/10/23 0530 DD/ 1008 TD/TT: Jewish History Professor: Complete Blood Count Auto Di ff Reviewed date:05/13/2024 04:20:15 PM Interpretation: Performing Lab:[facility], [address] [place] [phone] Notes/Report: White Blood Count 9.2 4.8-10.8 X10*3/uL Red Blood Count 5.00 4.60-5.80 X10*6/uL Hemoglobin 14.2 14.0-18.0 g/dl Hematocrit 40.1 42.0-52.0 % Mean Corpuscular Volume 80.2 80.0-98.0 fL Mean Corpuscular Hemoglobin 28.4 27.0-33.0 pg Mean Corpuscular HGB Conc 35.4 31.0-36.0 g/dl Red Cell Distribution Width 13.5 11.0-16.0 % Platelet Count 212 160-400 X10*3/uL Mean Platelet Volume 9.9 9.4-12.4 fL Neutrophils Percent Auto 80.1 45-73 % Imm Gran Pct Auto 0.8 0.0-0.4 % Lymphocytes Percent Auto 12.7 20-40 % Monocytes Percent Auto 4.9 2-11 % Eosinophils Percent Auto 1.1 0-4 % Basophils Percent Auto 0.4 0-2 % NRBC Pct Auto 0.0 0.0-0.2 /100WBC Neutrophils Absolute Auto 7.4 2.0-8.3 x10*3/uL Imm Gran Abs Auto 0.07 0.00-0.03 X10*3/uL Lymphocytes Absolute Auto 1.2 1.2-4.9 X10*3/uL Monocytes Absolute Auto 0.5 0.1-1.2 X10*3/uL Eosinophils Absolute Auto 0.1 0.0-0.4 X10*3/uL Basophils Absolute Auto 0.0 0.0-0.2 X10*3/uL NRBC Abs Auto 0.000 0.0-0.012 X10*3/uL Erythrocyte Sedimentation Ra te Reviewed date:05/13/2024 04:20:15 PM Interpretation: Performing Lab:[address] [address] Notes/Report: Erythrocyte Sedimentation Rate 28 0-15 MM/HR Patients with polycythemia and many hemoglobin abnormalities may have depressed sed rates whereas patients with anemia may have elevated sed rates. Comprehensive [place]. Panel Fa Reviewed date:05/13/2024 04:20:15 PM Interpretation: Performing Lab:[address] [address] Notes/Report: Sodium 141 135-145 mmol/L Potassium 3.7 3.3-5.1 mmol/L Chloride 105 96-108 mmol/L Carbon Dioxide 28 22-29 mmol/L Anion Gap 12 12-20 Blood Urea Nitrogen 7 9-16 mg/dL Creatinine 0.86 0.5-1.4 mg/dL Estimated Glomerular Filt Rate > 60 Chronic Kidney Disease: Estimated GFR < 60 mL/min/1.73m2 Severe Kidney Disease: Estimated GFR < 15 mL/min/1.73m2 Glucose Fasting 124 60-99 mg/dL A fasting glucose from 100-125 mg/dl is considered impaired (pre-diabetes). Calcium 9.0 8.4-10.2 mg/dL Bilirubin Total 0.6 0.0-1.0 mg/dL Aspartate Amino Transferase 20 5-37 U/L Alanine Aminotransferase 23 0-40 U/L Total Protein 6.6 6.5-8.0 g/dL Albumin Level 4.1 3.5-5.0 g/dL Alkaline Phosphatase 64 39-117 U/L Lactate Dehydrogenase Reviewed date:05/13/2024 04:20:15 PM Interpretation: Performing Lab:[address] [address] Notes/Report: Lactate Dehydrogenase 164 118-273 U/L Protein Electrophoresis, Ser um Reviewed date:05/22/2024 08:59:18 AM Interpretation: Performing Lab:[address] [address] Notes/Report: Prot Elec - Total Protein 6.7 6.1-8.1 g/dL Prot Elec - Albumin 4.1 3.8-4.8 g/dL Prot Elec - Alpha1 0.5 0.2-0.3 g/dL Prot Elec - Alpha2 0.9 0.5-0.9 g/dL Prot Elec - Beta 1 [...] be considered. THIS TEST WAS PERFORMED AT: [facility] [address] [place] [phone] REBECCA CHI MD Immunofixation Pnl, Serum Reviewed date:05/22/2024 08:59:18 AM Interpretation: Performing Lab:[facility], [address] [place] [phone] Notes/Report: IgG 374 764-0669 mg/dL IgA 10 70-320 mg/dL Verified by rep eat analysis. IgM 286 50-300 mg/dL THIS TEST WAS PERFORMED AT: [facility] [address] [place] [phone] REBECCA CHI MD Immunofixation Interpretation SEE NOTE IgM kappa monoclonal band present. Gram stain Reviewed date:05/13/2024 04:20:15 PM Interpretation: Performing Lab:[facility], [address] [place] [phone] Notes/Report: Gram stain Gram stain results: Gram stain 4+ polys Gram stain 2+ epithelial cells Gram stain 4+ Gram-positive cocci Gram stain 4+ Gram-negative diplococci Gram stain 4+ Gram-negative rods T Spot TB Reviewed date:05/13/2024 04:20:15 PM Interpretation: Performing Lab:[facility], [address] [place] [phone] Notes/Report: TSpotTB Negative Negative A negative test result does not exclude the possibility of exposure to or infection with Mycobacterium tuberculosis (M. tuberculosis). Patients with recent exposure to TB infected individuals exhibiting a negative T-SPOT.TB result should be considered for retesting within 6 weeks or if other relevant clinical symptoms indicate. Results from T-SPOT.TB testing must be used in conjunction with each individual's epidemiological history, current medical status, and results of other diagnostic evaluations. The T-SPOT.TB test is qualitative and results are reported as positive, borderline, or negative, given that the test controls perform as expected. In line with the Centers for Disease Control and Prevention's 2010 recommendation to report quantitative measurements alongside the qualitative result, the laboratory provides spot counts for informational purposes only. The T-SPOT.TB test should not be interpreted as a quantitative test. TS Panel A 0 TS Panel B 3 TS Negative Control Passed TS Positive Control Passed For additional information, please refer to http://education.Yummly/faq/FA Q215 (This link is being provided for informational/ educational purposes only.) THIS TEST WAS PERFORMED AT: [facility] [address] [address] RANDA ALVES MD,PHD XR chest 2V Reviewed date:05/13/2024 04:20:15 PM Interpretation: Performing Lab: Notes/Report: [address] [address] XRay Report Signed Patient: Ranjan Forman MR#: [id number] 3 : 1960 Acct:[id number] Age/Sex: 63 / M ADM Date: 05/08/24 Loc: STEFANI Attending Dr: Humza Munroe MD Ordering Physician: Humza Munroe MD Date of Service: 05/08/24 Procedure(s): XR chest 2V Accession Number(s): [id number] cc: Humza Munroe MD CLINICAL HISTORY: MALIGNANT LYMPHOPLASMACTIC LYMPHOMA,ACUTE COUGH 2 view chest x-ray. Comparison: CR/SR - XR CHEST 2V - 09/22/23 10:16 EDT CR/SR - XR CHEST 2V - 04/06/22 15:04 EST Findings: Normal lung volumes. Lungs are clear. No pneumothorax or pleural effusion. Heart size normal. No passive venous congestion. No midline shift or tracheal deviation. No acute fracture. Impression: 1. No acute cardiopulmonary disease. This document has been electronically signed by: Kota Dalton MD on 05/08/2024 11:37:42 Dictated By: Kota Dalton MD Signed By: <Electronically signed by Kota Dalton MD in OV> 05/08/24 113 DD/ 1137 TD/TT: 05/08/24 113 Jewish History Professor: [address] [address] XRay Report Signed Patient: Marybel Forman MR#: [id number] 3 : 1960 Acct:[id number] Age/Sex: 63 / M ADM Date: 05/08/24 Loc: HO.XRAY Attending Dr: Humza Munroe MD Ordering Physician: Humza Munroe MD Date of Service: 05/08/24 Procedure(s): XR cayla st 2V Accession Number(s): [id number] cc: Humza Munroe MD CLINICAL HISTORY: MALIGNANT LYMPHOPLASMACTIC LYMPHOMA,ACUTE COUGH 2 view chest x-ray. Comparison: CR/SR - XR CHEST 2V - 09/22/23 10:16 EDT CR/SR - XR CHEST 2V - 04/06/22 15:04 EST Findings: Normal lung volumes. Lungs are clear. No pneumothorax or pleural effusion. Heart size normal. N o passive venous congestion. No midline shift or tracheal deviation. No acute fracture. Impression: 1. No acute cardiopulmonary disease. This document has be en electronically signed by: Kota Dalton MD on 05/08/2024 11:37:42 Dictated By: Kota Dalton MD Signed By: <Electronically signed by Kota Dalton MD in OV> 05/08/24 1139 DD/ 1137 TD/TT: 05/08/24 1137 Jewish History Professor: Reason For Referral No Information Medications Medication SIG (Take, Route, Frequency, Duration) Notes Start Date End Date Status Allopurinol 100 MG TAKE 1 TABLET BY STEVEN TH EVERY DAY Active Brukinsa 80 MG 80mg tab two tabs twice a day Orally 160mg twice a day DX: C83.00 and C88.0 as Hgt 66 /kzo=115tvq 07/16/2024 Active Valsartan 160 MG TAKE 1 TABLET BY STEVEN TH EVERY DAY FOR 30 DAYS Active Immunizations Vaccine Route Administration Date Status [...] Problem Status W/U Status Risk Notes Problem 0195230 Former smoker (Z87.891) Active confirmed He remains highly motivated to remain abstinent. Problem 727914013 Thrombocytopenia (D69.6) Active confirmed Problem 517277757 Waldenstrom macroglobulinemia (C88.0) Active confirmed His viscosity has been acceptable. The IgM level is lower. The value will be repeated periodically. No change in his therapy is needed today. Problem Coronary artery disease (07732212) Coronary artery disease (I25.10) Active confirmed He has had no angina recently. He denies any peripheral edema or chest pain. Problem Benign prostatic hyperplasia (540877813) BPH (benign prostatic hyperplasia) (N40.0) Active confirmed He arises from sleep once a night to urinate. We have discussed lifestyle modifications he can make to reduce nocturia. Problem 45915309 Essential hypertension (I10) Active confirmed He will c ome to the office to measure his blood pressure which may need better control.The value today was 142/90 which is elevated likely due to the acute illness. 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 The IgM level has decreased. The abnormal protein level on electrophoresis has remained stable. His beta-2 microglobulin is normal. He will continue on ibrutinib.He is coughing and sputum production is likely viral but is going to be evaluated with blood work and a chest x-ray.He is medication is going to be zanubrutinib. Problem 054599941 Gastroesophageal reflux disease without esophagitis (K21.9) Active confirmed His reflux is well-controlled at this time with medication. No change in his regimen. He was needed. Problem Leukopenia (35710694) Chronic leukopenia (D72.819) Active confirmed His white blood cell count is now normal with the every other day dosing of ibrutinib. Problem 084862536 Type 2 diabetes mellitus without complication, without long-term current use of insulin (E11.9) Active confirmed He is compli ant with his medications. He is trying to lose weight. His hemoglobin A1c is 6.6. No change in his medications was made today. Problem 029790926 Type 2 diabetes mellitus without complication, unspecified whether residential insulin use (E11.9) Active confirmed Problem 379838758 Chronic gout without tophus, unspecified cause, unspecified site (M1A.9XX0) Active confirmed Since his last visit he has not had any episodes of gout. Problem 491661271 Acute bronchitis due to Haemophilus influenzae (J20.1) Active confirmed He has re covered rapidly from an episode of fever or bronchitis.. Sputum culture Moffa species. He did not need an antibiotic. He is now back at baseline. Vital Signs Heart Rate 64 /min 05/20/2024 Temperature 97.7 degrees Fahrenheit 05/20/2024 Oximetry 97 % 05/20/2024 Blood pressure diastolic 78 mm Hg 05/20/2024 Height 66 in 07/23/2024 Blood pressure systolic 136 mm Hg 05/20/2024 Weight 167 lbs 07/23/2024 BMI 26.95 kg/m2 07/23/2024 Encounters Encounter Location Date Provider Diagnosis Humza Munroe III, MD [address] [place] [address] [address] [place], [place] [address] 09/18/2023 Humza Munroe Malignant lymphoplasmacytic lymphoma C83.00 [...] Former smoker Z87.891 Humza Munroe III, MD [address] [place] [address] [place] [address] 10/03/2023 Humza Munroe Malignant lymphoplasmacytic lymphoma C83.00 ; Gastroesophageal reflux disease without esophagitis K21.9 ; Waldenstrom macroglobulinemia C88.0 ; Essential hypertension I10 ; Coronary artery disease I25.10 ; BPH (benign prostatic hyperplasia) N40.0 and Chronic gout without tophus, unspecified cause, unspecified site M1A.9XX0 Humza Munroe III, MD [address] [place] [address] [place] [address] 10/10/2023 Humza Munroe Malignant lymphoplasmacytic lymphoma C83.00 ; Essential hypertension I10 ; Coronary artery disease I25.10 ; BPH (benign prostatic hyperplasia) N40.0 and Chronic gout without tophus, unspecified cause, unspecified site M1A.9XX0 Humza Munroe III, MD [address] [place] [address] [place] [address] 05/08/2024 Humza Munroe Malignant lymphoplasmacytic lymphoma C83.00 ; Bronchitis J40 ; Gastroesophageal reflux disease without esophagitis K21.9 ; Waldenstrom macroglobulinemia C88.0 ; Essential hypertension I10 ; Coronary artery disease I25.10 ; Chronic gout without tophus, unspecified cause, unspecified site M1A.9XX0 ; Type 2 diabetes mellitus without complication, without long-term current use of insulin E11.9 ; Chronic leukopenia D72.819 ; Former smoker Z87.891 ; BPH (benign prostatic hyperplasia) N40.0 and Overweight E66.3 Humza Munroe III, MD [address] [place] [address] [place] [address] 05/20/2024 Humza Munroe Malignant lymphoplasmacytic lymphoma C83.00 ; Type 2 diabetes mellitus without complication, without long-term current use of insulin E11.9 ; BPH (benign prostatic hyperplasia) N40.0 ; Chronic leukopenia D72.819 ; Acute bronchitis due to Haemophilus influenzae J20.1 and Former smoker Z87.891 Humza Munroe III, MD [address] [place] [address] 07/23/2024 Humza Munroe Waldenstrom macroglobulinemia C88.0 ; Malignant lymphoplasmacytic lymphoma C83.00 ; Coronary artery disease I25.10 ; Gastroesophageal reflux disease without esophagitis K21.9 ; Former smoker Z87.891 and Overweight E66.3 Humza Munroe III, MD [address] [place] [address] 08/22/2023 Humza Munroe III, MD [address] [place] [address] 08/22/2023 Humza Munroe III, MD [address] [place] [address] 08/27/2023 Humza Munroe III, MD [address] [place] [address] [place] [address] 09/10/2023 Humza Munroe III, MD [address] [place] [address] [place] [address] 10/11/2023 Humza Munroe III, MD [address] [place] [address] [place] [address] 05/05/2024 Humza Munroe III, MD [address] [place] [address] [place] [address] 07/15/2024 Humza Munroe Malignant lymphoplasmacytic lymphoma C83.00 Humza Munroe III, MD [address] [place] [address] 07/21/2024 Humza Munroe III, MD [address] [place] [address] [place] [address] 07/22/2024 Humza Munroe III, MD [address] [place] [address] 07/31/2024 Humza Munroe III, MD [address] [place] [address] [place] [address] 08/08/2024 Humza Munroe III, MD [address] [place] [address] [place] [address] 08/12/2024 Humza Munroe Waldenstrom macroglobulinemia C88.0 and Malignant lymphoplasmacytic lymphoma C83.00 Assessments Encounter Date Diagnosis (ICD Code) Assessment Notes T reatment Notes Treatment Clinical Notes 09/18/2023 Malignant lymphoplasmacytic lymphoma (ICD-10 - C83.00) [...] continue. He will continue on ibrutinib. 05/08/2024 Bronchitis (ICD-10 - J40) He will have comprehensive blood work as well as a chest x-ray. He will have a sputum culture. He is going to call me if anything worsens. He appeared to be medically stable today. His vital signs are intact. 05/08/2024 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 The IgM level has decreased. The abnormal protein level on electrophoresis has remained stable. His beta-2 microglobulin is normal. He will continue on ibrutinib.He is coughing and sputum production is likely viral but is going to be evaluated with blood work and a chest x-ray. 05/20/2024 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 The IgM level has decreased. The abnormal protein level on electrophoresis has remained stable. His beta-2 microglobulin is normal. He will continue on ibrutinib.He is coughing and sputum production is likely viral but is going to be evaluated with blood work and a chest x-ray. 05/20/2024 Type 2 diabetes mellitus without complication, without long-term current use of insulin (ICD-10 - E11.9) He is compliant with his medications. He is trying to lose weight. His hemoglobin A1c is 6.6. No change in his medications was made today. 07/23/2024 Waldenstrom macroglobulinemia (ICD-10 - C88.0) His viscosity has been acceptable. The IgM level is lower. The value will be repeated periodically. No change in his therapy is needed today. 07/23/2024 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 The IgM level has decreased. The abnormal protein level on electrophoresis has remained stable. His beta-2 microglobulin is normal. He will continue on ibrutinib.He is coughing and sputum production is likely viral but is going to be evaluated with blood work and a chest x-ray.He is medication is going to be zanubrutinib. 07/15/2024 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 The IgM level has decreased. The abnormal protein level on electrophoresis has remained stable. His beta-2 microglobulin is normal. He will continue on ibrutinib.He is coughing and sputum production is likely viral but is going to be evaluated with blood work and a chest x-ray. 08/12/2024 Waldenstrom macroglobulinemia (ICD-10 - C88.0) 09/18/2023 Waldenstrom macroglobulinemia (ICD-10 - C88.0) His [...] any peripheral edema or chest pain. 05/08/2024 Gastroesophageal reflux disease without esophagitis (ICD-10 - K21.9) His reflux is well-controlled at this time with medication. No change in his regimen. He was needed. 05/20/2024 BPH (benign prostati c hyperplasia) (ICD-10 - N40.0) He arises from sleep once a night to urinate. We have discussed lifestyle modifications he can make to reduce nocturia. 07/23/2024 Coronary artery disease (ICD-10 - I25.10) He has had no angina recently. He denies any peripheral edema or chest pain. 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 05/08/2024 Waldenstrom macroglobulinemia (ICD-10 - C88.0) His viscosity has been acceptable. The IgM level is lower. The value will be repeated periodically. No change in his therapy is needed today. 05/20/2024 Chronic leukopenia (ICD-10 - D72.819) His white blood cell count is now normal with the every other day dosing of ibrutinib. 07/23/2024 Gastroesophageal reflux disease without esophagitis (ICD-10 - K21.9) His reflux is well-controlled at this time with medication. No change in his regimen. He was needed. 09/18/2023 Coronary artery disease (ICD-10 - I25.10) [...] has not had any episodes of gout. 05/08/2024 Essential hypertensi on (ICD-10 - I10) He will come to the office to measure his blood pressure which may need better control.The value today was 142/90 which is elevated likely due to the acute illness. 05/20/2024 Acute bronchitis due to Haemophilus influenzae (ICD-10 - J20.1) He has recovered rapidly from an episode of fever or bronchitis.. Sputum culture Moffa species. He did not need an antibiotic. He is now back at baseline. 07/23/2024 Former smoker (ICD-1 0 - Z87.891) He remains highly motivated to remain abstinent. 09/18/2023 Type 2 diabetes mellitus without complication, [...] modification as way to reduce nocturia. 05/08/2024 Coronary artery disease (ICD-10 - I25.10) He has had no angina recently. He denies any peripheral edema or chest pain. 05/20/2024 Former smoker (ICD-1 0 - Z87.891) He remains highly motivated to remain abstinent. 07/23/2024 Overweight (ICD-10 - E66.3) His weight is stable with a BMI of 27. We discussed diet and nutrition today. We discussed a diabetic diet. I recommended weight loss at a rate of one half of a pound per week to a diet restricted in fat calories and sodium and concentrated sweets. 09/18/2023 Chronic leukopenia (ICD-10 - D72.819) His white blood cell count remains normal. 10/03/2023 Chronic gout without tophus, unspecified cause, unspecified site (ICD-10 - M1A.9XX0) Since his last visit he has not had any episodes of gout. 05/08/2024 Chronic gout without tophus, unspecified cause, unspecified site (ICD-10 - M1A.9XX0) Since his last visit he has not had any episodes of gout. 09/18/2023 Chronic gout without tophus, unspecified cause, unspecified site (ICD-10 - M1A.9XX0) Since his last visit he has not had any episodes of gout. 05/08/2024 Type 2 diabetes mellitus without complication, without long-term current use of insulin (ICD-10 - E11.9) His hemoglobin A1c is 5.7. No change in his regimen was made today. Diabetes is controlled well. I have recommended weight loss and adherence to a diabetic diet. 09/18/2023 BPH (benign prostati c hyperplasia) (ICD-10 - N40.0) He rises from sleep once or twice nightly to urinate. We have discussed lifestyle modification as way to reduce nocturia. 05/08/2024 Chronic leukopenia (ICD-10 - D72.819) His white blood cell count remains normal. 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 There was no sign of recurrent lymphoma. Observation will continue. 05/08/2024 Former smoker (ICD-1 0 - Z87.891) He remains highly motivated to remain abstinent. 09/18/2023 Former smoker (ICD-1 0 - Z87.891) He remains highly motivated to remain abstinent. 05/08/2024 BPH (benign prostati c hyperplasia) (ICD-10 - N40.0) He rises from sleep once or twice nightly to urinate. We have discussed lifestyle modification as way to reduce nocturia. 05/08/2024 Overweight (ICD-10 - E66.3) His weight is stable with a BMI of 27. We discussed diet and nutrition today. We discussed a diabetic diet. I recommended weight loss at a rate of one half of a pound per week to a diet restricted in fat calories and sodium and concentrated sweets. Plan Of Treatment Pending Test Test Name Order Date PROFILE, FASTING (COMPREHENSIVE METABOLI C) 06/01/2023 PROFILE, FASTING (COMPREHENSIVE METABOLI C) 05/20/2024 PROFILE, FASTING (COMPREHENSIVE METABOLI C) 08/03/2020 PROFILE, FASTING (COMPREHENSIVE METABOLI C) 01/31/2023 PROFILE, FASTING (COMPREHENSIVE METABOLI C) 02/08/2021 PROFILE, FASTING (COMPREHENSIVE METABOLI C) 03/16/2023 PROFILE, FASTING (COMPREHENSIVE METABOLI C) 05/08/2024 PROFILE, FASTING (COMPREHENSIVE METABOLI C) 12/29/2022 PROFILE, RANDOM (COMPREHENSIVE METABOLIC ) 03/11/2020 PROFILE, RANDOM (COMPREHENSIVE METABOLIC ) 03/11/2019 PROFILE, RANDOM (COMPREHENSIVE METABOLIC ) 12/07/2020 PROFILE, RANDOM (COMPREHENSIVE METABOLIC ) 06/01/2020 PROFILE, RANDOM (COMPREHENSIVE METABOLIC ) 02/03/2019 PROFILE, RANDOM (COMPREHENSIVE METABOLIC ) 10/05/2020 PROFILE, RANDOM (COMPREHENSIVE METABOLIC ) 02/27/2022 PROFILE, RANDOM (COMPREHENSIVE METABOLIC ) 03/29/2020 PROFILE, RANDOM (COMPREHENSIVE METABOLIC ) 06/20/2021 PROFILE, RANDOM (COMPREHENSIVE METABOLIC ) 04/18/2021 PROFILE, RANDOM (COMPREHENSIVE METABOLIC ) 11/21/2021 PROFILE, RANDOM (COMPREHENSIVE METABOLIC ) 10/06/2019 PROFILE, RANDOM (COMPREHENSIVE METABOLIC ) 05/30/2022 PROFILE, RANDOM (COMPREHENSIVE METABOLIC ) 08/05/2019 PROFILE, RANDOM (COMPREHENSIVE METABOLIC ) 02/02/2020 PROFILE, RANDOM (COMPREHENSIVE METABOLIC ) 08/22/2021 PROFILE, RANDOM (COMPREHENSIVE METABOLIC ) 12/01/2019 HEMOGLOBIN A1C (GLYCOHEMOGLOBIN) 022 HEMOGLOBIN A1C (GLYCOHEMOGLOBIN) 023 HEMOGLOBIN A1C (GLYCOHEMOGLOBIN) 019 HEMOGLOBIN A1C (GLYCOHEMOGLOBIN) 021 HEMOGLOBIN A1C (GLYCOHEMOGLOBIN) 021 BUN 04/06/2020 CREATININE 04/06/2020 URIC ACID 01/31/2023 LIPID PANEL 08/22/2021 LIPID PANEL 12/29/2022 LIPID PANEL 06/01/2020 LIPID PANEL 01/31/2023 LIPID PANEL 02/08/2021 LDH 11/21/2021 LDH 10/06/2019 LDH 05/30/2022 LDH 08/05/2019 LDH 02/02/2020 LDH 02/08/2021 LDH 12/01/2019 LDH 03/11/2020 LDH 12/07/2020 LDH 08/22/2021 LDH 08/03/2020 LDH 10/05/2020 LDH 03/29/2020 LDH 06/20/2021 LDH 06/01/2020 LDH 04/18/2021 LDH 05/08/2024 FERRITIN 11/21/2021 FERRITIN 03/11/2020 FERRITIN 12/29/2022 VITAMIN B12 AND FOLATE 03/11/2020 PSA, TOTAL 06/01/2023 PSA, TOTAL 08/22/2021 RHEUMATOID FACTOR (RA, RF) 02/02/2020 MICROALBUMIN, RANDOM 08/22/2021 CBC w DIFF 06/01/2020 CBC w DIFF 01/31/2023 CBC w DIFF 08/12/2024 CBC w DIFF 08/22/2021 CBC w DIFF 04/18/2021 CBC w DIFF 05/08/2024 CBC w DIFF 10/06/2019 CBC w DIFF 05/30/2022 CBC w DIFF 08/05/2019 CBC w DIFF 02/08/2021 CBC w DIFF 12/01/2019 CBC w DIFF 11/21/2021 CBC w DIFF 02/02/2020 CBC w DIFF 03/11/2019 CBC w DIFF 12/07/2020 CBC w DIFF 02/27/2022 CBC w DIFF 12/29/2022 CBC w DIFF 08/03/2020 CBC w DIFF 03/11/2020 CBC w DIFF 06/20/2021 CBC w DIFF 10/05/2020 CBC w DIFF 03/29/2020 CBC with MANUAL DIFFERENTIAL 02/03/2019 SED RATE (ESR) 06/20/2021 SED RATE (ESR) 10/05/2020 SED RATE (ESR) 03/29/2020 SED RATE (ESR) 06/01/2020 SED RATE (ESR) 05/08/2024 SED RATE (ESR) 10/06/2019 SED RATE (ESR) 02/08/2021 SED RATE (ESR) 12/01/2019 SED RATE (ESR) 02/02/2020 SED RATE (ESR) 12/07/2020 SED RATE (ESR) 02/27/2022 SED RATE (ESR) 08/03/2020 SED RATE (ESR) 03/11/2020 URINALYSIS - CLEAN CATCH (UA) 02/15/2022 IMMUNOFIXATION PANEL, SERUM (IEP) 2020 IMMUNOFIXATION PANEL, SERUM (IEP) 2020 IMMUNOFIXATION PANEL, SERUM (IEP) 2022 IMMUNOFIXATION PANEL, SERUM (IEP) 2021 IMMUNOFIXATION PANEL, SERUM (IEP) 2021 IMMUNOFIXATION PANEL, SERUM (IEP) 2024 IMMUNOFIXATION PANEL, SERUM (IEP) 2020 IMMUNOFIXATION PANEL, SERUM (IEP) 2022 IMMUNOFIXATION PANEL, SERUM (IEP) 2019 IMMUNOFIXATION PANEL, SERUM (IEP) 2021 IMMUNOFIXATION PANEL, SERUM (IEP) 2024 IMMUNOFIXATION PANEL, SERUM (IEP) 2021 IMMUNOFIXATION PANEL, SERUM (IEP) 2019 IMMUNOFIXATION PANEL, SERUM (IEP) 2018 IMMUNOFIXATION PANEL, SERUM (IEP) 2019 IMMUNOFIXATION PANEL, SERUM (IEP) 2018 PROTEIN ELECTROPHORESIS, SERUM 1 PROTEIN ELECTROPHORESIS, SERUM 3 PROTEIN ELECTROPHORESIS, SERUM 2 PROTEIN ELECTROPHORESIS, SERUM 2 PROTEIN ELECTROPHORESIS, SERUM 5 PROTEIN ELECTROPHORESIS, SERUM 3 PROTEIN ELECTROPHORESIS, SERUM 2 PROTEIN ELECTROPHORESIS, SERUM 5 PROTEIN ELECTROPHORESIS, SERUM 3 PROTEIN ELECTROPHORESIS, SERUM 2 PROTEIN ELECTROPHORESIS, SERUM 3 VISCOSITY 08/03/2020 VISCOSITY 12/07/2020 VISCOSITY 04/18/2021 VISCOSITY 06/20/2021 VISCOSITY 08/05/2019 VISCOSITY 10/06/2019 VISCOSITY 02/03/2019 BETA-2 MICROGLOBULIN, SERUM 02/27/2022 BETA-2 MICROGLOBULIN, SERUM 12/29/2022 BETA-2 MICROGLOBULIN, SERUM 08/22/2021 BETA-2 MICROGLOBULIN, SERUM 11/21/2021 IMMUNOFIXATION PANEL, URINE 24 HR (IEP) 03/16/2023 ROUTINE CULTURE 03/11/[address] SKULL TO THIGHS 10/02/2018 US LEG RT VENOUS DOPPLER 03/11/2020 YESSENIA (ARABELLA) 02/02/2020 Echocardiogram 08/18/2019 Stress Test 08/13/2019 Stress Test 08/19/2019 PFT with DLCO 12/29/2022 CBC WITH AUTO DIFF 03/16/2023 CBC WITH AUTO DIFF 05/20/2024 CBC WITH AUTO DIFF 06/01/2023 T SPOT TB 02/27/2022 Uric Acid 05/20/2024 Lipid Panel 03/16/2023 Lipid Panel 05/20/2024 Lipid Panel 06/01/2023 Beta-2 Microglobulin, Serum 03/16/2023 Beta-2 Microglobulin, Serum 06/20/2021 Beta-2 Microglobulin, Serum 05/30/2022 Beta-2 Microglobulin, Serum 05/20/2024 Beta-2 Microglobulin, Serum 06/01/2023 Microalbumin, Random 03/16/2023 Microalbumin, Random 05/20/2024 Protein Electrophoresis, Serum Immunofixation Pnl, Serum 06/01/2023 T Spot TB 05/08/2024 Viscosity 06/01/2023 Urine Culture 02/15/2022 Hemoglobin A1c 06/01/2023 Hemoglobin A1c 03/16/2023 Next Appt Details Provider Name:Humza Munroe, 09/19/2024 04:00:00 PM, [address] [place] [address] , [place] [address], [place], [address], Insurance Providers Payer Name Payer Address Payer Phone Subscriber Number Group Number Insured Name Patient Relationship to Insured Coverage Start Date Coverage End Date [employer] [address] [place], [place] [phone] [id number] Ranjan Forman Self - patient is the insured Medical (General) History Medical History History ICD Code iron deficiency low B12 monoclonal IgM-k splenomegaly gerd gout lymphoplasmacytic lymphoma Waldenstrohms macroglobulinemia hyperviscosity syndrome Surgical History Surgery Date(Month/Year) No history bone marrow biopsy 08/2017 Hospitalization History Reason Date(Month/Year) No history
--- OUTSIDE RECORDS SUMMARY | 2024-08-18 07:11 | XMS_ITS | Data Portability ---
Author Organization [facility], [id number] Address [address] [place] [id number] Assessment No assessment recorded. Plan of Treatment Reminders Order Date Submit Date Provider Last Modified By Organization Details Last Modified Time Details Appointments None record ed. Lab None record ed. Referral None record ed. Procedures None record ed. Surgeries None record ed. Imaging None record ed. Medication Orders None record ed. Patient TargetsNo targets recorded. Patient InstructionsNo instructions recorded. Reason for Referral None Reported. Procedures Surgical History Date Name Laterality Status Provider Name and Address Organization Details Recorded Time 3 OC-UDS Send Out Template NON DOT completed JOHN Alvarez [facility] 12/19/2022 11:42:05 Imaging Results None recorded. Procedure Notes None recorded. Medical Equipment None Reported. Medications Name Sig Start Date Stop Date Status Note LastModified by Organization Details LastModified Time metformin 500 mg tablet TAKE 1 TABLET BY MOUTH EVERY DAY active Not Available Not Available No t Available doxycycline hyclate 100 mg capsule TAKE 1 CAPSULE BY MOUTH TWICE A DAY FOR 14 DAYS active Not Available Not Available No t Available prednisone 20 mg tablet TAKE 1 TABLET BY MOUTH EVERY DAY FOR 5 DAYS active Not Available Not Available No t Available allopurinol 100 mg tablet TAKE 1 TABLET BY MOUTH EVERY DAY FOR 30 DAYS active Not Available Not Available No t Available doxycycline monohydrate 100 mg tablet TAKE 1 TABLET BY MOUTH TWICE A DAY FOR 14 DAYS active Not Available Not Available No t Available levofloxacin 500 mg tablet TAKE 1 TABLET BY MOUTH EVERY DAY FOR 10 DAYS-INSU LAMBERTO NOT COVERING THIS FILL active Not Available Not Available No t Available valsartan 160 mg tablet TAKE 1 TABLET BY MOUTH EVERY DAY FOR 30 DAYS active Not Available Not Available No t Available Imbruvica 280 mg tablet active Not Available Not Available No t Available Paxlovid 300 mg (150 mg x 2)-100 mg tablets in a dose pack TAKE 3 TABLETS BY MOUTH TWICE DAILY FOR 5 DAYS active Not Available Not Available No t Available Vitals None Recorded Social History None recorded. Functional Status None recorded. Mental Status None recorded. Family History Nothing Reported. Medical History No medical history recorded. Past Encounters Encounter ID Performer Location Encounter Start Date Encounter Closed Date Diagnosis/Indication Diagnosis SNOMED-CT Code Diagnosis ICD10 Code Diagnosis Note [id number] [facility] [address] [place] [address] 11/11/2021 12:07:13 11/11/2021 13:08:56 [id number] [place] [id number] [facility] [address] [place] [address] 12/19/2022 11:13:48 12/19/2022 11:45:45 History and physical examination, occupation [id number] Z02.1 Health Concerns Section Related Observation LastModified by Organization Melodie perez LastModified Time None Recorded Concern Status LastModified by Organization Details LastModified Time None Recorded Advance Directives Directive None Recorded Payers Encounter Date Sequence Insurance Name Policy Number Policy Schumacher Covered Member ID Schumacher Member ID Guarantor Name 12/19/2022 [employer] Ranjan Forman
[2024-08-18 07:16] LABS: MANUAL DIFF FLAG NO
[2024-08-18 08:07] LABS: Basophils Percent Auto 0.5 % (0-2); Eosinophils Absolute Auto 0.1 X10*3/uL (0.0-0.4); Hematocrit 42.6 % (42.0-52.0); Imm Gran Abs Auto 0.02 X10*3/uL (0.00-0.03); Imm Gran Pct Auto 0.3 % (0.0-0.4); Lymphocytes Absolute Auto 1.4 X10*3/uL (1.2-4.9); Lymphocytes Percent Auto 23.9 % (20-40); Mean Corpuscular HGB Conc 35.2 g/dl (31.0-36.0); Mean Corpuscular Hemoglobin 27.9 pg (27.0-33.0); Mean Corpuscular Volume 79.3 fL (80.0-98.0); Mean Platelet Volume 10.4 fL (9.4-12.4); Monocytes Absolute Auto 0.4 X10*3/uL (0.1-1.2); Monocytes Percent Auto 7.3 % (2-11); Platelet Count 194 X10*3/uL (160-400); Red Blood Count 5.37 X10*6/uL (4.60-5.80); Red Cell Distribution Width 13.6 % (11.0-16.0)
== END 2024-08-18 07:09 | disposition home or self-care (01) ==
LOC: HO.LAB 07:08
PROVIDERS: Visit Provider Internal Medicine Medical Oncology
DX: C83.00 Small cell B-cell lymphoma, unspecified site (principal)
CPT/HCPCS: 36415; 85025

== ENCOUNTER 2024-09-13 07:58 | Outpatient (REF) | payer OTHER, SELFPAY ==
[2024-09-13 08:12] LABS: MANUAL DIFF FLAG NO
[2024-09-13 09:09] LABS: Basophils Percent Auto 0.2 % (0-2); Eosinophils Absolute Auto 0.1 X10*3/uL (0.0-0.4); Eosinophils Percent Auto 1.7 % (0-4); Hematocrit 41.2 % (42.0-52.0); Hemoglobin 14.9 g/dl (14.0-18.0); Imm Gran Abs Auto 0.03 X10*3/uL (0.00-0.03); Imm Gran Pct Auto 0.5 % (0.0-0.4); Lymphocytes Absolute Auto 1.3 X10*3/uL (1.2-4.9); Lymphocytes Percent Auto 21.1 % (20-40); Mean Corpuscular HGB Conc 36.2 g/dl (31.0-36.0); Mean Corpuscular Hemoglobin 28.2 pg (27.0-33.0); Mean Corpuscular Volume 77.9 fL (80.0-98.0); Mean Platelet Volume 9.9 fL (9.4-12.4); Monocytes Absolute Auto 0.5 X10*3/uL (0.1-1.2); Monocytes Percent Auto 7.6 % (2-11); Neutrophils Absolute Auto 4.1 x10*3/uL (2.0-8.3); Neutrophils Percent Auto 68.9 % (45-73); Platelet Count 174 X10*3/uL (160-400); Red Blood Count 5.29 X10*6/uL (4.60-5.80); Red Cell Distribution Width 13.5 % (11.0-16.0); White Blood Count 5.9 X10*3/uL (4.8-10.8)
[2024-09-13 10:03] LABS: Alanine Aminotransferase 20 U/L (0-40); Alkaline Phosphatase 81 U/L (39-117); Anion Gap 13 (12-20); Aspartate Amino Transferase 16 U/L (5-37); Bilirubin Total 0.7 mg/dL (0.0-1.0); Blood Urea Nitrogen 8 mg/dL (9-16); Calcium 9.1 mg/dL (8.4-10.2); Carbon Dioxide 24 mmol/L (22-29); Chloride 107 mmol/L (96-108); Estimated Glomerular Filt Rate > 60; Glucose Random 214 mg/dL (60-115); Potassium 3.7 mmol/L (3.3-5.1); Sodium 140 mmol/L (135-145); Total Protein 6.2 g/dL (6.5-8.0)
[2024-09-15 19:48] LABS: Beta-2 Microglobulin, Serum 2.01 mg/L (< OR = 2.51)
[2024-09-16 19:24] LABS: PES - Abn Protein Band 1 0.2 g/dL (NONE DETECTED); Prot Elec - Alpha1 0.3 g/dL (0.2-0.3); Prot Elec - Alpha2 0.5 g/dL (0.5-0.9); Prot Elec - Beta 1 0.5 g/dL (0.4-0.6); Prot Elec - Beta 2 0.3 g/dL (0.2-0.5); Prot Elec - Gamma 0.5 g/dL (0.8-1.7)
[2024-09-17 06:52] LABS: IgA 10 mg/dL (70-320); IgG 304 mg/dL (600-1540); IgM 316 mg/dL (50-300)
[2024-09-17 18:59] LABS: Viscosity 1.5 rel to H2O (1.5-1.9)
== END 2024-09-13 07:59 | disposition home or self-care (01) ==
LOC: HO.LAB 07:58
PROVIDERS: Visit Provider Internal Medicine Medical Oncology
DX: C83.00 Small cell B-cell lymphoma, unspecified site (principal); D70.9 Neutropenia, unspecified
CPT/HCPCS: 36415; 80053; 82232; 82784; 84165; 85025; 85810; 86334